=== PATIENT | female | born 1995 | race Caucasian/White ===

== ENCOUNTER 2020-12-06 05:33 | Observation (INO) | payer BC ==
--- NOTE | 2020-12-06 06:39 | ERPHSYRPT ---
- History of Present Illness Historian: patient Exam Limitations: other (Poor historian) Patient Subjective Stated Complaint: pt states "I was in [facility] for a week, got discharged yesterday and I'm still vomiting and having abd pain". Triage Nursing Assessment: pt c/o vomiting x2 this am, abd pain and unable to keep anything down. Pt was in [facility] x1 week, just got discharged yesterday, but not feeling any better. Pt c/o of hyperglycermia as well. Timing/Duration: other (1wk) Quality: aching, sharpness Abdominal Pain Onset Location: generalized abdomen Pain Radiation: no radiation Severity of Pain-Max: severe Severity of Pain-Current: moderate Modifying Factors: Improves With: nothing Associated Symptoms: loss of appetite, nausea, vomiting, No back, No chest pain, No diaphoresis, No diarrhea, No fever/chills, No fatigue, No headache, No heartburn, No neck pain, No rash, No shortness of breath, No syncope, No weakness Previous symptoms: same symptoms as today Hx Tetanus, Diphtheria Vaccination/Date Given: Yes Hx Influenza Vaccination/Date Given: No Hx Pneumococcal Vaccination/Date Given: No Immunizations Up to Date: Yes <HUNG SCANLON - Last Filed: 12/06/20 06:34> <ALMA GODINEZ - Last Filed: 12/06/20 10:32> - History of Present Illness Time Seen by Provider: 12/06/20 07:00 Physician History: 25 yo wf w N/V/generalized abdominal pain x 1wk. Pt released from [facility] on 12/05/20 after a 4 day stay for the same problems. Pt also had a week stay at [facility] the week before for the same problem. She has DM1 and denies hematemesis/melena/hematochezia/fever/chest pain/. Abdominal pain is generalized and rated 7/10. Nothing makes it better or worse. Accu check>200. (HUNG SCANLON) Allergies/Adverse Reactions: No Known Drug Allergies Allergy (Verified 12/06/20 05:59) Home Medications: Insulin Glargine,Hum.rec.anlog [Lantus] 38 unit SQ DAILY 12/06/20 [History] Insulin Lispro [Humalog Kwikpen U-100] 1 unit SQ TID PRN PRN 12/06/20 [History] Travel Risk - International Travel Have you traveled outside of the country in past 3 weeks: No - Coronavirus Screening Are you exhibiting any of the following symptoms?: Yes Symptoms: Vomiting/Diarrhea, Headaches/Body Aches/Fatigue Close contact with a COVID-19 positive Pt in past 14-21 Days: No - Vaccine Status Have you recieved a Covid-19 vaccination: No <HUNG SCANLON - Last Filed: 12/06/20 06:34> - Review of Systems Constitutional: No Symptoms, Fatigue, Lethargy Eyes: No Symptoms Ears, Nose, & Throat: No Symptoms Respiratory: No Symptoms Cardiac: No Symptoms Abdominal/Gastrointestinal: Abdominal Pain, Nausea, Vomiting, Appetite Changes, No Diarrhea, No Constipation, No Hematemesis, No Hematochezia, No Melena, No Dysphagia Genitourinary Symptoms: No Symptoms Musculoskeletal: No Symptoms Skin: No Symptoms Neurological: No Symptoms Psychological: No Symptoms Endocrine: No Symptoms Hematologic/Lymphatic: No Symptoms Immunological/Allergic: No Symptoms <HUNG SCANLON - Last Filed: 12/06/20 06:34> - Past Medical History Pertinent Past Medical History: Yes Cardiac History: Hypertension Endocrine Medical History: Diabetes Type I - Past Surgical History Past Surgical History: Yes Female Surgical History: Section, Tubal Ligation Other Surgical History: cyst removed from shoulder and back of head. - Social History Smoking Status: Never smoker Exposure to second hand smoke: Yes Drug Use: none Patient Lives Alone: No Significant Family History: no pertinent family hx - Female History Hx Last Menstrual Period: current Hx Now: No <HUNG SCANLON - Last Filed: 12/06/20 06:34> - Physical Exam General Appearance: no apparent distress, lethargy Eye Exam: PERRL/EOMI Ears, Nose, Throat Exam: normal ENT inspection, TMs normal, pharynx normal (Very poor dentition) Neck Exam: normal inspection, non-tender, supple Respiratory Exam: normal breath sounds, lungs clear, airway intact Cardiovascular Exam: tachycardia (Mild), No murmur Gastrointestinal/Abdomen Exam: soft, normal bowel sounds, No tenderness Back Exam: normal inspection, normal range of motion, No CVA tenderness Extremity Exam: normal inspection, normal range of motion Neurologic Exam: alert, oriented x 3, cooperative, [employer]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, normal mood/affect, sensation nml, No motor deficits, No sensory deficit Skin Exam: normal color, warm, dry, No rash Lymphatic Exam: No adenopathy SpO2 Interpretation: normal SpO2: 99 O2 Delivery: Room Air <HUNG SCANLON - Last Filed: 12/06/20 06:34> - Nursing Vital Signs Nursing Vital Signs: Initial Vital Signs Temperature 97.9 F 12/06/20 05:34 Pulse Rate 102 H 12/06/20 05:34 Respiratory Rate 16 12/06/20 05:34 Blood Pressure 138/108 12/06/20 05:34 O2 Sat by Pulse Oximetry 99 12/06/20 05:34 Pain Scale Pain Intensity 8 - Course Nursing assessment & vital signs reviewed: Yes <HUNG SCANLON - Last Filed: 12/06/20 06:34> - CT Exams Abdomen/Pelvis CT Interpretation: Tele-radiologist Report (Distal thoracic esophagus shows marked circumferential mucosal thickening possible GERD/possible esophagitis. Malignancy not likely but not completely excluded. Hepatic hemangioma, cholelithiasis, no signs of cholecystitis, urinary bladder distended, hydronephrosis, no appendicitis. Vascular calc) <ALMA GODINEZ - Last Filed: 12/06/20 10:32> Ordered Tests: Active Orders 24 hr Category Date Time Status ABDOMEN AND PELVIS W CONTRAST [CT] Stat Exams 12/06/20 07:52 Completed AMYLASE Stat Lab 12/06/20 07:00 Completed CBC W DIFF Stat Lab 12/06/20 07:00 Completed CMP Stat Lab 12/06/20 07:00 Completed CULTURE,URINE Stat Lab 12/06/20 06:59 Received HCG QUALITATIVE,SERUM Stat Lab 12/06/20 07:00 Completed LIPASE Stat Lab 12/06/20 07:00 Completed POCT GLUCOSE Stat Lab 12/06/20 05:52 Completed UA W/RFX UR CULTURE Stat Lab 12/06/20 06:59 Completed Urine Triage Profile Stat Lab 12/06/20 06:59 Completed Transfer Order Routine Transfer 12/06/20 Ordered Medication Summary Discontinued Medications Generic Name Dose Route Start Last Admin Trade Name Freq PRN Reason Stop Dose Admin Sodium Chloride 1,000 mls @ 999 mls/hr 12/06/20 06:40 12/06/20 08:11 Sodium Chloride 0.9% 1000 Ml IV 12/06/20 07:40 Infused .Q1H1M STA Infusion Sodium Chloride Confirm 12/06/20 06:52 Sodium Chloride 0.9% 1000 Ml Administered 12/06/20 06:53 Dose 1,000 mls @ ud .ROUTE .STK-MED ONE Ceftriaxone Sodium/Dextrose 1 g in 50 mls @ 100 mls/hr 12/06/20 07:46 12/06/20 08:49 Rocephin 1 Gm-D5w 50 Ml Bag IV 12/06/20 08:15 Infused STAT STA Infusion Ceftriaxone Sodium/Dextrose Confirm 12/06/20 07:54 Rocephin 1 Gm-D5w 50 Ml Bag Administered 12/06/20 07:55 Dose 1 g in 50 mls @ ud IV .STK-MED ONE Ondansetron HCl 4 mg 12/06/20 06:41 12/06/20 06:55 Zofran 4 Mg/2 Ml Vial IV 12/06/20 06:42 4 mg STAT ONE Administration Ondansetron HCl Confirm 12/06/20 06:52 Zofran 4 Mg/2 Ml Vial Administered 12/06/20 06:53 Dose 4 mg .ROUTE .STK-MED ONE Lab/Rad Data: Laboratory Result Diagrams 12/06/20 07:00 12/06/20 07:00 Laboratory Results 12/06/20 12/06/20 12/06/20 Range/Units 08:11 07:00 07:00 WBC (4.0-10.5) K/mm3 RBC (4.1-5.4) M/mm3 Hgb (12.0-16.0) gm/dl Hct (35-47) % MCV (78-100) fl MCH (26-32) pg MCHC (32-36) g/dl RDW (11.5-14.0) % Plt Count (150-450) K/mm3 MPV (7.5-11.0) fl Gran % (36.0-66.0) % Eos # (Auto) (0-0.5) Absolute Lymphs (auto) (1.0-4.6) Absolute Monos (auto) (0.0-1.3) Lymphocytes % (24.0-44.0) % Monocytes % (0.0-12.0) % Eosinophils % (0.00-5.0) % Basophils % (0.0-0.4) % Absolute Granulocytes (1.4-6.9) Basophils # (0-0.4) Sodium 131 L (137-145) mmol/L Potassium 3.8 (3.5-5.1) mmol/L Chloride 91 L (98-107) mmol/L Carbon Dioxide 32 H (22-30) mmol/L Anion Gap 11.5 (5-15) MEQ/L BUN 5 L (7-17) mg/dL Creatinine 0.47 L (0.52-1.04) mg/dL Estimated GFR > 60.0 ML/MIN Glucose 246 H (74-106) mg/dL POC Glucometer (74 to 106) mg/dL Calcium 9.5 (8.4-10.2) mg/dL Total Bilirubin 0.30 (0.2-1.3) mg/dL AST 22 (14-36) U/L ALT 17 (0-35) U/L Alkaline Phosphatase 160 H (38-126) U/L Serum Total Protein 7.2 (6.3-8.2) g/dL Albumin 3.8 (3.5-5.0) g/dL Amylase 53 (30-110) U/L Lipase 235 (23-300) U/L Serum , Qual NEGATIVE (Negative) Urine Color (YELLOW) Urine Appearance (CLEAR) Urine pH (5-6) Ur Specific [place] (1.005-1.025) Urine Protein (Negative) Urine Ketones (NEGATIVE) Urine Blood (0-5) Patrick/ul Urine Nitrite (NEGATIVE) Urine Bilirubin (NEGATIVE) Urine Urobilinogen (0-1) mg/dL Ur Leukocyte Esterase (NEGATIVE) Urine WBC (Auto) (0-5) /HPF Urine RBC (Auto) (0-2) /HPF U Epithel Cells (Auto) (FEW) /HPF Urine Bacteria (Auto) (NEGATIVE) /HPF Urine Culture Reflexed (NO) Urine Glucose (NEGATIVE) mg/dL Urine Opiates Level (NEGATIVE) Ur Methadone (NEGATIVE) Urine Barbiturates (NEGATIVE) Ur Phencyclidine (PCP) (NEGATIVE) Urine Amphetamine (NEGATIVE) U Benzodiazepine Level (NEGATIVE) Urine Cocaine (NEGATIVE) Urine Marijuana (THC) (NEGATIVE) Influenza Type A Ag NEGATIVE (NEGATIVE) Influenza Type B Ag NEGATIVE (NEGATIVE) RSV (PCR) NEGATIVE (Negative) SARS-CoV-2 (PCR) NEGATIVE (NEGATIVE) 12/06/20 12/06/20 12/06/20 Range/Units 07:00 06:59 06:59 WBC 5.2 (4.0-10.5) K/mm3 RBC 4.33 (4.1-5.4) M/mm3 Hgb 11.4 L (12.0-16.0) gm/dl Hct 36.5 (35-47) % MCV 84.3 (78-100) fl MCH 26.3 (26-32) pg MCHC 31.2 L (32-36) g/dl RDW 15.6 H (11.5-14.0) % Plt Count 302 (150-450) K/mm3 MPV 10.5 (7.5-11.0) fl Gran % 38.1 (36.0-66.0) % Eos # (Auto) 0.05 (0-0.5) Absolute Lymphs (auto) 2.68 (1.0-4.6) Absolute Monos (auto) 0.47 (0.0-1.3) Lymphocytes % 51.5 H (24.0-44.0) % Monocytes % 9.0 (0.0-12.0) % Eosinophils % 1.0 (0.00-5.0) % Basophils % 0.4 (0.0-0.4) % Absolute Granulocytes 1.98 (1.4-6.9) Basophils # 0.02 (0-0.4) Sodium (137-145) mmol/L Potassium (3.5-5.1) mmol/L Chloride (98-107) mmol/L Carbon Dioxide (22-30) mmol/L Anion Gap (5-15) MEQ/L BUN (7-17) mg/dL Creatinine (0.52-1.04) mg/dL Estimated GFR ML/MIN Glucose (74-106) mg/dL POC Glucometer (74 to 106) mg/dL Calcium (8.4-10.2) mg/dL Total Bilirubin (0.2-1.3) mg/dL AST (14-36) U/L ALT (0-35) U/L Alkaline Phosphatase (38-126) U/L Serum Total Protein (6.3-8.2) g/dL Albumin (3.5-5.0) g/dL Amylase (30-110) U/L Lipase (23-300) U/L Serum , Qual (Negative) Urine Color RED (YELLOW) Urine Appearance CLOUDY (CLEAR) Urine pH 9.0 (5-6) Ur Specific [place] 1.012 (1.005-1.025) Urine Protein 30 (Negative) Urine Ketones NEGATIVE (NEGATIVE) Urine Blood LARGE (0-5) Patrick/ul Urine Nitrite NEGATIVE (NEGATIVE) Urine Bilirubin NEGATIVE (NEGATIVE) Urine Urobilinogen NEGATIVE (0-1) mg/dL Ur Leukocyte Esterase MODERATE (NEGATIVE) Urine WBC (Auto) 16-25 (0-5) /HPF Urine RBC (Auto) >101 (0-2) /HPF U Epithel Cells (Auto) RARE (FEW) /HPF Urine Bacteria (Auto) FEW (NEGATIVE) /HPF Urine Culture Reflexed YES (NO) Urine Glucose >=500 (NEGATIVE) mg/dL Urine Opiates Level NEGATIVE (NEGATIVE) Ur Methadone NEGATIVE (NEGATIVE) Urine Barbiturates NEGATIVE (NEGATIVE) Ur Phencyclidine (PCP) NEGATIVE (NEGATIVE) Urine Amphetamine NEGATIVE (NEGATIVE) U Benzodiazepine Level NEGATIVE (NEGATIVE) Urine Cocaine NEGATIVE (NEGATIVE) Urine Marijuana (THC) NEGATIVE (NEGATIVE) Influenza Type A Ag (NEGATIVE) Influenza Type B Ag (NEGATIVE) RSV (PCR) (Negative) SARS-CoV-2 (PCR) (NEGATIVE) 12/06/20 Range/Units 05:52 WBC (4.0-10.5) K/mm3 RBC (4.1-5.4) M/mm3 Hgb (12.0-16.0) gm/dl Hct (35-47) % MCV (78-100) fl MCH (26-32) pg MCHC (32-36) g/dl RDW (11.5-14.0) % Plt Count (150-450) K/mm3 MPV (7.5-11.0) fl Gran % (36.0-66.0) % Eos # (Auto) (0-0.5) Absolute Lymphs (auto) (1.0-4.6) Absolute Monos (auto) (0.0-1.3) Lymphocytes % (24.0-44.0) % Monocytes % (0.0-12.0) % Eosinophils % (0.00-5.0) % Basophils % (0.0-0.4) % Absolute Granulocytes (1.4-6.9) Basophils # (0-0.4) Sodium (137-145) mmol/L Potassium (3.5-5.1) mmol/L Chloride (98-107) mmol/L Carbon Dioxide (22-30) mmol/L Anion Gap (5-15) MEQ/L BUN (7-17) mg/dL Creatinine (0.52-1.04) mg/dL Estimated GFR ML/MIN Glucose (74-106) mg/dL POC Glucometer 229 H (74 to 106) mg/dL Calcium (8.4-10.2) mg/dL Total Bilirubin (0.2-1.3) mg/dL AST (14-36) U/L ALT (0-35) U/L Alkaline Phosphatase (38-126) U/L Serum Total Protein (6.3-8.2) g/dL Albumin (3.5-5.0) g/dL Amylase (30-110) U/L Lipase (23-300) U/L Serum , Qual (Negative) Urine Color (YELLOW) Urine Appearance (CLEAR) Urine pH (5-6) Ur Specific [place] (1.005-1.025) Urine Protein (Negative) Urine Ketones (NEGATIVE) Urine Blood (0-5) Patrick/ul Urine Nitrite (NEGATIVE) Urine Bilirubin (NEGATIVE) Urine Urobilinogen (0-1) mg/dL Ur Leukocyte Esterase (NEGATIVE) Urine WBC (Auto) (0-5) /HPF Urine RBC (Auto) (0-2) /HPF U Epithel Cells (Auto) (FEW) /HPF Urine Bacteria (Auto) (NEGATIVE) /HPF Urine Culture Reflexed (NO) Urine Glucose (NEGATIVE) mg/dL Urine Opiates Level (NEGATIVE) Ur Methadone (NEGATIVE) Urine Barbiturates (NEGATIVE) Ur Phencyclidine (PCP) (NEGATIVE) Urine Amphetamine (NEGATIVE) U Benzodiazepine Level (NEGATIVE) Urine Cocaine (NEGATIVE) Urine Marijuana (THC) (NEGATIVE) Influenza Type A Ag (NEGATIVE) Influenza Type B Ag (NEGATIVE) RSV (PCR) (Negative) SARS-CoV-2 (PCR) (NEGATIVE) - Progress Progress: improved Discussed with : Gilberto Will see patient in: hospital (observation) Counseled pt/family regarding: lab results, diagnosis, rad results <ALMA GODINEZ - Last Filed: 12/06/20 10:32> - Progress Progress Note: 12/06/20 09:[address] Godinez at approximately [address] Godinez advised to follow-up on pending labs and reassess patient. Patient is a 25-year-old female presents to our ED with abdominal pain nausea and vomiting. Patient is type I diabetic. Patient recently released from [facility] for the same. Patient was experiencing nausea vomiting and abdominal pain. Patient symptoms have not improved since her discharge. Patient is experiencing the same complaints. I work-up reveals a urinary tract infection. Patient received a dose of Rocephin. Patient is mildly hyponatremic. IV fluids infused. Nausea treated. Patient received IV fluids. Patient still unable to tolerate p.o. Patient continues to complain of abdominal pain. CT abdomen pelvis completed. CT abdomen pelvis shows possible esophagitis/GERD, hepatic hemangioma cholelithiasis distended urinary bladder with collecting system dilation no appendicitis minimal atherosclerotic disease. Patent catheterized due to distended bladder possible outlet obstruction. 900 cc of urine expressed. Gordillo catheter maintained case discussed with Dr. Hill who accepts admission to observation. Patient is Covid negative. Plan of care discussed with patient. She agrees to admission at [facility] for further evaluation and treatment of her intractable nausea vomiting and abdominal discomfort. 12/06/20 09:57 12/06/20 10:10 12/06/20 10:31 (ALMA GODINEZ) <HUNG SCANLON - Last Filed: 12/06/20 06:34> - Departure Departure Disposition: Observation Critical Care Time: No <ALMA GODINEZ - Last Filed: 12/06/20 10:32> - Departure Clinical Impression: Nausea and vomiting, UTI (urinary tract infection), Abdominal pain, Hyponatremia, Esophagitis, GERD (gastroesophageal reflux disease), Liver hemangioma, Cholelithiasis, Hydronephrosis, Bladder distension, Vascular calcification, Urinary retention Condition: Stable Referrals: PATRICIA LACKEY [Primary Care Provider] -
[2020-12-06] MEDS ORDERED: Sodium Chloride 0.9% 1000 ML 1,000 ML IV STA (06:40)
[2020-12-06] MEDS ORDERED: Zofran 4 MG/2 ML VIAL IV ONE (06:41)
[2020-12-06] MEDS ORDERED: Sodium Chloride 0.9% 1000 ML 1,000 ML ONE (06:52)
[2020-12-06] MEDS ORDERED: Zofran 4 MG/2 ML VIAL ONE (06:52)
[2020-12-06 06:59] LABS: Absolute Neutrophil Ct (ANC) 1.98 (1.4-6.9); BASOPHIL % 0.4 % (0.0-0.4); Basophil (Absolute #) 0.02 (0-0.4); Eosinophil (Absolute #) 0.05 (0-0.5); Hematocrit 36.5 % (35-47); Hemoglobin 11.4 gm/dl (12.0-16.0); Lymphocyte (Absolute #) 2.68 (1.0-4.6); Lymphocytes % 51.5 % (24.0-44.0); Mean Cell Volume 84.3 fl (78-100); Mean Corpuscular Hemoglobin 26.3 pg (26-32); Mean Corpuscular Hgb Concent. 31.2 g/dl (32-36); Mean Platelet Volume 10.5 fl (7.5-11.0); Monocyte (Absolute #) 0.47 (0.0-1.3); Neutrophil % 38.1 % (36.0-66.0); Platelet Count 302 K/mm3 (150-450); Red Blood Count 4.33 M/mm3 (4.1-5.4); Red Cell Distribution Width 15.6 % (11.5-14.0); White Blood Count 5.2 K/mm3 (4.0-10.5)
[2020-12-06 07:17] LABS: ALBUMIN 3.8 g/dL (3.5-5.0); ALKALINE PHOSPHATASE 160 U/L (38-126); AMYLASE 53 U/L (30-110); ANION GAP 11.5 MEQ/L (5-15); BLOOD UREA NITROGEN 5 mg/dL (7-17); CHLORIDE 91 mmol/L (98-107); Calcium 9.5 mg/dL (8.4-10.2); Carbon Dioxide 32 mmol/L (22-30); Creatinine 1 0.47 mg/dL (0.52-1.04); EST GLOMERULAR FILTRATION RATE > 60.0 ML/MIN; Glucose 246 mg/dL (74-106); LIPASE 235 U/L (23-300); Potassium 3.8 mmol/L (3.5-5.1); SGOT/AST 22 U/L (14-36); SGPT/ALT 17 U/L (0-35); SODIUM 131 mmol/L (137-145); Total Protein 7.2 g/dL (6.3-8.2)
[2020-12-06 07:24] LABS: Appearance CLOUDY (CLEAR); Bacteria FEW /HPF (NEGATIVE); Bilirubin NEGATIVE (NEGATIVE); Blood LARGE Ery/ul (0-5); Epithelial Cells RARE /HPF (FEW); Glucose >=500 mg/dL (NEGATIVE); Ketones NEGATIVE (NEGATIVE); Leukocyte Esterase MODERATE (NEGATIVE); Nitrite NEGATIVE (NEGATIVE); Protein,Urine Dip 30 (Negative); Specific Gravity 1.012 (1.005-1.025); Urobilinogen NEGATIVE mg/dL (0-1)
[2020-12-06 07:28] LABS: RBC >101 /HPF (0-2)
[2020-12-06 07:30] LABS: Amphetamine,Urine NEGATIVE (NEGATIVE); Barbiturate,Urine NEGATIVE (NEGATIVE); Benzodiazepine,Urine NEGATIVE (NEGATIVE); Cocaine,Urine NEGATIVE (NEGATIVE); Methadone,Urine NEGATIVE (NEGATIVE); Opiate,Urine NEGATIVE (NEGATIVE); PCP,Urine NEGATIVE (NEGATIVE); THC,Urine NEGATIVE (NEGATIVE)
[2020-12-06] MEDS ORDERED: ROCEPHIN 1 Gm-D5w 50 ml Bag** 1 G/50 ML IVPB IV STA (07:46)
[2020-12-06] MEDS ORDERED: ROCEPHIN 1 Gm-D5w 50 ml Bag** 1 G/50 ML IVPB IV ONE (07:54)
[2020-12-06 09:47] LABS: INFLUENZA A NEGATIVE (NEGATIVE); INFLUENZA B NEGATIVE (NEGATIVE); RESPIRATORY SYNCTIAL VIRUS NEGATIVE (Negative)
--- NOTE | 2020-12-06 09:59 | XRAY ---
Exam: CT of the abdomen and pelvis with IV contrast from 12/06/2020. Total DLP: 307.26 mGy-cm Comparison: None. Indication: 25-year-old female with diffuse/generalized abdominal pain, nausea and vomiting for one week. Technique: Post-IV contrast axial images were obtained through the abdomen and pelvis during automated injection of 80 cc of Isovue-370 contrast material. Reconstructed coronal and sagittal images were created and reviewed. No oral contrast was administered. 2 sets of delayed images were obtained as well. Findings: The visualized lung bases are clear. The heart size is normal. There is marked circumferential mucosal thickening about the distal thoracic esophagus with only a tiny amount of central intraluminal air seen on axial images #8 through #10. Consider GERD/esophagitis. Malignancy is possible, but statistically less likely. Correlate clinically. The liver appears of normal size. There is a 1.5 cm diameter low-attenuation lesion within the lateral aspect of the right hepatic lobe which displays some eccentric focal enhancement at its anterior inferior margin. This likely represents a small hemangioma. On the delayed images, this lesion appears to fade except for some minimal residual peripheral enhancement. I believe there is a second tiny hemangioma within the inferior right hepatic lobe posteriorly as well. The gallbladder is mildly distended and reveals some high attenuation density within its posterior dependent aspect suggestive of cholelithiasis. No gallbladder wall thickening or biliary duct distention is seen. The spleen is of normal size and reveals no mass. There is a paucity of intraperitoneal fat due to the patient's thin body habitus. The pancreas appears grossly unremarkable. The adrenal glands appear normal size and configuration. The kidneys are normal size and reveal no calculi or mass. Both kidneys function. There appears to be mild right-sided hydronephrosis and minimal left-sided hydronephrosis. In addition, delay images reveal a moderately large extrarenal pelvis on the right and a mild to moderate sized extrarenal pelvis on the left. The diameter of both ureters appears increased, right greater than left. However, I see no obstructing ureteral stone. On the delay images within the upper pelvis, the right pelvic ureter measures 1.6 cm in diameter and the pelvic left ureter measures 1.1 cm in diameter. The urinary bladder weakly opacifies with the excreted urine contrast. It is markedly distended which may be accounting for the prominence of the upper collecting systems and ureters bilaterally, right greater than left. Minimal atherosclerotic vascular calcification is seen along the left margin of the distal abdominal aorta on axial image #38 of series 2 which is a bit unusual for a 25-year-old. Correlate clinically regarding diabetes. No abdominal aortic aneurysm or abnormal retroperitoneal lymphadenopathy is seen. There is no free intraperitoneal air or ventral abdominal wall hernia. The bowel is not distended. There is no evidence of bowel obstruction. The stomach lumen and small bowel are largely unopacified. Some contrast is seen with the cecum, ascending colon, and transverse colon. This may represent medication that the patient has ingested. I see no definite findings of acute appendicitis within the right lower quadrant. The uterus is anteflexed and tilted mildly toward the right.. There is no free intraperitoneal fluid or abnormal pelvic lymphadenopathy. The pelvic adnexa appear unremarkable. The bladder is significantly enlarged rising to the level of the inferior vertebral endplate of L4. On sagittal image #85, this measures 14.5 cm in craniocaudal dimension and 7.7 cm in AP dimension. On coronal image #44, the urinary bladder measures 10.2 cm in maximum width. The skeleton reveals no acute fracture or aggressive bone lesion. Impression: 1. Within the distal thoracic esophagus, there is marked circumferential mucosal thickening. For example, see axial image #8 of series 2. This may be due to GERD or distal thoracic esophagitis. Other etiologies including malignancy are not completely excluded. Correlate clinically. 2. There is a probable small hepatic hemangioma measuring 1.5 cm in diameter within the mid lateral aspect of the right hepatic lobe. This is an incidental finding. There is also a suggestion of a tiny second hepatic hemangioma within the inferior posterior aspect of the right hepatic lobe on axial image #34 of series 2. 3. Cholelithiasis. No gallbladder wall thickening or biliary duct distention is seen. 4. The urinary bladder is markedly distended rising to the level of the inferior endplate of L4. This may be causing the prominence of the upper collecting systems and ureters, right greater than left. Correlate clinically regarding bladder outlet obstruction. I do not see an obstructing ureteral stone. The remainder of the kidneys appears unremarkable. 5. I see no findings of acute appendicitis or other acute disease within the abdomen and pelvis. 6. Minimal atherosclerotic vascular calcification is seen within the distal abdominal aorta. See above.
[2020-12-06] MEDS: MORPHINE SULFATE 2 MG INJ IV PRN ×4 (10:58→22:57)
[2020-12-06] MEDS: Sodium Chloride 0.9% 1000 ML 1,000 ML IV SCH ×2 (11:00→19:49)
[2020-12-06] MEDS: ROCEPHIN 1 Gm-D5w 50 ml Bag** 1 G/50 ML IVPB IV SCH (11:01)
[2020-12-06] MEDS: Coreg 3.125 MG PO SCH ×2 (12:05→21:42)
[2020-12-06] MEDS: Zofran 4 MG/2 ML VIAL IV PRN ×2 (12:22→18:47)
[2020-12-06] MEDS: Reglan 10 MG/2 ML IV SCH ×2 (13:30→17:26)
[2020-12-06] MEDS: PROTONIX 40 MG IV IV SCH (13:31)
--- NOTE | 2020-12-06 20:32 | PCM.HP ---
History of Present Illness - Chief Complaint Chief Complaint: intractable nausea and vomiting for 3-4 days History of Present Illness: is a 25 year old female.N/V/generalized abdominal pain x 1wk. Pt released from [facility] on 12/05/20 after a 4 day stay for the same problems. Pt also had a week stay at [facility] the week before for the same problem. She has DM1 and denies hematemesis/melena/hematochezia/fever/chest pain/. Abdominal pain is generalized and rated 7/10. Nothing makes it better or worse. Accu check>200. - Review of Systems Constitutional: Fatigue, Lethargy, Malaise, Weakness, No Fever, No Chills Eyes: No Symptoms Ears, Nose, & Throat: No Symptoms Respiratory: No Cough, No Short Of Breath Cardiac: No Chest Pain, No Edema, No Syncope Abdominal/Gastrointestinal: Abdominal Pain, Nausea, Vomiting, No Diarrhea Genitourinary Symptoms: No Dysuria Musculoskeletal: No Back Pain, No Neck Pain Skin: No Rash Neurological: No Dizziness, No Focal Weakness, No Sensory Changes Psychological: No Symptoms Endocrine: No Symptoms Hematologic/Lymphatic: No Symptoms Immunological/Allergic: No Symptoms Medications & Allergies Home Medications: Home Medication List Carvedilol 3.125 mg [Coreg 3.125 MG] 3.125 mg PO BID 12/06/20 [History Confirmed 12/06/20] Insulin Glargine,Hum.rec.anlog [Lantus] 38 unit SQ DAILY 12/06/20 [History Confirmed 12/06/20] Insulin Lispro [Humalog Kwikpen U-100] 1 unit SQ TID PRN PRN 12/06/20 [History Confirmed 12/06/20] Allergies/Adverse Reactions: Allergies Allergy/AdvReac Type Severity Reaction Status Date / Time No Known Drug Allergies Allergy Verified 12/06/20 05:59 - Past Medical History Past Medical History: Yes Cardiac History: Hypertension Endocrine Medical History: Diabetes Type I - Female History Hx Last Menstrual Period: current Are you now?: No - Past Surgical History Past Surgical History: Yes Female Surgical History: Section, Tubal Ligation Other Surgical History: cyst removed from shoulder and back of head. - Social History Smoking Status: Never smoker Exposure to second hand smoke: Yes Alcohol: None Drug Use: none Significant Family History: no pertinent family hx - Physical Exam Vital Signs: Vital Signs - 24 hr Temp Pulse Resp BP Pulse Ox 12/06/20 16:00 99.3 F 93 H 14 120/86 99 12/06/20 12:00 97 H 18 148/105 99 12/06/20 09:08 97 H 18 148/105 99 12/06/20 08:02 103 H 18 113/91 98 12/06/20 07:33 100 H 20 167/108 100 12/06/20 06:48 99 12/06/20 05:34 97.9 F 102 H 16 138/108 99 General Appearance: no apparent distress, alert Neurologic Exam: alert, oriented x 3, cooperative, normal mood/affect, nml cerebellar function, nml station & gait, sensation nml, No motor deficits Eye Exam: PERRL/EOMI, eyes nml inspection Ears, Nose, Throat Exam: normal ENT inspection, TMs normal, pharynx normal, moist mucous membranes Neck Exam: normal inspection, non-tender, supple, full range of motion Respiratory Exam: normal breath sounds, lungs clear, No respiratory distress Cardiovascular Exam: regular rate/rhythm, normal heart sounds, normal peripheral pulses Gastrointestinal/Abdomen Exam: soft, normal bowel sounds, No tenderness, No mass Back Exam: normal inspection, normal range of motion, No CVA tenderness, No vertebral tenderness Extremity Exam: normal inspection, normal range of motion, pelvis stable Skin Exam: normal color, warm, dry, No rash Lymphatic Exam: No adenopathy Results - Labs Lab/Micro Results: Lab Results-Last 24 Hours 12/06/20 12/06/20 12/06/20 Range/Units 05:52 06:59 06:59 WBC (4.0-10.5) K/mm3 RBC (4.1-5.4) M/mm3 Hgb (12.0-16.0) gm/dl Hct (35-47) % MCV (78-100) fl MCH (26-32) pg MCHC (32-36) g/dl RDW (11.5-14.0) % Plt Count (150-450) K/mm3 MPV (7.5-11.0) fl Gran % (36.0-66.0) % Eos # (Auto) (0-0.5) Absolute Lymphs (auto) (1.0-4.6) Absolute Monos (auto) (0.0-1.3) Lymphocytes % (24.0-44.0) % Monocytes % (0.0-12.0) % Eosinophils % (0.00-5.0) % Basophils % (0.0-0.4) % Absolute Granulocytes (1.4-6.9) Basophils # (0-0.4) Sodium (137-145) mmol/L Potassium (3.5-5.1) mmol/L Chloride (98-107) mmol/L Carbon Dioxide (22-30) mmol/L Anion Gap (5-15) MEQ/L BUN (7-17) mg/dL Creatinine (0.52-1.04) mg/dL Estimated GFR ML/MIN Glucose (74-106) mg/dL POC Glucometer 229 H (74 to 106) mg/dL Hemoglobin A1c (4.5-6.0) % Calcium (8.4-10.2) mg/dL Total Bilirubin (0.2-1.3) mg/dL AST (14-36) U/L ALT (0-35) U/L Alkaline Phosphatase (38-126) U/L Serum Total Protein (6.3-8.2) g/dL Albumin (3.5-5.0) g/dL Amylase (30-110) U/L Lipase (23-300) U/L Serum , Qual (Negative) Urine Color RED (YELLOW) Urine Appearance CLOUDY (CLEAR) Urine pH 9.0 (5-6) Ur Specific [place] 1.012 (1.005-1.025) Urine Protein 30 (Negative) Urine Ketones NEGATIVE (NEGATIVE) Urine Blood LARGE (0-5) Patrick/ul Urine Nitrite NEGATIVE (NEGATIVE) Urine Bilirubin NEGATIVE (NEGATIVE) Urine Urobilinogen NEGATIVE (0-1) mg/dL Ur Leukocyte Esterase MODERATE (NEGATIVE) Urine WBC (Auto) 16-25 (0-5) /HPF Urine RBC (Auto) >101 (0-2) /HPF U Epithel Cells (Auto) RARE (FEW) /HPF Urine Bacteria (Auto) FEW (NEGATIVE) /HPF Urine Culture Reflexed YES (NO) Urine Glucose >=500 (NEGATIVE) mg/dL Urine Opiates Level NEGATIVE (NEGATIVE) Ur Methadone NEGATIVE (NEGATIVE) Urine Barbiturates NEGATIVE (NEGATIVE) Ur Phencyclidine (PCP) NEGATIVE (NEGATIVE) Urine Amphetamine NEGATIVE (NEGATIVE) U Benzodiazepine Level NEGATIVE (NEGATIVE) Urine Cocaine NEGATIVE (NEGATIVE) Urine Marijuana (THC) NEGATIVE (NEGATIVE) Influenza Type A Ag (NEGATIVE) Influenza Type B Ag (NEGATIVE) RSV (PCR) (Negative) SARS-CoV-2 (PCR) (NEGATIVE) 12/06/20 12/06/20 12/06/20 Range/Units 07:00 07:00 07:00 WBC 5.2 (4.0-10.5) K/mm3 RBC 4.33 (4.1-5.4) M/mm3 Hgb 11.4 L (12.0-16.0) gm/dl Hct 36.5 (35-47) % MCV 84.3 (78-100) fl MCH 26.3 (26-32) pg MCHC 31.2 L (32-36) g/dl RDW 15.6 H (11.5-14.0) % Plt Count 302 (150-450) K/mm3 MPV 10.5 (7.5-11.0) fl Gran % 38.1 (36.0-66.0) % Eos # (Auto) 0.05 (0-0.5) Absolute Lymphs (auto) 2.68 (1.0-4.6) Absolute Monos (auto) 0.47 (0.0-1.3) Lymphocytes % 51.5 H (24.0-44.0) % Monocytes % 9.0 (0.0-12.0) % Eosinophils % 1.0 (0.00-5.0) % Basophils % 0.4 (0.0-0.4) % Absolute Granulocytes 1.98 (1.4-6.9) Basophils # 0.02 (0-0.4) Sodium 131 L (137-145) mmol/L Potassium 3.8 (3.5-5.1) mmol/L Chloride 91 L (98-107) mmol/L Carbon Dioxide 32 H (22-30) mmol/L Anion Gap 11.5 (5-15) MEQ/L BUN 5 L (7-17) mg/dL Creatinine 0.47 L (0.52-1.04) mg/dL Estimated GFR > 60.0 ML/MIN Glucose 246 H (74-106) mg/dL POC Glucometer (74 to 106) mg/dL Hemoglobin A1c (4.5-6.0) % Calcium 9.5 (8.4-10.2) mg/dL Total Bilirubin 0.30 (0.2-1.3) mg/dL AST 22 (14-36) U/L ALT 17 (0-35) U/L Alkaline Phosphatase 160 H (38-126) U/L Serum Total Protein 7.2 (6.3-8.2) g/dL Albumin 3.8 (3.5-5.0) g/dL Amylase 53 (30-110) U/L Lipase 235 (23-300) U/L Serum , Qual NEGATIVE (Negative) Urine Color (YELLOW) Urine Appearance (CLEAR) Urine pH (5-6) Ur Specific [place] (1.005-1.025) Urine Protein (Negative) Urine Ketones (NEGATIVE) Urine Blood (0-5) Patrick/ul Urine Nitrite (NEGATIVE) Urine Bilirubin (NEGATIVE) Urine Urobilinogen (0-1) mg/dL Ur Leukocyte Esterase (NEGATIVE) Urine WBC (Auto) (0-5) /HPF Urine RBC (Auto) (0-2) /HPF U Epithel Cells (Auto) (FEW) /HPF Urine Bacteria (Auto) (NEGATIVE) /HPF Urine Culture Reflexed (NO) Urine Glucose (NEGATIVE) mg/dL Urine Opiates Level (NEGATIVE) Ur Methadone (NEGATIVE) Urine Barbiturates (NEGATIVE) Ur Phencyclidine (PCP) (NEGATIVE) Urine Amphetamine (NEGATIVE) U Benzodiazepine Level (NEGATIVE) Urine Cocaine (NEGATIVE) Urine Marijuana (THC) (NEGATIVE) Influenza Type A Ag (NEGATIVE) Influenza Type B Ag (NEGATIVE) RSV (PCR) (Negative) SARS-CoV-2 (PCR) (NEGATIVE) 12/06/20 12/06/20 12/06/20 Range/Units 08:11 11:23 13:00 WBC (4.0-10.5) K/mm3 RBC (4.1-5.4) M/mm3 Hgb (12.0-16.0) gm/dl Hct (35-47) % MCV (78-100) fl MCH (26-32) pg MCHC (32-36) g/dl RDW (11.5-14.0) % Plt Count (150-450) K/mm3 MPV (7.5-11.0) fl Gran % (36.0-66.0) % Eos # (Auto) (0-0.5) Absolute Lymphs (auto) (1.0-4.6) Absolute Monos (auto) (0.0-1.3) Lymphocytes % (24.0-44.0) % Monocytes % (0.0-12.0) % Eosinophils % (0.00-5.0) % Basophils % (0.0-0.4) % Absolute Granulocytes (1.4-6.9) Basophils # (0-0.4) Sodium (137-145) mmol/L Potassium (3.5-5.1) mmol/L Chloride (98-107) mmol/L Carbon Dioxide (22-30) mmol/L Anion Gap (5-15) MEQ/L BUN (7-17) mg/dL Creatinine (0.52-1.04) mg/dL Estimated GFR ML/MIN Glucose (74-106) mg/dL POC Glucometer 203 H (74 to 106) mg/dL Hemoglobin A1c > 14.00 H (4.5-6.0) % Calcium (8.4-10.2) mg/dL Total Bilirubin (0.2-1.3) mg/dL AST (14-36) U/L ALT (0-35) U/L Alkaline Phosphatase (38-126) U/L Serum Total Protein (6.3-8.2) g/dL Albumin (3.5-5.0) g/dL Amylase (30-110) U/L Lipase (23-300) U/L Serum , Qual (Negative) Urine Color (YELLOW) Urine Appearance (CLEAR) Urine pH (5-6) Ur Specific [place] (1.005-1.025) Urine Protein (Negative) Urine Ketones (NEGATIVE) Urine Blood (0-5) Patrick/ul Urine Nitrite (NEGATIVE) Urine Bilirubin (NEGATIVE) Urine Urobilinogen (0-1) mg/dL Ur Leukocyte Esterase (NEGATIVE) Urine WBC (Auto) (0-5) /HPF Urine RBC (Auto) (0-2) /HPF U Epithel Cells (Auto) (FEW) /HPF Urine Bacteria (Auto) (NEGATIVE) /HPF Urine Culture Reflexed (NO) Urine Glucose (NEGATIVE) mg/dL Urine Opiates Level (NEGATIVE) Ur Methadone (NEGATIVE) Urine Barbiturates (NEGATIVE) Ur Phencyclidine (PCP) (NEGATIVE) Urine Amphetamine (NEGATIVE) U Benzodiazepine Level (NEGATIVE) Urine Cocaine (NEGATIVE) Urine Marijuana (THC) (NEGATIVE) Influenza Type A Ag NEGATIVE (NEGATIVE) Influenza Type B Ag NEGATIVE (NEGATIVE) RSV (PCR) NEGATIVE (Negative) SARS-CoV-2 (PCR) NEGATIVE (NEGATIVE) 12/06/20 Range/Units 16:05 WBC (4.0-10.5) K/mm3 RBC (4.1-5.4) M/mm3 Hgb (12.0-16.0) gm/dl Hct (35-47) % MCV (78-100) fl MCH (26-32) pg MCHC (32-36) g/dl RDW (11.5-14.0) % Plt Count (150-450) K/mm3 MPV (7.5-11.0) fl Gran % (36.0-66.0) % Eos # (Auto) (0-0.5) Absolute Lymphs (auto) (1.0-4.6) Absolute Monos (auto) (0.0-1.3) Lymphocytes % (24.0-44.0) % Monocytes % (0.0-12.0) % Eosinophils % (0.00-5.0) % Basophils % (0.0-0.4) % Absolute Granulocytes (1.4-6.9) Basophils # (0-0.4) Sodium (137-145) mmol/L Potassium (3.5-5.1) mmol/L Chloride (98-107) mmol/L Carbon Dioxide (22-30) mmol/L Anion Gap (5-15) MEQ/L BUN (7-17) mg/dL Creatinine (0.52-1.04) mg/dL Estimated GFR ML/MIN Glucose (74-106) mg/dL POC Glucometer 177 H (74 to 106) mg/dL Hemoglobin A1c (4.5-6.0) % Calcium (8.4-10.2) mg/dL Total Bilirubin (0.2-1.3) mg/dL AST (14-36) U/L ALT (0-35) U/L Alkaline Phosphatase (38-126) U/L Serum Total Protein (6.3-8.2) g/dL Albumin (3.5-5.0) g/dL Amylase (30-110) U/L Lipase (23-300) U/L Serum , Qual (Negative) Urine Color (YELLOW) Urine Appearance (CLEAR) Urine pH (5-6) Ur Specific [place] (1.005-1.025) Urine Protein (Negative) Urine Ketones (NEGATIVE) Urine Blood (0-5) Patrick/ul Urine Nitrite (NEGATIVE) Urine Bilirubin (NEGATIVE) Urine Urobilinogen (0-1) mg/dL Ur Leukocyte Esterase (NEGATIVE) Urine WBC (Auto) (0-5) /HPF Urine RBC (Auto) (0-2) /HPF U Epithel Cells (Auto) (FEW) /HPF Urine Bacteria (Auto) (NEGATIVE) /HPF Urine Culture Reflexed (NO) Urine Glucose (NEGATIVE) mg/dL Urine Opiates Level (NEGATIVE) Ur Methadone (NEGATIVE) Urine Barbiturates (NEGATIVE) Ur Phencyclidine (PCP) (NEGATIVE) Urine Amphetamine (NEGATIVE) U Benzodiazepine Level (NEGATIVE) Urine Cocaine (NEGATIVE) Urine Marijuana (THC) (NEGATIVE) Influenza Type A Ag (NEGATIVE) Influenza Type B Ag (NEGATIVE) RSV (PCR) (Negative) SARS-CoV-2 (PCR) (NEGATIVE) Accuchecks Date 12/06/20 Date 12/06/20 Date 12/06/20 Time 16:19 Time 12:02 Time 06:20 - Radiology Impressions Radiology Exams & Impressions: Radiology Procedures Category Date Time Status ABDOMEN AND PELVIS W CONTRAST [CT] Stat Exams 12/06/20 07:[address]/ABDOMEN AND PELVIS W CONTRAST Exam: CT of the abdomen and pelvis with IV contrast from 12/06/2020. Total DLP: 307.26 mGy-cm Comparison: None. Indication: 25-year-old female with diffuse/generalized abdominal pain, nausea and vomiting for one week. Technique: Post-IV contrast axial images were obtained through the abdomen and pelvis during automated injection of 80 cc of Isovue-370 contrast material. Reconstructed coronal and sagittal images were created and reviewed. No oral contrast was administered. 2 sets of delayed images were obtained as well. Findings: The visualized lung bases are clear. The heart size is normal. There is marked circumferential mucosal thickening about the distal thoracic esophagus with only a tiny amount of central intraluminal air seen on axial images #8 through #10. Consider GERD/esophagitis. Malignancy is possible, but statistically less likely. Correlate clinically. The liver appears of normal size. There is a 1.5 cm diameter low-attenuation lesion within the lateral aspect of the right hepatic lobe which displays some eccentric focal enhancement at its anterior inferior margin. This likely represents a small hemangioma. On the delayed images, this lesion appears to fade except for some minimal residual peripheral enhancement. I believe there is a second tiny hemangioma within the inferior right hepatic lobe posteriorly as well. The gallbladder is mildly distended and reveals some high attenuation density within its posterior dependent aspect suggestive of cholelithiasis. No gallbladder wall thickening or biliary duct distention is seen. The spleen is of normal size and reveals no mass. There is a paucity of intraperitoneal fat due to the patient's thin body habitus. The pancreas appears grossly unremarkable. The adrenal glands appear normal size and configuration. The kidneys are normal size and reveal no calculi or mass. Both kidneys function. There appears to be mild right-sided hydronephrosis and minimal left-sided hydronephrosis. In addition, delay images reveal a moderately large extrarenal pelvis on the right and a mild to moderate sized extrarenal pelvis on the left. The diameter of both ureters appears increased, right greater than left. However, I see no obstructing ureteral stone. On the delay images within the upper pelvis, the right pelvic ureter measures 1.6 cm in diameter and the pelvic left ureter measures 1.1 cm in diameter. The urinary bladder weakly opacifies with the excreted urine contrast. It is markedly distended which may be accounting for the prominence of the upper collecting systems and ureters bilaterally, right greater than left. Minimal atherosclerotic vascular calcification is seen along the left margin of the distal abdominal aorta on axial image #38 of series 2 which is a bit unusual for a 25-year-old. Correlate clinically regarding diabetes. No abdominal aortic aneurysm or abnormal retroperitoneal lymphadenopathy is seen. There is no free intraperitoneal air or ventral abdominal wall hernia. The bowel is not distended. There is no evidence of bowel obstruction. The stomach lumen and small bowel are largely unopacified. Some contrast is seen with the cecum, ascending colon, and transverse colon. This may represent medication that the patient has ingested. I see no definite findings of acute appendicitis within the right lower quadrant. The uterus is anteflexed and tilted mildly toward the right.. There is no free intraperitoneal fluid or abnormal pelvic lymphadenopathy. The pelvic adnexa appear unremarkable. The bladder is significantly enlarged rising to the level of the inferior vertebral endplate of L4. On sagittal image #85, this measures 14.5 cm in craniocaudal dimension and 7.7 cm in AP dimension. On coronal image #44, the urinary bladder measures 10.2 cm in maximum width. The skeleton reveals no acute fracture or aggressive bone lesion. Impression: 1. Within the distal thoracic esophagus, there is marked circumferential mucosal thickening. For example, see axial image #8 of series 2. This may be due to GERD or distal thoracic esophagitis. Other etiologies including malignancy are not completely excluded. Correlate clinically. 2. There is a probable small hepatic hemangioma measuring 1.5 cm in diameter within the mid lateral aspect of the right hepatic lobe. This is an incidental finding. There is also a suggestion of a tiny second hepatic hemangioma within the inferior posterior aspect of the right hepatic lobe on axial image #34 of series 2. 3. Cholelithiasis. No gallbladder wall thickening or biliary duct distention is seen. Assessment/Plan (1) Abdominal pain Current Visit: Yes Status: Acute Qualifiers: Abdominal location: right lower quadrant Qualified Code(s): R10.31 - Right lower quadrant pain Code(s): R10.9 - UNSPECIFIED ABDOMINAL PAIN (2) Cholelithiasis Current Visit: Yes Status: Acute Qualifiers: Cholelithiasis location: gallbladder Cholecystitis presence: without cholecystitis
[2020-12-06] MEDS: HUMALOG SQ PRN (21:42)
[2020-12-07] MEDS: Reglan 10 MG/2 ML IV SCH ×4 (01:05→16:28)
[2020-12-07] MEDS: MORPHINE SULFATE 2 MG INJ IV PRN ×5 (04:30→22:54)
[2020-12-07] MEDS: Sodium Chloride 0.9% 1000 ML 1,000 ML IV SCH ×2 (05:26→15:30)
[2020-12-07 05:31] LABS: Absolute Neutrophil Ct (ANC) 2.34 (1.4-6.9); BASOPHIL % 0.5 % (0.0-0.4); Basophil (Absolute #) 0.03 (0-0.4); Eosinophil % 1.3 % (0.00-5.0); Eosinophil (Absolute #) 0.08 (0-0.5); Hematocrit 31.2 % (35-47); Hemoglobin 9.8 gm/dl (12.0-16.0); Lymphocyte (Absolute #) 3.16 (1.0-4.6); Lymphocytes % 51.3 % (24.0-44.0); Mean Cell Volume 85.7 fl (78-100); Mean Corpuscular Hemoglobin 26.9 pg (26-32); Mean Corpuscular Hgb Concent. 31.4 g/dl (32-36); Mean Platelet Volume 9.4 fl (7.5-11.0); Monocyte (Absolute #) 0.55 (0.0-1.3); Monocytes % 8.9 % (0.0-12.0); Platelet Count 335 K/mm3 (150-450); Red Blood Count 3.64 M/mm3 (4.1-5.4); Red Cell Distribution Width 15.2 % (11.5-14.0); White Blood Count 6.2 K/mm3 (4.0-10.5)
[2020-12-07 05:53] LABS: BILIRUBIN,TOTAL 0.2 mg/dL (0.2-1.3); Direct Bilirubin 0.2 mg/dL (0.0-0.4); Total Protein 5.9 g/dL (6.3-8.2)
[2020-12-07 06:02] LABS: ALKALINE PHOSPHATASE 120 U/L (38-126); ANION GAP 4.3 MEQ/L (5-15); BLOOD UREA NITROGEN 5 mg/dL (7-17); CHLORIDE 98 mmol/L (98-107); Calcium 8.2 mg/dL (8.4-10.2); Carbon Dioxide 27 mmol/L (22-30); Creatinine 1 0.41 mg/dL (0.52-1.04); EST GLOMERULAR FILTRATION RATE > 60.0 ML/MIN; Glucose 214 mg/dL (74-106); Potassium 3.8 mmol/L (3.5-5.1); SGOT/AST 18 U/L (14-36); SGPT/ALT 12 U/L (0-35); SODIUM 125 mmol/L (137-145)
[2020-12-07] MEDS: HUMALOG SQ PRN ×4 (07:51→22:07)
--- NOTE | 2020-12-07 07:52 | PCM.NOTE ---
Date and Time: 12/07/20 0746 Subjective Assessment: doing better, surgical consult for lap cholecystectomy - Review of Systems Constitutional: No Fever, No Chills Eyes: No Symptoms Ears, Nose, & Throat: No Symptoms Respiratory: No Cough, No Short Of Breath Cardiac: No Chest Pain, No Edema, No Syncope Abdominal/Gastrointestinal: No Abdominal Pain, No Nausea, No Vomiting, No Diarrhea Genitourinary Symptoms: No Dysuria Musculoskeletal: No Back Pain, No Neck Pain Skin: No Rash Neurological: No Dizziness, No Focal Weakness, No Sensory Changes Psychological: No Symptoms Endocrine: No Symptoms Hematologic/Lymphatic: No Symptoms Immunological/Allergic: No Symptoms Objective Exam General Appearance: no apparent distress, alert Neurologic Exam: alert, oriented x 3, cooperative, normal mood/affect, nml cerebellar function, sensation nml, No motor deficits Skin Exam: normal color, warm, dry Eye Exam: PERRL, EOMI, eyes nml inspection Ears, Nose, Throat Exam: normal ENT inspection, pharynx normal, moist mucous membranes Neck Exam: normal inspection, non-tender, supple, full range of motion Respiratory Exam: normal breath sounds, lungs clear, No respiratory distress Cardiovascular Exam: regular rate/rhythm, normal heart sounds Gastrointestinal/Abdomen Exam: soft, No tenderness, No mass Extremity Exam: normal inspection, normal range of motion Back Exam: normal inspection, normal range of motion, No CVA tenderness, No vertebral tenderness Pelvic Exam: deferred Rectal Exam: deferred OBJECTIVE DATA Vital Signs: Vital Signs - 24 hr Temp Pulse Resp BP Pulse Ox 12/07/20 07:41 99.0 F 94 H 14 114/77 97 12/07/20 04:00 98.4 F 91 H 16 129/87 98 12/06/20 23:45 97.9 F 96 H 14 127/93 98 12/06/20 20:00 98.5 F 96 H 18 106/72 99 12/06/20 16:00 99.3 F 93 H 14 120/86 99 12/06/20 12:00 97 H 18 148/105 99 12/06/20 09:08 97 H 18 148/105 99 12/06/20 08:02 103 H 18 113/91 98 Pain Assessment - Last Documented Pain Intensity 6 Pain Scale Used 0-10 Pain Scale Intake and Output: Intake & Output 12/04/20 12/05/20 12/06/20 12/07/20 11:59 11:59 11:59 11:59 Intake Total 3258 Output Total 900 3750 Balance -900 -492 Weight 46.2 kg Lab Results: Lab Results-Last 24 Hours 12/06/20 12/06/20 12/06/20 Range/Units 08:11 11:23 13:00 WBC (4.0-10.5) K/mm3 RBC (4.1-5.4) M/mm3 Hgb (12.0-16.0) gm/dl Hct (35-47) % MCV (78-100) fl MCH (26-32) pg MCHC (32-36) g/dl RDW (11.5-14.0) % Plt Count (150-450) K/mm3 MPV (7.5-11.0) fl Gran % (36.0-66.0) % Eos # (Auto) (0-0.5) Absolute Lymphs (auto) (1.0-4.6) Absolute Monos (auto) (0.0-1.3) Lymphocytes % (24.0-44.0) % Monocytes % (0.0-12.0) % Eosinophils % (0.00-5.0) % Basophils % (0.0-0.4) % Absolute Granulocytes (1.4-6.9) Basophils # (0-0.4) Sodium (137-145) mmol/L Potassium (3.5-5.1) mmol/L Chloride (98-107) mmol/L Carbon Dioxide (22-30) mmol/L Anion Gap (5-15) MEQ/L BUN (7-17) mg/dL Creatinine (0.52-1.04) mg/dL Estimated GFR ML/MIN Glucose (74-106) mg/dL POC Glucometer 203 H (74 to 106) mg/dL Hemoglobin A1c > 14.00 H (4.5-6.0) % Calcium (8.4-10.2) mg/dL Total Bilirubin (0.2-1.3) mg/dL Direct Bilirubin (0.0-0.4) mg/dL AST (14-36) U/L ALT (0-35) U/L Alkaline Phosphatase (38-126) U/L Serum Total Protein (6.3-8.2) g/dL Albumin (3.5-5.0) g/dL Influenza Type A Ag NEGATIVE (NEGATIVE) Influenza Type B Ag NEGATIVE (NEGATIVE) RSV (PCR) NEGATIVE (Negative) SARS-CoV-2 (PCR) NEGATIVE (NEGATIVE) 12/06/20 12/07/20 12/07/20 Range/Units 16:05 04:00 04:00 WBC 6.2 (4.0-10.5) K/mm3 RBC 3.64 L (4.1-5.4) M/mm3 Hgb 9.8 L (12.0-16.0) gm/dl Hct 31.2 L (35-47) % MCV 85.7 (78-100) fl MCH 26.9 (26-32) pg MCHC 31.4 L (32-36) g/dl RDW 15.2 H (11.5-14.0) % Plt Count 335 (150-450) K/mm3 MPV 9.4 (7.5-11.0) fl Gran % 38.0 (36.0-66.0) % Eos # (Auto) 0.08 (0-0.5) Absolute Lymphs (auto) 3.16 (1.0-4.6) Absolute Monos (auto) 0.55 (0.0-1.3) Lymphocytes % 51.3 H (24.0-44.0) % Monocytes % 8.9 (0.0-12.0) % Eosinophils % 1.3 (0.00-5.0) % Basophils % 0.5 (0.0-0.4) % Absolute Granulocytes 2.34 (1.4-6.9) Basophils # 0.03 (0-0.4) Sodium 125 L (137-145) mmol/L Potassium 3.8 (3.5-5.1) mmol/L Chloride 98 (98-107) mmol/L Carbon Dioxide 27 (22-30) mmol/L Anion Gap 4.3 L (5-15) MEQ/L BUN 5 L (7-17) mg/dL Creatinine 0.41 L (0.52-1.04) mg/dL Estimated GFR > 60.0 ML/MIN Glucose 214 H (74-106) mg/dL POC Glucometer 177 H (74 to 106) mg/dL Hemoglobin A1c (4.5-6.0) % Calcium 8.2 L (8.4-10.2) mg/dL Total Bilirubin 0.20 (0.2-1.3) mg/dL Direct Bilirubin (0.0-0.4) mg/dL AST 18 (14-36) U/L ALT 12 (0-35) U/L Alkaline Phosphatase 120 (38-126) U/L Serum Total Protein 6.0 L (6.3-8.2) g/dL Albumin 3.0 L (3.5-5.0) g/dL Influenza Type A Ag (NEGATIVE) Influenza Type B Ag (NEGATIVE) RSV (PCR) (Negative) SARS-CoV-2 (PCR) (NEGATIVE) 12/07/20 12/07/20 Range/Units 04:00 07:25 WBC (4.0-10.5) K/mm3 RBC (4.1-5.4) M/mm3 Hgb (12.0-16.0) gm/dl Hct (35-47) % MCV (78-100) fl MCH (26-32) pg MCHC (32-36) g/dl RDW (11.5-14.0) % Plt Count (150-450) K/mm3 MPV (7.5-11.0) fl Gran % (36.0-66.0) % Eos # (Auto) (0-0.5) Absolute Lymphs (auto) (1.0-4.6) Absolute Monos (auto) (0.0-1.3) Lymphocytes % (24.0-44.0) % Monocytes % (0.0-12.0) % Eosinophils % (0.00-5.0) % Basophils % (0.0-0.4) % Absolute Granulocytes (1.4-6.9) Basophils # (0-0.4) Sodium (137-145) mmol/L Potassium (3.5-5.1) mmol/L Chloride (98-107) mmol/L Carbon Dioxide (22-30) mmol/L Anion Gap (5-15) MEQ/L BUN (7-17) mg/dL Creatinine (0.52-1.04) mg/dL Estimated GFR ML/MIN Glucose (74-106) mg/dL POC Glucometer 226 H (74 to 106) mg/dL Hemoglobin A1c (4.5-6.0) % Calcium (8.4-10.2) mg/dL Total Bilirubin 0.20 (0.2-1.3) mg/dL Direct Bilirubin 0.2 (0.0-0.4) mg/dL AST 18 (14-36) U/L ALT 13 (0-35) U/L Alkaline Phosphatase 124 (38-126) U/L Serum Total Protein 5.9 L (6.3-8.2) g/dL Albumin 3.0 L (3.5-5.0) g/dL Influenza Type A Ag (NEGATIVE) Influenza Type B Ag (NEGATIVE) RSV (PCR) (Negative) SARS-CoV-2 (PCR) (NEGATIVE) Radiology Exams: Radiology Procedures Category Date Time Status ABDOMEN AND PELVIS W CONTRAST [CT] Stat Exams 12/06/20 07:52 Completed Multi-Disciplinary Progress Notes: Multi-Disciplinary Progress Notes 12/06/20 13:14 Case Management Note by Rosana Rivera RESCHEDULED PT'S APPOINTMENT WITH DR. EL PER PT REQUEST. ADDED APPOINTMENT TO DC INSTRUCTIONS FOR WHEN MD IS READY FOR DISCHARGE. Initialized on 12/06/20 13:14 - END OF NOTE Assessment/Plan (1) Cholelithiasis Current Visit: Yes Status: Acute Qualifiers: Cholelithiasis location: gallbladder Cholecystitis presence: without cholecystitis Assessment & Plan: surgical consult (2) Abdominal pain Current Visit: Yes Status: Acute Qualifiers: Abdominal location: right lower quadrant Qualified Code(s): R10.31 - Right lower quadrant pain Code(s): R10.9 - UNSPECIFIED ABDOMINAL PAIN
[2020-12-07] MEDS: Zofran 4 MG/2 ML VIAL IV PRN ×2 (07:54→17:23)
[2020-12-07] MEDS: Coreg 3.125 MG PO SCH ×2 (09:00→22:07)
[2020-12-07] MEDS: ROCEPHIN 1 Gm-D5w 50 ml Bag** 1 G/50 ML IVPB IV SCH (09:01)
[2020-12-07] MEDS: PROTONIX 40 MG IV IV SCH (09:01)
[2020-12-07] MEDS: Lantus Insulin SQ SCH (18:46)
[2020-12-08] MEDS: Sodium Chloride 0.9% 1000 ML 1,000 ML IV SCH (01:22)
[2020-12-08] MEDS: MORPHINE SULFATE 2 MG INJ IV PRN ×4 (04:00→23:20)
[2020-12-08] MEDS ORDERED: Lactated Ringers 1,000 ML IV SCH (06:00)
[2020-12-08] MEDS ORDERED: MEFOXIN 2 GM PREMIX** 2 GM/50 ML ML IV SCH (07:00)
[2020-12-08] MEDS: Reglan 10 MG/2 ML IV SCH ×3 (07:49→16:47)
--- NOTE | 2020-12-08 08:34 | CONS ---
CONSULT DATE: 12/07/2020 HISTORY: The patient is a 25 year-old female who apparently was here earlier in the day. Yesterday had been in for urinary tract infection and did have a CT that showed cholelithiasis. While I was down here I seen two or three other consults at 1630 hours in the afternoon. I was not notified of the consult on this patient until late last evening. The patient is tolerating p.o. and not having any new increased aches or pains. Consulted the patient that she could have breakfast but then NPO after breakfast if she is not going to be released this a.m. Will plan for cholecystectomy this afternoon. However apparently those orders were not followed and the patient was fed this afternoon. Therefore she is not a candidate for planned cholecystectomy and was canceled for this afternoon keeping the patient in the hospital longer. She apparently had been in [facility] for four day stay for similar problems in the past with some generalized aches and pains with some nausea and vomiting. Reportedly had urinary tract infection. PAST MEDICAL HISTORY: Hypertension, diabetes. PAST SURGICAL HISTORY: Tubal in the past. section. Cyst removed shoulder, back of her head in the past. MEDICATIONS: She has been on: Coreg, Lantus, Humalog. ALLERGIES: NKDA. FAMILY HISTORY: Negative in regards to this problem according to the patient. SOCIAL HISTORY: Denies current smoking. No alcohol abuse. REVIEW OF SYSTEMS: Fourteen systems reviewed pertinent for as noted above. She said that I had done her other procedures in the past. No chest pain or palpitations. She is tolerating her diet today that is a salad lunch tray in front of her now. Otherwise systems negative or noncontributory as above and per preadmission questionnaire. PHYSICAL EXAMINATION: GENERAL: No acute distress. HEENT: Sclera nonicteric. She is wearing glasses. Dentition poor. NECK: No JVD. CHEST: Equal excursion, nonlabored breathing. CVS: Regular rhythm and pulse. ABDOMEN: Soft with some mild vague abdominal tenderness. No rebound. No guarding. No peritoneal sign. She said her aches and pains have been going on the past week. EXTREMITIES: No edema. NEURO: Alert, moving extremities symmetrically. PSYCH: Appropriate mood and affect. LAB DATA AND TESTS: Her liver function test is within normal limits as well as her amylase and lipase. Slight elevation in alkaline phosphatase but otherwise total bilirubin 0.2, AST 18, ALT 13. White count 5.2, hemoglobin 11.4. IMPRESSION: Some abdominal aches and pains. She has cholelithiasis whether this is all related to this or whether she has some variation of enteritis changes or diabetic gastroparesis or other etiology is unclear at this point given her gallstones. I recommend cholecystectomy and I had planned doing this. General risk of bleeding, infection, trocar injury or hernia, risk of bowel, bladder, blood vessel injury, risk of bile leak, bile duct injury, retained stone or sludge possibly requiring further procedure either open or ERCP, general risk of anesthesia, deep vein thrombosis, pulmonary embolism or pneumonia. Perioperative risk of aches, pains, bloating, constipation and/or loose stools possibly chronic in nature, possibility that her gallbladder may not be the only thing causing her symptoms and may fail to improve her symptoms and she may need further work up and/or testing, endoscopy, other studies or procedures. She is agreeable again. I had planned to do this afternoon but unfortunately orders of leaving her NPO after breakfast were not followed. She was fed during the day. She is not a candidate for surgery today. Otherwise will add her for Saturday but I do not know what times are available but Dr. Noriega may try to do it tomorrow.
[2020-12-08] MEDS ORDERED: Lactated Ringers 0 ML IV ONE (09:54)
[2020-12-08] MEDS ORDERED: Sensorcaine 0.25% 10 ML ONE (09:54)
[2020-12-08] MEDS: ROCEPHIN 1 Gm-D5w 50 ml Bag** 1 G/50 ML IVPB IV SCH (10:22)
[2020-12-08] MEDS: Coreg 3.125 MG PO SCH ×2 (10:22→22:40)
[2020-12-08] MEDS: PROTONIX 40 MG IV IV SCH (10:22)
[2020-12-08] MEDS ORDERED: Sodium Chloride 0.9% 1000 ML 1,000 ML ONE (12:43)
[2020-12-08] MEDS ORDERED: DIPRIVAN 200 MG/20 ML IV ONE (12:47)
[2020-12-08] MEDS ORDERED: Zemuron 100 MG/10 ML ONE (12:47)
[2020-12-08] MEDS ORDERED: Versed 2 MG/2 ML Injection ONE (12:47)
[2020-12-08] MEDS ORDERED: SUBLIMAZE 250 MCG/5 ML ONE (12:47)
[2020-12-08] MEDS ORDERED: BRIDION 200MG/2ML IV ONE (13:33)
[2020-12-08] MEDS ORDERED: SUBLIMAZE 100 MCG/2 ML ONE (13:56)
[2020-12-08] MEDS ORDERED: TORAdol 30 mg Injection ONE (13:56)
[2020-12-08] MEDS ORDERED: Zofran 4 MG/2 ML VIAL ONE (13:56)
[2020-12-08] MEDS: Lantus Insulin SQ SCH (18:44)
[2020-12-08] MEDS: HUMALOG SQ PRN (18:48)
[2020-12-08] MEDS: NORCO 5/325 MG PO PRN (20:41)
[2020-12-09 08:03] VITALS: BP 116/80; PULSE 99; O2SAT 99
[2020-12-09] MEDS: Reglan 10 MG/2 ML IV SCH (08:42)
[2020-12-09] MEDS: NORCO 5/325 MG PO PRN (08:43)
--- NOTE | 2020-12-09 10:02 | OP ---
SURGERY DATE/TIME: 12/08/2020 1251 PREOPERATIVE DIAGNOSIS: Symptomatic cholelithiasis. POSTOPERATIVE DIAGNOSIS: Symptomatic cholelithiasis. PROCEDURE: Laparoscopic cholecystectomy. SURGEON: Dr. Sathya Noriega. ANESTHESIA: General endotracheal tube. ESTIMATED BLOOD LOSS: None. COMPLICATIONS: None. CONDITION: Stable. INDICATIONS: A patient with upper abdominal pain, ultrasound positive. Procedure discussed with her and she wished to proceed. DESCRIPTION OF PROCEDURE AND FINDINGS: Taken to surgery. General anesthetic, routine prep and drape. Time out performed. Right upper quadrant Veress needle inserted. Insufflating pressure 14. Four - 5's. Good visualization. Cystic duct defined. Cystic artery defined. Both structures triply clipped and transected. Clips noted across and well approximated. Gallbladder rolled out of gallbladder fossa. Gallbladder delivered through the epigastric port with slight widening. Hole closure device was used. The field was dry. CO2 exsufflated. Ports removed. Skin closed with 4-0 Vicryl and Steri-Strips. The patient tolerated the procedure satisfactorily.
[2020-12-09] MEDS: Coreg 3.125 MG PO SCH (10:09)
[2020-12-09] MEDS: PROTONIX 40 MG IV IV SCH (10:10)
[2020-12-09] MEDS: ROCEPHIN 1 Gm-D5w 50 ml Bag** 1 G/50 ML IVPB IV SCH (10:10)
--- NOTE | 2020-12-09 11:49 | PCM.NOTE ---
Date and Time: 12/08/20 1148 - Review of Systems Constitutional: No Fever, No Chills Eyes: No Symptoms Ears, Nose, & Throat: No Symptoms Respiratory: No Cough, No Short Of Breath Cardiac: No Chest Pain, No Edema, No Syncope Abdominal/Gastrointestinal: No Abdominal Pain, No Nausea, No Vomiting, No Diarrhea Genitourinary Symptoms: No Dysuria Musculoskeletal: No Back Pain, No Neck Pain Skin: No Rash Neurological: No Dizziness, No Focal Weakness, No Sensory Changes Psychological: No Symptoms Endocrine: No Symptoms Hematologic/Lymphatic: No Symptoms Immunological/Allergic: No Symptoms Objective Exam General Appearance: no apparent distress, alert Neurologic Exam: alert, oriented x 3, cooperative, normal mood/affect, nml cerebellar function, sensation nml, No motor deficits Skin Exam: normal color, warm, dry Eye Exam: PERRL, EOMI, eyes nml inspection Ears, Nose, Throat Exam: normal ENT inspection, pharynx normal, moist mucous membranes Neck Exam: normal inspection, non-tender, supple, full range of motion Respiratory Exam: normal breath sounds, lungs clear, No respiratory distress Cardiovascular Exam: regular rate/rhythm, normal heart sounds Gastrointestinal/Abdomen Exam: soft, No tenderness, No mass Extremity Exam: normal inspection, normal range of motion Back Exam: normal inspection, normal range of motion, No CVA tenderness, No vertebral tenderness Pelvic Exam: deferred Rectal Exam: deferred OBJECTIVE DATA Vital Signs: Vital Signs - 24 hr Temp Pulse Resp BP Pulse Ox 12/09/20 08:03 97.9 F 99 H 18 116/80 99 12/09/20 04:24 97.0 F 90 16 127/88 97 12/09/20 00:42 98.6 F 93 H 16 138/87 100 12/08/20 21:00 98.8 F 95 H 18 123/77 100 12/08/20 17:25 97.2 F 97 H 18 118/74 99 12/08/20 15:55 97.7 F 95 H 20 131/85 99 12/08/20 15:25 97.6 F 89 16 141/90 100 12/08/20 15:10 97.4 F 88 18 128/86 100 12/08/20 14:55 97.6 F 92 H 18 131/86 99 12/08/20 14:40 97.1 F 91 H 16 110/77 100 12/08/20 11:51 98.9 F 95 H 18 145/91 98 Pain Assessment - Last Documented Pain Intensity 9 Pain Scale Used 0-10 Pain Scale Intake and Output: Intake & Output 12/06/20 12/07/20 12/08/20 12/09/20 11:59 11:59 11:59 11:59 Intake Total 3378 1440 2560 Output Total 900 6470 1922 1150 Udhkslt -002 -695 -9131 1410 Weight 46.2 kg 46.2 kg Lab Results: Lab Results-Last 24 Hours 12/08/20 12/08/20 12/08/20 Range/Units 16:01 18:43 21:24 POC Glucometer 182 H 300 H 222 H (74 to 106) mg/dL 12/09/20 12/09/20 Range/Units 00:02 07:41 POC Glucometer 187 H 125 H (74 to 106) mg/dL Multi-Disciplinary Progress Notes: Multi-Disciplinary Progress Notes 12/09/20 11:31 Case Management Note by Cira Wright PT INDEPENDENT NO ANTICIPATED NEEDS ON D/C. Initialized on 12/09/20 11:31 - END OF NOTE 12/08/20 12:20 (created 12/08/20 13:01) Case Management Note by Rosana Rivera DR. ROUNDED AND EVALUATED, DISCUSSED LAP FLOR. ALL QUESTIONS ANSWERED. PT ABLE TO REPEAT INFORMATION. DENIES ADDNL NEEDS AT THIS TIME. GOING TO SURGERY TODAY. Initialized on 12/08/20 13:01 - END OF NOTE Assessment/Plan (1) Cholelithiasis Status: Acute Qualifiers: Cholelithiasis location: gallbladder Cholecystitis presence: without cholecystitis Assessment & Plan: s/p cholecystectomy (2) Abdominal pain Status: Acute Qualifiers: Abdominal location: right lower quadrant Qualified Code(s): R10.31 - Right lower quadrant pain Code(s): R10.9 - UNSPECIFIED ABDOMINAL PAIN
--- NOTE | 2020-12-09 11:53 | PCM.DS ---
Discharge Summary Date of Admission: 12/06/20 10:43 Admitting Physician: RIAN SILVERIO Consults: Consults on Case 12/06/20 20:57 Consult Surgery ROUTINE 12/07/20 10:25 Consult Surgery ROUTINE Primary Care Provider: PATRICIA LACKEY Allergies Allergies No Known Drug Allergies Allergy (Verified 12/06/20 05:59) Hospital Summary - Hospital Course Hospital Course: Chief Complaint Diagnosis intractable nausea and vomiting for 3-4 days Allergies Allergy/AdvReac Type Severity Reaction Status Date / Time No Known Drug Allergies Allergy Verified 12/06/20 05:59 Vital Signs (Last 24 hours) Temp Pulse Resp BP Pulse Ox 12/09/20 08:03 97.9 F 99 H 18 116/80 99 12/09/20 04:24 97.0 F 90 16 127/88 97 12/09/20 00:42 98.6 F 93 H 16 138/87 100 12/08/20 21:00 98.8 F 95 H 18 123/77 100 12/08/20 17:25 97.2 F 97 H 18 118/74 99 12/08/20 15:55 97.7 F 95 H 20 131/85 99 12/08/20 15:25 97.6 F 89 16 141/90 100 12/08/20 15:10 97.4 F 88 18 128/86 100 12/08/20 14:55 97.6 F 92 H 18 131/86 99 12/08/20 14:40 97.1 F 91 H 16 110/77 100 12/08/20 11:51 98.9 F 95 H 18 145/91 98 Home Medications Medication Instructions Recorded Confirmed Last Taken Type Carvedilol 3.125 mg [Coreg 3.125 mg PO BID 12/06/20 12/06/20 12/05/20 History 3.125 MG] Insulin Glargine,Hum.rec.anlog 38 unit SQ DAILY 12/06/20 12/06/20 12/05/20 07:00 History [Lantus] Insulin Lispro [Humalog Kwikpen 1 unit SQ TID PRN PRN 12/06/20 12/06/20 12/05/20 19:00 History U-100] Hydrocodone/Acetaminophen 1 tab PO Q4HPRN PRN #20 tablet MDD 12/08/20 Unknown Rx [Hydrocodone-Acetamin 5-325 mg] 6 Current Medications Discontinued Medications Generic Name Dose Route Start Last Admin Trade Name Freq PRN Reason Stop Dose Admin Hydrocodone Bitart/Acetaminophen 1 tab 12/08/20 12:59 12/09/20 08:43 [place] 5/325 Mg PO 12/13/20 12:58 1 tab Q4H PRN PRN Administration PAIN Bupivacaine HCl Confirm 12/08/20 09:54 Sensorcaine 0.25% 10 Ml Administered 12/08/20 09:55 Dose 10 ml .ROUTE .STK-MED ONE Carvedilol 3.125 mg 12/06/20 12:00 12/09/20 10:09 Coreg 3.125 Mg PO 01/05/21 11:59 3.125 mg BID MADELIN Administration Fentanyl Citrate Confirm 12/08/20 12:47 Sublimaze 250 Mcg/5 Ml Administered 12/08/20 12:48 Dose 250 mcg .ROUTE .STK-MED ONE Fentanyl Citrate Confirm 12/08/20 13:56 Sublimaze 100 Mcg/2 Ml Administered 12/08/20 13:57 Dose 100 mcg .ROUTE .STK-MED ONE Sodium Chloride 1,000 mls @ 999 mls/hr 12/06/20 06:40 12/06/20 08:11 Sodium Chloride 0.9% 1000 Ml IV 12/06/20 07:40 Infused .Q1H1M STA Infusion Sodium Chloride Confirm 12/06/20 06:52 Sodium Chloride 0.9% 1000 Ml Administered 12/06/20 06:53 Dose 1,000 mls @ ud .ROUTE .STK-MED ONE Ceftriaxone Sodium/Dextrose 1 g in 50 mls @ 100 mls/hr 12/06/20 07:46 12/06/20 08:49 Rocephin 1 Gm-D5w 50 Ml Bag IV 12/06/20 08:15 Infused STAT STA Infusion Ceftriaxone Sodium/Dextrose Confirm 12/06/20 07:54 Rocephin 1 Gm-D5w 50 Ml Bag Administered 12/06/20 07:55 Dose 1 g in 50 mls @ ud IV .STK-MED ONE Sodium Chloride 1,000 mls @ 100 mls/hr 12/06/20 10:49 12/08/20 01:22 Sodium Chloride 0.9% 1000 Ml IV 01/05/21 10:48 100 mls/hr .Q10H MADELIN Administration Ceftriaxone Sodium/Dextrose 1 g in 50 mls @ 100 mls/hr 12/06/20 10:49 12/09/20 10:10 Rocephin 1 Gm-D5w 50 Ml Bag IV 12/10/20 10:48 Not Given Q24H10 MADELIN Lactated Ringer's 1,000 mls @ 50 mls/hr 12/08/20 06:00 12/08/20 06:11 Lactated Ringers IV 01/07/21 05:59 50 mls/hr .Q20H MADELIN Administration Cefoxitin Sodium 2 gm in 50 mls @ 100 mls/hr 12/08/20 07:00 12/08/20 08:13 Mefoxin 2 Gm Premix IV 01/07/21 06:59 100 mls/hr ONCALLTOOR MADELIN Administration Lactated Ringer's Confirm 12/08/20 09:54 Lactated Ringers Administered 12/08/20 09:55 Dose 1,000 mls @ ud IV .STK-MED ONE Sodium Chloride Confirm 12/08/20 12:43 Sodium Chloride 0.9% 1000 Ml Administered 12/08/20 12:44 Dose 1,000 mls @ ud .ROUTE .STK-MED ONE Insulin Glargine 38 unit 12/07/20 19:00 12/08/20 18:44 Lantus Insulin SQ 01/06/21 18:59 38 unit QPM@1900 MADELIN Administration Insulin Human Lispro 0 unit 12/06/20 11:13 12/08/20 18:48 Humalog SQ 01/05/21 11:12 4 unit UD PRN Administration HYPERGLYCEMIA Ketorolac Tromethamine Confirm 12/08/20 13:56 Toradol 30 Mg Injection Administered 12/08/20 13:57 Dose 30 mg .ROUTE .STK-MED ONE Metoclopramide HCl 5 mg 12/06/20 13:15 12/07/20 13:01 Reglan 10 Mg/2 Ml IV 01/05/21 13:14 Not Given Q6HT MADELIN Metoclopramide HCl 5 mg 12/07/20 16:30 12/09/20 08:42 Reglan 10 Mg/2 Ml IV 01/06/21 16:29 5 mg AC MADELIN Administration Midazolam HCl Confirm 12/08/20 12:47 Versed 2 Mg/2 Ml Injection Administered 12/08/20 12:48 Dose 2 mg .ROUTE .STK-MED ONE Morphine Sulfate 2 mg 12/06/20 10:49 12/08/20 08:13 Morphine Sulfate 2 Mg Inj IV 12/11/20 10:48 2 mg Q4H PRN PRN Administration PAIN Morphine Sulfate 2 mg 12/08/20 14:52 12/08/20 23:20 Morphine Sulfate 2 Mg Inj IV 12/13/20 14:51 2 mg Q1H PRN PRN Administration PAIN Ondansetron HCl 4 mg 12/06/20 06:41 12/06/20 06:55 Zofran 4 Mg/2 Ml Vial IV 12/06/20 06:42 4 mg STAT ONE Administration Ondansetron HCl Confirm 12/06/20 06:52 Zofran 4 Mg/2 Ml Vial Administered 12/06/20 06:53 Dose 4 mg .ROUTE .STK-MED ONE Ondansetron HCl 4 mg 12/06/20 10:49 12/07/20 17:23 Zofran 4 Mg/2 Ml Vial IV 01/05/21 10:48 4 mg Q6H PRN PRN Administration NAUSEA/VOMITING Ondansetron HCl Confirm 12/08/20 13:56 Zofran 4 Mg/2 Ml Vial Administered 12/08/20 13:57 Dose 4 mg .ROUTE .STK-MED ONE Pantoprazole Sodium 40 mg 12/06/20 14:00 12/09/20 10:10 Protonix 40 Mg Iv IV 01/05/21 13:59 Not Given Q24H10 MADELIN Propofol Confirm 12/08/20 12:47 Diprivan 200 Mg/20 Ml Administered 12/08/20 12:48 Dose 200 mg IV .STK-MED ONE Rocuronium Humphreys Confirm 12/08/20 12:47 Zemuron 100 Mg/10 Ml Administered 12/08/20 12:48 Dose 50 mg .ROUTE .STK-MED ONE Sugammadex Sodium Confirm 12/08/20 13:33 Bridion 200mg/2ml Administered 12/08/20 13:34 Dose 200 mg IV .STK-MED ONE Intake & Output (Last 24 hours) 12/06/20 12/07/20 12/08/20 12/09/20 11:59 11:59 11:59 11:59 Intake Total 3378 1440 2560 Output Total 900 2450 8468 1150 Balance -146 -507 -4324 1410 Weight 46.2 kg 46.2 kg Microbiology Results (Last 24 hours) 12/06/20 06:59 Clean Catch Midstream Urine Culture - Final <10K NORMAL SKIN NAHUM PROBABLE SKIN CONTAMINANT Laboratory Results (Last 24 hours) 12/09/20 12/09/20 12/08/20 07:41 00:02 21:24 POC Glucometer 125 H 187 H 222 H 12/08/20 12/08/20 18:43 16:01 POC Glucometer 300 H 182 H Orders (Last 24 hours) Category Date Time Status Up With Assistance ROUTINE Activity 12/08/20 15:13 Active Saline Lock ROUTINE Care 12/08/20 15:13 Active Vital Signs Q4H Care 12/08/20 15:13 Active House Regular Diet Diet 12/08/20 Dinner Completed Discharge Routine Discharge 12/09/20 Ordered Discharge/Telephone Order Routine Discharge 12/09/20 Active POCT GLUCOSE Stat Lab 12/08/20 11:19 Completed POCT GLUCOSE Stat Lab 12/08/20 16:01 Completed POCT GLUCOSE Stat Lab 12/08/20 18:43 Completed POCT GLUCOSE Stat Lab 12/08/20 21:24 Completed POCT GLUCOSE Stat Lab 12/09/20 00:02 Completed POCT GLUCOSE Stat Lab 12/09/20 07:41 Completed Surgical Pathology Routine Lab 12/08/20 13:28 Received Fentanyl Citrate 100 Mcg/2 ml* [Sublimaze 100 Mcg/2 ml* Med 12/08/20 13:56 Discontinued ] 100 mcg .ROUTE .STK-MED ONE Fentanyl Citrate 250 Mcg/5 ml* [Sublimaze 250 Mcg/5 ml* Med 12/08/20 12:47 Discontinued ] 250 mcg .ROUTE .STK-MED ONE Hydrocodone/APAP 5/325 [[place] 5/325 mg] Med 12/08/20 12:59 Discontinued 1 tab PO Q4H PRN PRN KETOROLAC trometh 30 mg Inj [TORAdol 30 mg Injection Med 12/08/20 13:56 Discontinued ] 30 mg .ROUTE .STK-MED ONE Midazolam HCl 2 mg/2 ml [Versed 2 MG/2 ML Injection* Med 12/08/20 12:47 Discontinued ] 2 mg .ROUTE .STK-MED ONE Morphine Sulfate 2 mg Inj Med 12/08/20 14:52 Discontinued 2 mg IV Q1H PRN PRN NaCl 0.9% 1000 ml [Sodium Chloride 0.9% 1000 ML] 1,000 Med 12/08/20 12:43 Discontinued ml .ROUTE UD Ondansetron HCl 4 mg/2 ml [Zofran 4 MG/2 ML VIAL] Med 12/08/20 13:56 Discontinued 4 mg .ROUTE .STK-MED ONE Propofol 200 mg/20 ml [Diprivan 200 mg/20 ml] Med 12/08/20 12:47 Discontinued 200 mg IV .STK-MED ONE Rocuronium Humphreys 100 mg/10Ml [Zemuron 100 MG/10 ML] Med 12/08/20 12:47 Discontinued 50 mg .ROUTE .STK-MED ONE Sugammadex Sodium [[place] 200Mg/2Ml] Med 12/08/20 13:33 Discontinued 200 mg IV .STK-MED ONE Patient Care Notes (Last 24 hours) 12/09/20 11:31 Case Management Note by Cira Wright PT INDEPENDENT NO ANTICIPATED NEEDS ON D/C. Initialized on 12/09/20 11:31 - END OF NOTE 12/08/20 12:20 (created 12/08/20 13:01) Case Management Note by Rosana Rivera DR. ROUNDED AND EVALUATED, DISCUSSED LAP FLOR. ALL QUESTIONS ANSWERED. PT ABLE TO REPEAT INFORMATION. DENIES ADDNL NEEDS AT THIS TIME. GOING TO SURGERY TODAY. Initialized on 12/08/20 13:01 - END OF NOTE - Vitals & Intake/Output Vital Signs: Vital Signs Temperature 97.9 F 12/09/20 08:03 Pulse Rate 99 H 12/09/20 08:03 Respiratory Rate 18 12/09/20 08:03 Blood Pressure 116/80 12/09/20 08:03 O2 Sat by Pulse Oximetry 99 12/09/20 08:03 Intake & Output: Intake & Output 12/06/20 12/07/20 12/08/20 12/09/20 11:59 11:59 11:59 11:59 Intake Total 6767 5133 2560 Output Total 091 6061 5863 0575 Balance -058 -592 -6435 141 Weight 46.2 kg 46.2 kg - Lab Result Diagrams: 12/07/20 04:00 12/07/20 04:00 Lab Results-Last 24 Hrs: Lab Results-Last 24 Hours 12/08/20 12/08/20 12/08/20 Range/Units 16:01 18:43 21:24 POC Glucometer 182 H 300 H 222 H (74 to 106) mg/dL 12/09/20 12/09/20 Range/Units 00:02 07:41 POC Glucometer 187 H 125 H (74 to 106) mg/dL Micro Results-Entire Visit: Microbiology 12/06/20 06:59 Urine Culture - Final Clean Catch Midstream <10K NORMAL SKIN NAHUM PROBABLE SKIN CONTAMINANT Accuchecks Date 12/09/20 Date 12/08/20 Time 07:41 Final Diagnosis/Problem List - Final Discharge Diagnosis/Problem (1) Cholelithiasis Status: Acute Assessment & Plan: s/p cholecystectomy (2) Abdominal pain Status: Acute Code(s): R10.9 - UNSPECIFIED ABDOMINAL PAIN (3) Type 1 diabetes mellitus Status: Acute - Discharge Discharge Date: 12/09/20 Disposition: Home, Self-Care Condition: Stable Prescriptions: New Hydrocodone/Acetaminophen [Hydrocodone-Acetamin 5-325 mg] 1 tab PO Q4HPRN PRN #20 tablet MDD 6 PRN Reason: Pain Continue Insulin Lispro [Humalog Kwikpen U-100] 1 unit SQ TID PRN PRN PRN Reason: Hyperglycemia Insulin Glargine,Hum.rec.anlog [Lantus] 38 unit SQ DAILY Carvedilol 3.125 mg [Coreg 3.125 MG] 3.125 mg PO BID Instructions: Cholecystectomy (DC) Additional Instructions: HERE IS A WEBSITE YOU CAN USE FOR ADDITIONAL ASSISTANCE WITH ANY NEEDS SUCH HOUSING [email or web address] HERE IS ALSO THE NUMBER FOR [facility]- [phone] Follow up with: KADEN SOLIMAN [ACTIVE STAFF] - 12/22/20 2:25 pm (DR Cailin SOLIMAN APPOINTMENT IN [place] AT [facility]) NESSA EL [NON-STAFF PHY W/O PRIVILEGES] - 12/14/20 10:15 am RIAN SILVERIO MD [ACTIVE STAFF] - 12/22/20 10:45 am (DR SILVERIO APPOINTMENT AT [facility]) Forms: Discharge Instructions
== END 2020-12-09 11:20 | disposition home or self-care (01) ==
LOC: ED 05:33 → MED SURG 10:43
PROVIDERS: ADMIT General Practice; ATTEND General Practice
DX: K80.20 Calculus of gallbladder without cholecystitis without obstruction (principal); R11.2 Nausea with vomiting, unspecified; I10 Essential (primary) hypertension; E10.9 Type 1 diabetes mellitus without complications; Z79.899 Other long term (current) drug therapy; Z79.4 Long term (current) use of insulin; Z20.828 Contact with and (suspected) exposure to other viral communicable diseases
CPT/HCPCS: 0241U; 36000; 36415; 47562; 51702; 74177; 80053; 80076; 80307; 81001; 81025; 82150; 82947; 83036; 83690; 85025; 87086; 96360; 96365; 96374; 99284; G0378; J0694; J0696; J1817; J1885; J2250; J2270; J2405; J2704; J3010; A9270-GY

== ENCOUNTER 2021-01-02 11:31 | Observation (INO) | payer BC ==
[2021-01-02] MEDS ORDERED: Sodium Chloride 0.9% 1000 ML 1,000 ML IV STA ×2 (11:38→17:20)
[2021-01-02] MEDS ORDERED: Sodium Chloride 0.9% 1000 ML 1,000 ML ONE ×2 (11:44→17:23)
[2021-01-02 11:46] LABS: Absolute Neutrophil Ct (ANC) 6.74 (1.4-6.9); BASOPHIL % 0.5 % (0.0-0.4); Basophil (Absolute #) 0.06 (0-0.4); Eosinophil % 0.3 % (0.00-5.0); Eosinophil (Absolute #) 0.04 (0-0.5); Hematocrit 37.1 % (35-47); Hemoglobin 11.1 gm/dl (12.0-16.0); Lymphocytes % 35.2 % (24.0-44.0); Mean Cell Volume 84.7 fl (78-100); Mean Corpuscular Hemoglobin 25.3 pg (26-32); Mean Corpuscular Hgb Concent. 29.9 g/dl (32-36); Mean Platelet Volume 10.6 fl (7.5-11.0); Monocytes % 7.5 % (0.0-12.0); Neutrophil % 56.5 % (36.0-66.0); Platelet Count 543 K/mm3 (150-450); Red Blood Count 4.38 M/mm3 (4.1-5.4); Red Cell Distribution Width 15.3 % (11.5-14.0); White Blood Count 11.9 K/mm3 (4.0-10.5)
--- NOTE | 2021-01-02 11:55 | ERPHSYRPT ---
- History of Present Illness Time Seen by Provider: 01/02/21 11:45 Source: patient Exam Limitations: no limitations Patient Subjective Stated Complaint: Pt states that she is in DKA, SOB, lethargic Triage Nursing Assessment: Pt brought to the ER by her step mother, tachycardic, pain in lower back, BS over 600, rates pain 10/10, last dose of Humalog at 0600 and gave 18.5 units, N&V, pale, pt was having labor breaths upon arrival but now appears to be breathing more comfortable Physician History: Patient is a 25-year-old female with a history of type 1 diabetes presents to our ED with complaints of persistent hyperglycemia over the past couple days nausea vomiting and feeling weak. The nausea vomiting and weakness started yesterday. Symptoms progressed into today. Patient believes she is in DKA. Upon arrival patient was mildly tachypneic. Patient also complains of back pain. Positive history of urinary tract infection. Symptoms today are similar. Patient provided herself a dose of Humalog at 6:00 this morning. Dose was 18.4 units. Patient denies fever. No trauma No chest pain. Symptoms are pro gressive. Symptoms are moderate in intensity. No specific worsening improving factors. Patient voices no other complaints or concerns at this time. Timing/Duration: yesterday Severity: moderate Modifying Factors: Improves With: nothing Associated Symptoms: nausea, vomiting, No chest pain, No fever Allergies/Adverse Reactions: No Known Drug Allergies Allergy (Verified 01/02/21 11:42) Home Medications: Carvedilol 3.125 mg [Coreg 3.125 MG] 3.125 mg PO BID 12/06/20 [History] Insulin Glargine,Hum.rec.anlog [Lantus] 45 unit SQ DAILY 12/06/20 [History] Insulin Lispro [Humalog Kwikpen U-100] 1 unit SQ TID PRN PRN 12/06/20 [History] Hx Tetanus, Diphtheria Vaccination/Date Given: Yes Hx Influenza Vaccination/Date Given: No Hx Pneumococcal Vaccination/Date Given: No Travel Risk - International Travel Have you traveled outside of the country in past 3 weeks: No - Coronavirus Screening Are you exhibiting any of the following symptoms?: No Close contact with a COVID-19 positive Pt in past 14-21 Days: No - Vaccine Status Have you recieved a Covid-19 vaccination: No - Review of Systems Constitutional: No Symptoms Eyes: No Symptoms Ears, Nose, & Throat: No Symptoms Respiratory: No Symptoms Cardiac: No Symptoms Abdominal/Gastrointestinal: No Symptoms Genitourinary Symptoms: No Symptoms Musculoskeletal: No Symptoms Skin: No Symptoms Neurological: No Symptoms Psychological: No Symptoms Endocrine: No Symptoms Hematologic/Lymphatic: No Symptoms Immunological/Allergic: No Symptoms - Past Medical History Pertinent Past Medical History: Yes Cardiac History: Hypertension Endocrine Medical History: Diabetes Type I - Past Surgical History Past Surgical History: Yes Gastrointestinal: Cholecystectomy Female Surgical History: Section, Tubal Ligation Other Surgical History: cyst removed from shoulder and back of head. - Social History Smoking Status: Never smoker Exposure to second hand smoke: Yes Drug Use: none Patient Lives Alone: No Significant Family History: no pertinent family hx - Female History Hx Now: No (tubal) - Nursing Vital Signs Nursing Vital Signs: Initial Vital Signs Temperature 98.0 F 01/02/21 11:31 Pulse Rate 116 H 01/02/21 11:31 Respiratory Rate 24 01/02/21 11:31 Blood Pressure 128/91 01/02/21 11:31 O2 Sat by Pulse Oximetry 99 01/02/21 11:31 Pain Scale Pain Intensity 6 - Physical Exam General Appearance: mild distress (Nausea and vomiting.), alert Eye Exam: PERRL/EOMI, eyes nml inspection Ears, Nose, Throat Exam: normal ENT inspection, TMs normal, pharynx normal, naf[address] st mucous membranes Neck Exam: normal inspection, non-tender, supple, full range of motion Respiratory Exam: normal breath sounds, lungs clear, No respiratory distress Cardiovascular Exam: regular rate/rhythm, normal heart sounds, normal peripheral pulses Gastrointestinal/Abdomen Exam: soft, normal bowel sounds, No tenderness, No mass Back Exam: normal inspection, normal range of motion, No CVA tenderness, No vertebral tenderness Extremity Exam: normal inspection, normal range of motion, pelvis stable Neurologic Exam: alert, oriented x 3, cooperative, normal mood/affect, nml cerebellar function, nml station & gait, sensation nml, No motor deficits Skin Exam: normal color, warm, dry, No rash Lymphatic Exam: No adenopathy SpO2 Interpretation: normal SpO2: 100 O2 Delivery: Room Air - Course Nursing assessment & vital signs reviewed: Yes EKG Interpreted by Me: RATE, Sinus Tach, NORMAL AXIS, NORMAL INTERVALS (sinus tachycardia, 110) - CT Exams Abdomen/Pelvis CT Interpretation: Tele-radiologist Report (CT abdomen pelvis shows diffuse respiratory artifact. Status post cholecystectomy. New fluid distended stomach and small bowel loops with fluid leveling, ileus versus partial distal small bowel obstruction.) Ordered Tests: Active Orders 24 hr Category Date Time Status Bedrest ROUTINE Activity 01/02/21 16:05 Active Bedrest with BRP/BSC ROUTINE Activity 01/02/21 16:05 Active Health Education Director STAT Care 01/02/21 11:40 Completed Code Status Order ROUTINE Care 01/02/21 16:05 Active Code Status Order ROUTINE Care 01/02/21 16:05 Completed EKG-ER Only STAT Care 01/02/21 11:39 Completed IV Care Q6H Care 01/02/21 16:05 Active IV Care Q6H Care 01/02/21 16:05 Completed IV Insertion STAT Care 01/02/21 11:38 Completed Neuro Checks Q4H Care 01/02/21 16:[address] in Observation ROUTINE Care 01/02/21 16:05 Active Pulse Oximetry (ED) STAT Care 01/02/21 11:39 Completed Telemetry q6h Care 01/02/21 16:05 Active Consistent Carbohydrate Diet 1800 Calorie Diet 01/02/21 Dinner Completed ABDOMEN AND PELVIS W/0 CONTRAS [CT] Stat Exams 01/02/21 15:03 Completed CBC W DIFF AM.LAB Lab 01/03/21 04:00 Ordered CBC W DIFF Stat Lab 01/02/21 11:43 Completed CMP AM.LAB Lab 01/03/21 04:00 Ordered CMP Stat Lab 01/02/21 11:43 Completed CULTURE,URINE Stat Lab 01/02/21 11:53 Received HCG,QUALITATIVE URINE Stat Lab 01/02/21 11:53 Completed LIPASE Stat Lab 01/02/21 11:43 Completed Lactic Acid Stat Lab 01/02/21 11:38 Completed Lactic Acid Stat Lab 01/02/21 14:41 Completed TROPONIN Q3H Lab 01/02/21 11:43 Completed TROPONIN Q3H Lab 01/02/21 14:35 Completed TROPONIN Q3H Lab 01/02/21 17:51 Completed TROPONIN Q3H Lab 01/02/21 20:45 Ordered TROPONIN Q3H Lab 01/02/21 23:45 Ordered UA W/RFX UR CULTURE Stat Lab 01/02/21 11:53 Completed VBG [VENOUS BLOOD GAS] Stat Lab 01/02/21 12:43 Completed Transfer Order Routine Transfer 01/02/21 Completed Medication Summary Generic Name Dose Route Start Last Admin Trade Name Hang PRN Reason Stop Dose Admin Insulin Human Regular 100 unit 100 mls @ 4.808 mls/hr 01/02/21 13:08 01/02/21 18:22 / Sodium Chloride IV 02/01/21 13:07 0.04 unit/kg/hr .[id number] PRN 2 mls/hr DKA/HYPERGLYCEMIA Titration Protocol 0.1 UNIT/KG/HR Ceftriaxone Sodium/Dextrose 1 g in 50 mls @ 100 mls/hr 01/03/21 10:00 Rocephin 1 Gm-D5w 50 Ml Bag IV 01/06/21 09:59 Q24H10 MADELIN Sodium Chloride 1,000 mls @ 150 mls/hr 01/02/21 18:30 Sodium Chloride 0.9% 1000 Ml IV 02/01/21 18:29 .Q6H40M MADELIN Piperacillin Sod/Tazobactam 100 mls @ 200 mls/hr 01/02/21 17:37 01/02/21 18:22 Sod 3.375 gm/ Sodium Chloride IV 01/05/21 17:36 200 mls/hr Q6HT MADELIN Administration Morphine Sulfate 4 mg 01/02/21 16:05 Morphine Sulfate 4 Mg Inj IV 01/07/21 16:04 Q4H PRN PRN PAIN Non-Formulary Medication 1 each 01/02/21 17:36 Pharmacy Dosing Required: Vancomycin IV 01/02/21 17:37 STAT STA Ondansetron HCl 4 mg 01/02/21 16:05 Zofran 4 Mg/2 Ml Vial IV 02/01/21 16:04 Q6H PRN PRN NAUSEA/VOMITING Discontinued Medications Generic Name Dose Route Start Last Admin Trade Name Hang PRN Reason Stop Dose Admin Sodium Chloride 1,000 mls @ 999 mls/hr 01/02/21 11:38 01/02/21 13:28 Sodium Chloride 0.9% 1000 Ml IV 01/02/21 12:38 Infused .Q1H1M STA Infusion Sodium Chloride Confirm 01/02/21 11:44 Sodium Chloride 0.9% 1000 Ml Administered 01/02/21 11:45 Dose 1,000 mls @ ud .ROUTE .STK-MED ONE Lactated Ringer's 1,000 mls @ 120 mls/hr 01/02/21 13:30 01/02/21 13:11 Lactated Ringers IV 02/01/21 13:29 120 mls/hr .Q8H20M MADELIN Administration Ceftriaxone Sodium/Dextrose 1 g in 50 mls @ 100 mls/hr 01/02/21 13:18 01/02/21 15:22 Rocephin 1 Gm-D5w 50 Ml Bag IV 01/02/21 13:47 Infused STAT STA Infusion Ceftriaxone Sodium/Dextrose Confirm 01/02/21 13:52 Rocephin 1 Gm-D5w 50 Ml Bag Administered 01/02/21 13:53 Dose 1 g in 50 mls @ ud IV .STK-MED ONE Sodium Chloride 1,000 mls @ 999 mls/hr 01/02/21 17:20 01/02/21 17:24 Sodium Chloride 0.9% 1000 Ml IV 01/02/21 18:20 999 mls/hr .Q1H1M STA Administration Sodium Chloride Confirm 01/02/21 17:23 Sodium Chloride 0.9% 1000 Ml Administered 01/02/21 17:24 Dose 1,000 mls @ ud .ROUTE .STK-MED ONE Sodium Chloride Confirm 01/02/21 17:50 Sodium Chloride 0.9% 100 Ml Bag Administered 01/02/21 17:51 Dose 100 mls @ ud .ROUTE .STK-MED ONE Morphine Sulfate 4 mg 01/02/21 12:51 01/02/21 13:11 Morphine Sulfate 4 Mg Inj IV 01/02/21 12:52 4 mg STAT ONE Administration Morphine Sulfate Confirm 01/02/21 13:09 Morphine Sulfate 4 Mg Inj Administered 01/02/21 13:10 Dose 4 mg .ROUTE .STK-MED ONE Ondansetron HCl 4 mg 01/02/21 12:02 01/02/21 13:10 Zofran 4 Mg/2 Ml Vial IV 01/02/21 12:03 4 mg STAT ONE Administration Ondansetron HCl Confirm 01/02/21 12:04 Zofran 4 Mg/2 Ml Vial Administered 01/02/21 12:05 Dose 4 mg .ROUTE .STK-MED ONE Ondansetron HCl Confirm 01/02/21 13:09 Zofran 4 Mg/2 Ml Vial Administered 01/02/21 13:10 Dose 4 mg .ROUTE .STK-MED ONE Piperacillin Sod/Tazobactam Sod Confirm 01/02/21 17:42 Zosyn 3.375 Gm Vial Administered 01/02/21 17:43 Dose 3.375 gm IV .STK-MED ONE Prochlorperazine Edisylate 10 mg 01/02/21 14:51 01/02/21 14:56 Compazine 10 Mg/2 Ml IV 01/02/21 14:52 10 mg STAT ONE Administration Prochlorperazine Edisylate Confirm 01/02/21 14:52 Compazine 10 Mg/2 Ml Administered 01/02/21 14:53 Dose 10 mg .ROUTE .STK-MED ONE Lab/Rad Data: Laboratory Result Diagrams 01/02/21 11:43 01/02/21 11:43 Laboratory Results 01/02/21 01/02/21 01/02/21 Range/Units 14:41 14:35 13:48 WBC (4.0-10.5) K/mm3 RBC (4.1-5.4) M/mm3 Hgb (12.0-16.0) gm/dl Hct (35-47) % MCV (78-100) fl MCH (26-32) pg MCHC (32-36) g/dl RDW (11.5-14.0) % Plt Count (150-450) K/mm3 MPV (7.5-11.0) fl Gran % (36.0-66.0) % Eos # (Auto) (0-0.5) Absolute Lymphs (auto) (1.0-4.6) Absolute Monos (auto) (0.0-1.3) Lymphocytes % (24.0-44.0) % Monocytes % (0.0-12.0) % Eosinophils % (0.00-5.0) % Basophils % (0.0-0.4) % Absolute Granulocytes (1.4-6.9) Basophils # (0-0.4) pO2/FiO2 Ratio % VBG pH (7.32-7.42) VBG pCO2 at Pat Temp (42-55) mm/Hg VBG pO2 at Pat Temp (25-40) mm/Hg VBG HCO3 (22-28) meq/L VBG O2 Sat ([place]) (95-100) VBG Base Excess (-2.0-2.0) VBG Hemoglobin VBG Carboxyhemoglobin (0.0-6.9) % T HGB POC Potassium (3.5-5.1) Sodium (137-145) mmol/L Potassium (3.5-5.1) mmol/L Chloride (98-107) mmol/L Carbon Dioxide (22-30) mmol/L Anion Gap (5-15) MEQ/L BUN (7-17) mg/dL Creatinine (0.52-1.04) mg/dL Estimated GFR ML/MIN Glucose (74-106) mg/dL Lactic Acid 3.0 H (0.4-2.0) Calcium (8.4-10.2) mg/dL Total Bilirubin (0.2-1.3) mg/dL AST (14-36) U/L ALT (0-35) U/L Alkaline Phosphatase (38-126) U/L Troponin I < 0.012 (0.000-0.034) ng/mL Serum Total Protein (6.3-8.2) g/dL Albumin (3.5-5.0) g/dL Lipase (23-300) U/L Urine Color (YELLOW) Urine Appearance (CLEAR) Urine pH (5-6) Ur Specific [place] (1.005-1.025) Urine Protein (Negative) Urine Ketones (NEGATIVE) Urine Blood (0-5) Patrick/ul Urine Nitrite (NEGATIVE) Urine Bilirubin (NEGATIVE) Urine Urobilinogen (0-1) mg/dL Ur Leukocyte Esterase (NEGATIVE) Urine WBC (Auto) (0-5) /HPF Urine RBC (Auto) (0-2) /HPF U Epithel Cells (Auto) (FEW) /HPF Urine Bacteria (Auto) (NEGATIVE) /HPF Urine Mucus (Auto) (NEGATIVE) /HPF U Trichomonas (Auto) (NEGATIVE) /HPF Urine Culture Reflexed (NO) Urine Glucose (NEGATIVE) mg/dL Urine HCG, Qual (Negative) Influenza Type A Ag NEGATIVE (NEGATIVE) Influenza Type B Ag NEGATIVE (NEGATIVE) RSV (PCR) NEGATIVE (Negative) SARS-CoV-2 (PCR) NEGATIVE (NEGATIVE) 01/02/21 01/02/21 01/02/21 Range/Units 12:43 11:53 11:53 WBC (4.0-10.5) K/mm3 RBC (4.1-5.4) M/mm3 Hgb (12.0-16.0) gm/dl Hct (35-47) % MCV (78-100) fl MCH (26-32) pg MCHC (32-36) g/dl RDW (11.5-14.0) % Plt Count (150-450) K/mm3 MPV (7.5-11.0) fl Gran % (36.0-66.0) % Eos # (Auto) (0-0.5) Absolute Lymphs (auto) (1.0-4.6) Absolute Monos (auto) (0.0-1.3) Lymphocytes % (24.0-44.0) % Monocytes % (0.0-12.0) % Eosinophils % (0.00-5.0) % Basophils % (0.0-0.4) % Absolute Granulocytes (1.4-6.9) Basophils # (0-0.4) pO2/FiO2 Ratio 21.0 % VBG pH 7.22 L* (7.32-7.42) VBG pCO2 at Pat Temp 13 L* (42-55) mm/Hg VBG pO2 at Pat Temp 125 H (25-40) mm/Hg VBG HCO3 5.3 L* (22-28) meq/L VBG O2 Sat ([place]) 99.6 (95-100) VBG Base Excess -19.7 L (-2.0-2.0) VBG Hemoglobin 11.0 VBG Carboxyhemoglobin 3.9 (0.0-6.9) % T HGB POC Potassium 5.5 H (3.5-5.1) Sodium (137-145) mmol/L Potassium (3.5-5.1) mmol/L Chloride (98-107) mmol/L Carbon Dioxide (22-30) mmol/L Anion Gap (5-15) MEQ/L BUN (7-17) mg/dL Creatinine (0.52-1.04) mg/dL Estimated GFR ML/MIN Glucose (74-106) mg/dL Lactic Acid (0.4-2.0) Calcium (8.4-10.2) mg/dL Total Bilirubin (0.2-1.3) mg/dL AST (14-36) U/L ALT (0-35) U/L Alkaline Phosphatase (38-126) U/L Troponin I (0.000-0.034) ng/mL Serum Total Protein (6.3-8.2) g/dL Albumin (3.5-5.0) g/dL Lipase (23-300) U/L Urine Color STRAW (YELLOW) Urine Appearance SLIGHTLY CLOUDY (CLEAR) Urine pH 5.0 (5-6) Ur Specific [place] 1.023 (1.005-1.025) Urine Protein NEGATIVE (Negative) Urine Ketones MODERATE (NEGATIVE) Urine Blood NEGATIVE (0-5) Patrick/ul Urine Nitrite NEGATIVE (NEGATIVE) Urine Bilirubin NEGATIVE (NEGATIVE) Urine Urobilinogen NEGATIVE (0-1) mg/dL Ur Leukocyte Esterase LARGE (NEGATIVE) Urine WBC (Auto) 16-25 (0-5) /HPF Urine RBC (Auto) 16-25 (0-2) /HPF U Epithel Cells (Auto) FEW (FEW) /HPF Urine Bacteria (Auto) FEW (NEGATIVE) /HPF Urine Mucus (Auto) SLIGHT (NEGATIVE) /HPF U Trichomonas (Auto) PRESENT (NEGATIVE) /HPF Urine Culture Reflexed YES (NO) Urine Glucose >=500 (NEGATIVE) mg/dL Urine HCG, Qual NEGATIVE (Negative) Influenza Type A Ag (NEGATIVE) Influenza Type B Ag (NEGATIVE) RSV (PCR) (Negative) SARS-CoV-2 (PCR) (NEGATIVE) 01/02/21 01/02/21 01/02/21 Range/Units 11:43 11:43 11:43 WBC 11.9 H (4.0-10.5) K/mm3 RBC 4.38 (4.1-5.4) M/mm3 Hgb 11.1 L (12.0-16.0) gm/dl Hct 37.1 (35-47) % MCV 84.7 (78-100) fl MCH 25.3 L (26-32) pg MCHC 29.9 L (32-36) g/dl RDW 15.3 H (11.5-14.0) % Plt Count 543 H (150-450) K/mm3 MPV 10.6 (7.5-11.0) fl Gran % 56.5 (36.0-66.0) % Eos # (Auto) 0.04 (0-0.5) Absolute Lymphs (auto) 4.20 (1.0-4.6) Absolute Monos (auto) 0.90 (0.0-1.3) Lymphocytes % 35.2 (24.0-44.0) % Monocytes % 7.5 (0.0-12.0) % Eosinophils % 0.3 (0.00-5.0) % Basophils % 0.5 (0.0-0.4) % Absolute Granulocytes 6.74 (1.4-6.9) Basophils # 0.06 (0-0.4) pO2/FiO2 Ratio % VBG pH (7.32-7.42) VBG pCO2 at Pat Temp (42-55) mm/Hg VBG pO2 at Pat Temp (25-40) mm/Hg VBG HCO3 (22-28) meq/L VBG O2 Sat ([place]) (95-100) VBG Base Excess (-2.0-2.0) VBG Hemoglobin VBG Carboxyhemoglobin (0.0-6.9) % T HGB POC Potassium (3.5-5.1) Sodium 128 L (137-145) mmol/L Potassium 5.1 (3.5-5.1) mmol/L Chloride 90 L (98-107) mmol/L Carbon Dioxide 6 L* (22-30) mmol/L Anion Gap 36.2 H (5-15) MEQ/L BUN 17 (7-17) mg/dL Creatinine 0.88 (0.52-1.04) mg/dL Estimated GFR > 60.0 ML/MIN Glucose 719 H* (74-106) mg/dL Lactic Acid (0.4-2.0) Calcium 9.7 (8.4-10.2) mg/dL Total Bilirubin 0.50 (0.2-1.3) mg/dL AST 23 (14-36) U/L ALT 24 (0-35) U/L Alkaline Phosphatase 242 H (38-126) U/L Troponin I < 0.012 (0.000-0.034) ng/mL Serum Total Protein 8.8 H (6.3-8.2) g/dL Albumin 5.1 H (3.5-5.0) g/dL Lipase 238 (23-300) U/L Urine Color (YELLOW) Urine Appearance (CLEAR) Urine pH (5-6) Ur Specific [place] (1.005-1.025) Urine Protein (Negative) Urine Ketones (NEGATIVE) Urine Blood (0-5) Patrick/ul Urine Nitrite (NEGATIVE) Urine Bilirubin (NEGATIVE) Urine Urobilinogen (0-1) mg/dL Ur Leukocyte Esterase (NEGATIVE) Urine WBC (Auto) (0-5) /HPF Urine RBC (Auto) (0-2) /HPF U Epithel Cells (Auto) (FEW) /HPF Urine Bacteria (Auto) (NEGATIVE) /HPF Urine Mucus (Auto) (NEGATIVE) /HPF U Trichomonas (Auto) (NEGATIVE) /HPF Urine Culture Reflexed (NO) Urine Glucose (NEGATIVE) mg/dL Urine HCG, Qual (Negative) Influenza Type A Ag (NEGATIVE) Influenza Type B Ag (NEGATIVE) RSV (PCR) (Negative) SARS-CoV-2 (PCR) (NEGATIVE) 01/02/21 Range/Units 11:38 WBC (4.0-10.5) K/mm3 RBC (4.1-5.4) M/mm3 Hgb (12.0-16.0) gm/dl Hct (35-47) % MCV (78-100) fl MCH (26-32) pg MCHC (32-36) g/dl RDW (11.5-14.0) % Plt Count (150-450) K/mm3 MPV (7.5-11.0) fl Gran % (36.0-66.0) % Eos # (Auto) (0-0.5) Absolute Lymphs (auto) (1.0-4.6) Absolute Monos (auto) (0.0-1.3) Lymphocytes % (24.0-44.0) % Monocytes % (0.0-12.0) % Eosinophils % (0.00-5.0) % Basophils % (0.0-0.4) % Absolute Granulocytes (1.4-6.9) Basophils # (0-0.4) pO2/FiO2 Ratio % VBG pH (7.32-7.42) VBG pCO2 at Pat Temp (42-55) mm/Hg VBG pO2 at Pat Temp (25-40) mm/Hg VBG HCO3 (22-28) meq/L VBG O2 Sat ([place]) (95-100) VBG Base Excess (-2.0-2.0) VBG Hemoglobin VBG Carboxyhemoglobin (0.0-6.9) % T HGB POC Potassium (3.5-5.1) Sodium (137-145) mmol/L Potassium (3.5-5.1) mmol/L Chloride (98-107) mmol/L Carbon Dioxide (22-30) mmol/L Anion Gap (5-15) MEQ/L BUN (7-17) mg/dL Creatinine (0.52-1.04) mg/dL Estimated GFR ML/MIN Glucose (74-106) mg/dL Lactic Acid 2.4 H (0.4-2.0) Calcium (8.4-10.2) mg/dL Total Bilirubin (0.2-1.3) mg/dL AST (14-36) U/L ALT (0-35) U/L Alkaline Phosphatase (38-126) U/L Troponin I (0.000-0.034) ng/mL Serum Total Protein (6.3-8.2) g/dL Albumin (3.5-5.0) g/dL Lipase (23-300) U/L Urine Color (YELLOW) Urine Appearance (CLEAR) Urine pH (5-6) Ur Specific [place] (1.005-1.025) Urine Protein (Negative) Urine Ketones (NEGATIVE) Urine Blood (0-5) Patrick/ul Urine Nitrite (NEGATIVE) Urine Bilirubin (NEGATIVE) Urine Urobilinogen (0-1) mg/dL Ur Leukocyte Esterase (NEGATIVE) Urine WBC (Auto) (0-5) /HPF Urine RBC (Auto) (0-2) /HPF U Epithel Cells (Auto) (FEW) /HPF Urine Bacteria (Auto) (NEGATIVE) /HPF Urine Mucus (Auto) (NEGATIVE) /HPF U Trichomonas (Auto) (NEGATIVE) /HPF Urine Culture Reflexed (NO) Urine Glucose (NEGATIVE) mg/dL Urine HCG, Qual (Negative) Influenza Type A Ag (NEGATIVE) Influenza Type B Ag (NEGATIVE) RSV (PCR) (Negative) SARS-CoV-2 (PCR) (NEGATIVE) - Progress Progress: improved Progress Note: Patient reassessed. She feels nauseous. Patient continues to complain of some abdominal pain. CT abdomen pelvis ordered. Results pending. Case discussed with Dr. Adams who accepts admission to observation. Patient was Covid negative. CT scan reveals ileus versus partial distal small bowel obstruction. Patient has pain no focal tenderness. Dr. Luciano updated on CT abdomen pelvis findings. 01/02/21 15:11 01/02/21 18:32 Discussed with : Vivek Will see patient in: hospital (observation) Counseled pt/family regarding: lab results, diagnosis, rad results - Departure Departure Disposition: Observation Clinical Impression: UTI (urinary tract infection), DKA (diabetic ketoacidoses), Leukocytosis, Thrombocytosis, Hyponatremia, Metabolic acidosis, High anion gap metabolic aci dosis, Lactic acidosis Condition: Stable Critical Care Time: No
[2021-01-02 11:57] LABS: ALBUMIN 5.1 g/dL (3.5-5.0); ALKALINE PHOSPHATASE 242 U/L (38-126); ANION GAP 36.2 MEQ/L (5-15); BLOOD UREA NITROGEN 17 mg/dL (7-17); CHLORIDE 90 mmol/L (98-107); Calcium 9.7 mg/dL (8.4-10.2); Creatinine 1 0.88 mg/dL (0.52-1.04); EST GLOMERULAR FILTRATION RATE > 60.0 ML/MIN; LIPASE 238 U/L (23-300); Potassium 5.1 mmol/L (3.5-5.1); SGOT/AST 23 U/L (14-36); SGPT/ALT 24 U/L (0-35); SODIUM 128 mmol/L (137-145); Total Protein 8.8 g/dL (6.3-8.2)
[2021-01-02] MEDS ORDERED: Zofran 4 MG/2 ML VIAL IV ONE (12:02)
[2021-01-02] MEDS ORDERED: Zofran 4 MG/2 ML VIAL ONE ×2 (12:04→13:09)
[2021-01-02 12:06] LABS: Glucose 719 mg/dL (74-106)
[2021-01-02 12:08] LABS: Carbon Dioxide 6 mmol/L (22-30)
[2021-01-02 12:45] LABS: VBG BASE EXCESS -19.7 (-2.0-2.0); VBG CARBOXYHEMOGLOBIN 3.9 % T HGB (0.0-6.9); VBG HCO3- 5.3 meq/L (22-28); VBG O2 SATURATION 99.6 (95-100); VBG POTASSIUM 5.5 (3.5-5.1)
[2021-01-02 12:46] LABS: VBG pH 7.22 (7.32-7.42)
[2021-01-02] MEDS ORDERED: MORPHINE SULFATE 4 MG INJ IV ONE (12:51)
[2021-01-02 13:06] LABS: Appearance SLIGHTLY CLOUDY (CLEAR); Bacteria FEW /HPF (NEGATIVE); Bilirubin NEGATIVE (NEGATIVE); Blood NEGATIVE Ery/ul (0-5); Epithelial Cells FEW /HPF (FEW); Glucose >=500 mg/dL (NEGATIVE); Ketones MODERATE (NEGATIVE); Leukocyte Esterase LARGE (NEGATIVE); Mucus SLIGHT /HPF (NEGATIVE); Nitrite NEGATIVE (NEGATIVE); Protein,Urine Dip NEGATIVE (Negative); Specific Gravity 1.023 (1.005-1.025); Trichomonas PRESENT /HPF (NEGATIVE); Urobilinogen NEGATIVE mg/dL (0-1)
[2021-01-02] MEDS ORDERED: HUMULIN R 100 UNIT in Sodium Chloride 0.9% 100 ML BAG 100 ML IV PRN (13:08)
[2021-01-02] MEDS ORDERED: MORPHINE SULFATE 4 MG INJ ONE (13:09)
[2021-01-02] MEDS ORDERED: ROCEPHIN 1 Gm-D5w 50 ml Bag** 1 G/50 ML IVPB IV STA (13:18)
[2021-01-02] MEDS ORDERED: Lactated Ringers 1,000 ML IV SCH (13:30)
[2021-01-02] MEDS ORDERED: ROCEPHIN 1 Gm-D5w 50 ml Bag** 1 G/50 ML IVPB IV ONE (13:52)
[2021-01-02 14:31] LABS: INFLUENZA A NEGATIVE (NEGATIVE); INFLUENZA B NEGATIVE (NEGATIVE); RESPIRATORY SYNCTIAL VIRUS NEGATIVE (Negative)
[2021-01-02] MEDS ORDERED: Compazine 10 MG/2 ML IV ONE (14:51)
[2021-01-02] MEDS ORDERED: Compazine 10 MG/2 ML ONE (14:52)
[2021-01-02] MEDS ORDERED: Zofran 4 MG/2 ML VIAL IV PRN (16:05)
[2021-01-02] MEDS ORDERED: MORPHINE SULFATE 4 MG INJ IV PRN (16:05)
--- NOTE | 2021-01-02 16:30 | XRAY ---
Indication: General abdominal pain. Diabetic ketoacidosis. Multiple contiguous axial images obtained through the abdomen and pelvis without contrast. Comparison: December 06, 2020. Study is slightly degraded by respiration artifact throughout. Lung bases grossly clear. Heart not enlarged. Stomach is now moderately fluid distended and the small bowel loops are mildly fluid distended throughout with fluid leveling. There is bowel gas in the ascending and transverse colon. Findings favor ileus versus partial distal small bowel obstruction. There has been interval cholecystectomy. No free fluid/air. Remaining liver, pancreas, spleen, adrenal glands, kidneys, ureters, bladder, and uterus are unremarkable for noncontrast exam. Minimal aortic calcifications without AAA. Impression: 1. Diffuse respiration artifact. 2. Status post cholecystectomy. 3. New fluid distended stomach and small bowel loops with fluid leveling, ileus versus partial distal small bowel obstruction.
[2021-01-02 16:56] LABS: VBG BASE EXCESS -20.1 (-2.0-2.0); VBG CARBOXYHEMOGLOBIN 2.6 % T HGB (0.0-6.9); VBG HCO3- 6.2 meq/L (22-28); VBG HEMOGLOBIN 10.2; VBG O2 SATURATION 84.8 (95-100); VBG POTASSIUM 4.3 (3.5-5.1)
[2021-01-02 16:57] LABS: VBG pH 7.17 (7.32-7.42)
[2021-01-02 17:10] LABS: BLOOD UREA NITROGEN 17 mg/dL (7-17); CHLORIDE 102 mmol/L (98-107); Calcium 8.4 mg/dL (8.4-10.2); Creatinine 1 0.75 mg/dL (0.52-1.04); EST GLOMERULAR FILTRATION RATE > 60.0 ML/MIN; Glucose 376 mg/dL (74-106); MAGNESIUM 2.4 mg/dL (1.6-2.3); Potassium 4.2 mmol/L (3.5-5.1); SODIUM 134 mmol/L (137-145)
[2021-01-02 17:14] LABS: Carbon Dioxide < 5 mmol/L (22-30)
[2021-01-02] MEDS ORDERED: PHARMACY DOSING REQUIRED: VANCOMYCIN IV STA (17:36)
[2021-01-02] MEDS ORDERED: Zosyn 3.375 GM Vial IV ONE ×2 (17:42→22:50)
[2021-01-02] MEDS ORDERED: Sodium Chloride 0.9% 100 ML BAG 100 ML ONE (17:50)
[2021-01-02] MEDS: Zosyn 3.375 GM Vial 3.375 GM in Sodium Chloride 100ML MINI-BAG PLUS 100 ML IV SCH ×2 (18:22→18:49)
[2021-01-02] MEDS ORDERED: Sodium Chloride 0.9% 1000 ML 1,000 ML IV SCH (18:30)
[2021-01-02] MEDS ORDERED: Dextrose 5% -0.45 NaCl 1000 ML 1,000 ML IV ONE (18:35)
[2021-01-02] MEDS: Dextrose 5% -0.45 NaCl 1000 ML 1,000 ML IV SCH (18:43)
[2021-01-02] MEDS ORDERED: VANCOMYCIN 1 GRAM/200 ML BAG 1 GM/200 ML PIGGYBACK IV ONE (18:50)
[2021-01-02 19:10] LABS: ANION GAP 22.4 MEQ/L (5-15); BLOOD UREA NITROGEN 15 mg/dL (7-17); CHLORIDE 108 mmol/L (98-107); Calcium 7.7 mg/dL (8.4-10.2); Creatinine 1 0.55 mg/dL (0.52-1.04); EST GLOMERULAR FILTRATION RATE > 60.0 ML/MIN; Glucose 164 mg/dL (74-106); Potassium 3.9 mmol/L (3.5-5.1); SODIUM 134 mmol/L (137-145)
[2021-01-02 19:17] LABS: Carbon Dioxide 8 mmol/L (22-30)
[2021-01-02 20:51] LABS: ANION GAP 14.6 MEQ/L (5-15); BLOOD UREA NITROGEN 14 mg/dL (7-17); CHLORIDE 108 mmol/L (98-107); Calcium 7.7 mg/dL (8.4-10.2); Creatinine 1 0.52 mg/dL (0.52-1.04); EST GLOMERULAR FILTRATION RATE > 60.0 ML/MIN; Glucose 154 mg/dL (74-106); Potassium 3.7 mmol/L (3.5-5.1); SODIUM 133 mmol/L (137-145)
[2021-01-02 20:59] LABS: Carbon Dioxide 14 mmol/L (22-30)
[2021-01-02 21:06] LABS: VBG BASE EXCESS -8.6 (-2.0-2.0); VBG CARBOXYHEMOGLOBIN 5.2 % T HGB (0.0-6.9); VBG HCO3- 13.6 meq/L (22-28); VBG HEMOGLOBIN 9.3; VBG O2 SATURATION 99.3 (95-100); VBG POTASSIUM 3.8 (3.5-5.1); VBG pH 7.42 (7.32-7.42)
[2021-01-02] MEDS ORDERED: Sodium Chloride 100ML MINI-BAG PLUS 100 ML IV ONE (22:51)
[2021-01-03] MEDS: Zosyn 3.375 GM Vial 3.375 GM in Sodium Chloride 100ML MINI-BAG PLUS 100 ML IV SCH ×3 (00:03→12:36)
[2021-01-03 00:50] LABS: VBG BASE EXCESS -6.3 (-2.0-2.0); VBG CARBOXYHEMOGLOBIN 4.4 % T HGB (0.0-6.9); VBG HCO3- 18.1 meq/L (22-28); VBG HEMOGLOBIN 9.8; VBG O2 SATURATION 86.5 (95-100); VBG POTASSIUM 3.4 (3.5-5.1); VBG pH 7.36 (7.32-7.42)
[2021-01-03 00:59] LABS: BLOOD UREA NITROGEN 11 mg/dL (7-17); CHLORIDE 109 mmol/L (98-107); Calcium 7.6 mg/dL (8.4-10.2); Carbon Dioxide 18 mmol/L (22-30); Creatinine 1 0.46 mg/dL (0.52-1.04); EST GLOMERULAR FILTRATION RATE > 60.0 ML/MIN; Glucose 138 mg/dL (74-106); Potassium 3.3 mmol/L (3.5-5.1); SODIUM 134 mmol/L (137-145)
[2021-01-03] MEDS: Dextrose 5% -0.45 NaCl 1000 ML 1,000 ML IV SCH (01:32)
[2021-01-03] MEDS ORDERED: Zosyn 3.375 GM Vial IV ONE (05:28)
[2021-01-03] MEDS ORDERED: Sodium Chloride 100ML MINI-BAG PLUS 100 ML IV ONE (05:28)
[2021-01-03 05:31] LABS: Absolute Neutrophil Ct (ANC) 5.75 (1.4-6.9); BASOPHIL % 0.3 % (0.0-0.4); Basophil (Absolute #) 0.03 (0-0.4); Eosinophil % 0.8 % (0.00-5.0); Eosinophil (Absolute #) 0.07 (0-0.5); Hematocrit 29.8 % (35-47); Lymphocyte (Absolute #) 2.32 (1.0-4.6); Lymphocytes % 25.4 % (24.0-44.0); Mean Cell Volume 82.3 fl (78-100); Mean Corpuscular Hemoglobin 24.9 pg (26-32); Mean Corpuscular Hgb Concent. 30.2 g/dl (32-36); Mean Platelet Volume 9.8 fl (7.5-11.0); Monocyte (Absolute #) 0.97 (0.0-1.3); Monocytes % 10.6 % (0.0-12.0); Neutrophil % 62.9 % (36.0-66.0); Platelet Count 354 K/mm3 (150-450); Red Blood Count 3.62 M/mm3 (4.1-5.4); Red Cell Distribution Width 15.3 % (11.5-14.0); White Blood Count 9.1 K/mm3 (4.0-10.5)
[2021-01-03 05:51] LABS: VBG BASE EXCESS -6.6 (-2.0-2.0); VBG CARBOXYHEMOGLOBIN 1.8 % T HGB (0.0-6.9); VBG HCO3- 18.3 meq/L (22-28); VBG HEMOGLOBIN 9.5; VBG POTASSIUM 3.3 (3.5-5.1); VBG pH 7.34 (7.32-7.42)
[2021-01-03 06:12] LABS: ALBUMIN 3.3 g/dL (3.5-5.0); ALKALINE PHOSPHATASE 152 U/L (38-126); ANION GAP 11.2 MEQ/L (5-15); BLOOD UREA NITROGEN 8 mg/dL (7-17); CHLORIDE 110 mmol/L (98-107); Calcium 7.6 mg/dL (8.4-10.2); Carbon Dioxide 17 mmol/L (22-30); Creatinine 1 0.43 mg/dL (0.52-1.04); EST GLOMERULAR FILTRATION RATE > 60.0 ML/MIN; Glucose 132 mg/dL (74-106); Potassium 3.1 mmol/L (3.5-5.1); SGOT/AST 40 U/L (14-36); SGPT/ALT 24 U/L (0-35); SODIUM 134 mmol/L (137-145); Total Protein 6.2 g/dL (6.3-8.2)
--- NOTE | 2021-01-03 08:46 | XRAY ---
Indication: Abdominal pain. Negative same day CT abdomen/pelvis without contrast exam. Comparison: None KUB nonacute and nonobstructed with cholecystectomy clips. Solid organs and osseous structures unremarkable. Comment: Preliminary interpretation was made by [facility]. No critical discrepancy.
[2021-01-03 08:49] LABS: VBG BASE EXCESS -7.3 (-2.0-2.0); VBG CARBOXYHEMOGLOBIN 3.1 % T HGB (0.0-6.9); VBG HCO3- 17.1 meq/L (22-28); VBG O2 SATURATION 73.4 (95-100); VBG POTASSIUM 3.1 (3.5-5.1); VBG pH 7.35 (7.32-7.42)
[2021-01-03 08:57] LABS: ANION GAP 15.9 MEQ/L (5-15); BLOOD UREA NITROGEN 6 mg/dL (7-17); CHLORIDE 107 mmol/L (98-107); Calcium 7.9 mg/dL (8.4-10.2); Creatinine 1 0.44 mg/dL (0.52-1.04); EST GLOMERULAR FILTRATION RATE > 60.0 ML/MIN; Glucose 124 mg/dL (74-106); SODIUM 136 mmol/L (137-145)
[2021-01-03] MEDS ORDERED: VANCOCIN 500 MG VIAL*** 500 MG in Sodium Chloride 100ML MINI-BAG PLUS 100 ML IV SCH (09:00)
[2021-01-03] MEDS ORDERED: D5W/0.45NS W/ 20mEq KCl 1000 ML 1,000 ML IV SCH (09:00)
[2021-01-03 09:03] LABS: Carbon Dioxide 17 mmol/L (22-30)
[2021-01-03] MEDS ORDERED: ROCEPHIN 1 Gm-D5w 50 ml Bag** 1 G/50 ML IVPB IV SCH (10:00)
--- NOTE | 2021-01-03 10:10 | XRAY ---
Indication: Ileus. Comparison: One day earlier. KUB remains negative with cholecystectomy clips. Solid organs and osseous structures remain unremarkable. No new/acute findings.
[2021-01-03 10:45] VITALS: O2SAT 99
[2021-01-03 12:24] VITALS: BP 138/88; PULSE 104
--- NOTE | 2021-01-03 12:59 | PCM.HP ---
History of Present Illness - Chief Complaint Chief Complaint: DKA History of Present Illness: is a 25 year old female. Medications & Allergies Home Medications: Home Medication List Carvedilol 3.125 mg [Coreg 3.125 MG] 3.125 mg PO BID 12/06/20 [History Confirmed 01/02/21] Insulin Glargine,Hum.rec.anlog [Lantus] 45 unit SQ HS 12/06/20 [History Confirmed 01/02/21] Insulin Lispro [Humalog Kwikpen U-100] 1 unit SQ TID PRN PRN 12/06/20 [History Confirmed 01/02/21] Allergies/Adverse Reactions: Allergies Allergy/AdvReac Type Severity Reaction Status Date / Time No Known Drug Allergies Allergy Verified 01/02/21 11:42 - Past Medical History Past Medical History: Yes Cardiac History: Hypertension Endocrine Medical History: Diabetes Type I - Female History Are you now?: No (tubal) - Past Surgical History Past Surgical History: Yes GI Surgical History: Cholecystectomy Female Surgical History: Section, Tubal Ligation Other Surgical History: cyst removed from shoulder and back of head. - Social History Smoking Status: Never smoker Exposure to second hand smoke: Yes Alcohol: None Drug Use: none Significant Family History: no pertinent family hx - Physical Exam Vital Signs: Vital Signs - 24 hr Temp Pulse Resp BP Pulse Ox 01/03/21 12:00 98.0 F 104 H 14 138/88 99 01/03/21 11:00 105 H 12 134/92 01/03/21 10:00 109 H 14 99 01/03/21 09:00 104 H 12 138/88 99 01/03/21 08:00 102 H 12 01/03/21 07:00 98.0 F 101 H 20 140/88 100 01/03/21 06:00 109 H 01/03/21 05:00 113 H 12 117/74 100 01/03/21 04:00 98.4 F 104 H 14 117/74 99 01/03/21 03:00 107 H 17 98 01/03/21 01:00 103 H 01/03/21 00:01 89 01/03/21 00:00 98.2 F 89 17 111/69 98 01/02/21 23:57 98.2 F 102 H 17 111/69 98 01/02/21 23:00 104 H 14 109/72 98 01/02/21 22:00 108 H 14 108 98 01/02/21 21:00 111 H 12 104/66 98 01/02/21 20:00 98.9 F 115 H 12 10867 98 01/02/21 19:00 115 H 14 10867 98 01/02/21 18:34 100 01/02/21 17:55 97.6 F 124 H 15 100/63 100 01/02/21 15:17 107 H 24 98/60 100 01/02/21 14:13 120 H 14 10968 100 01/02/21 13:31 98.0 F 116 H 14 108/ 100 Results - Labs Lab/Micro Results: Lab Results-Last 24 Hours 01/02/21 01/02/21 01/02/21 Range/Units 11:53 13:48 14:35 WBC (4.0-10.5) K/mm3 RBC (4.1-5.4) M/mm3 Hgb (12.0-16.0) gm/dl Hct (35-47) % MCV (78-100) fl MCH (26-32) pg MCHC (32-36) g/dl RDW (11.5-14.0) % Plt Count (150-450) K/mm3 MPV (7.5-11.0) fl Gran % (36.0-66.0) % Eos # (Auto) (0-0.5) Absolute Lymphs (auto) (1.0-4.6) Absolute Monos (auto) (0.0-1.3) Lymphocytes % (24.0-44.0) % Monocytes % (0.0-12.0) % Eosinophils % (0.00-5.0) % Basophils % (0.0-0.4) % Absolute Granulocytes (1.4-6.9) Basophils # (0-0.4) pO2/FiO2 Ratio % VBG pH (7.32-7.42) VBG pCO2 at Pat Temp (42-55) mm/Hg VBG pO2 at Pat Temp (25-40) mm/Hg VBG HCO3 (22-28) meq/L VBG O2 Sat (Chago) (95-100) VBG Base Excess (-2.0-2.0) VBG Hemoglobin VBG Carboxyhemoglobin (0.0-6.9) % T HGB POC Potassium (3.5-5.1) Sodium (137-145) mmol/L Potassium (3.5-5.1) mmol/L Chloride (98-107) mmol/L Carbon Dioxide (22-30) mmol/L Anion Gap (5-15) MEQ/L BUN (7-17) mg/dL Creatinine (0.52-1.04) mg/dL Estimated GFR ML/MIN Glucose (74-106) mg/dL POC Glucometer (50 to 500) mg/dL Lactic Acid (0.4-2.0) Calcium (8.4-10.2) mg/dL Magnesium (1.6-2.3) mg/dL Total Bilirubin (0.2-1.3) mg/dL AST (14-36) U/L ALT (0-35) U/L Alkaline Phosphatase (38-126) U/L Troponin I < 0.012 (0.000-0.034) ng/mL Serum Total Protein (6.3-8.2) g/dL Albumin (3.5-5.0) g/dL Urine Color STRAW (YELLOW) Urine Appearance SLIGHTLY CLOUDY (CLEAR) Urine pH 5.0 (5-6) Ur Specific [place] 1.023 (1.005-1.025) Urine Protein NEGATIVE (Negative) Urine Ketones MODERATE (NEGATIVE) Urine Blood NEGATIVE (0-5) Patrick/ul Urine Nitrite NEGATIVE (NEGATIVE) Urine Bilirubin NEGATIVE (NEGATIVE) Urine Urobilinogen NEGATIVE (0-1) mg/dL Ur Leukocyte Esterase LARGE (NEGATIVE) Urine WBC (Auto) 16-25 (0-5) /HPF Urine RBC (Auto) 16-25 (0-2) /HPF U Epithel Cells (Auto) FEW (FEW) /HPF Urine Bacteria (Auto) FEW (NEGATIVE) /HPF Urine Mucus (Auto) SLIGHT (NEGATIVE) /HPF U Trichomonas (Auto) PRESENT (NEGATIVE) /HPF Urine Culture Reflexed YES (NO) Urine Glucose >=500 (NEGATIVE) mg/dL Influenza Type A Ag NEGATIVE (NEGATIVE) Influenza Type B Ag NEGATIVE (NEGATIVE) RSV (PCR) NEGATIVE (Negative) SARS-CoV-2 (PCR) NEGATIVE (NEGATIVE) 01/02/21 01/02/21 01/02/21 Range/Units 14:41 16:09 16:45 WBC (4.0-10.5) K/mm3 RBC (4.1-5.4) M/mm3 Hgb (12.0-16.0) gm/dl Hct (35-47) % MCV (78-100) fl MCH (26-32) pg MCHC (32-36) g/dl RDW (11.5-14.0) % Plt Count (150-450) K/mm3 MPV (7.5-11.0) fl Gran % (36.0-66.0) % Eos # (Auto) (0-0.5) Absolute Lymphs (auto) (1.0-4.6) Absolute Monos (auto) (0.0-1.3) Lymphocytes % (24.0-44.0) % Monocytes % (0.0-12.0) % Eosinophils % (0.00-5.0) % Basophils % (0.0-0.4) % Absolute Granulocytes (1.4-6.9) Basophils # (0-0.4) pO2/FiO2 Ratio 21.0 % VBG pH 7.17 L* (7.32-7.42) VBG pCO2 at Pat Temp 17 L* (42-55) mm/Hg VBG pO2 at Pat Temp 58 H (25-40) mm/Hg VBG HCO3 6.2 L* (22-28) meq/L VBG O2 Sat (Chago) 84.8 L (95-100) VBG Base Excess -20.1 L (-2.0-2.0) VBG Hemoglobin 10.2 VBG Carboxyhemoglobin 2.6 (0.0-6.9) % T HGB POC Potassium 4.3 (3.5-5.1) Sodium (137-145) mmol/L Potassium (3.5-5.1) mmol/L Chloride (98-107) mmol/L Carbon Dioxide (22-30) mmol/L Anion Gap (5-15) MEQ/L BUN (7-17) mg/dL Creatinine (0.52-1.04) mg/dL Estimated GFR ML/MIN Glucose (74-106) mg/dL POC Glucometer 503 H* (50 to 500) mg/dL Lactic Acid 3.0 H (0.4-2.0) Calcium (8.4-10.2) mg/dL Magnesium (1.6-2.3) mg/dL Total Bilirubin (0.2-1.3) mg/dL AST (14-36) U/L ALT (0-35) U/L Alkaline Phosphatase (38-126) U/L Troponin I (0.000-0.034) ng/mL Serum Total Protein (6.3-8.2) g/dL Albumin (3.5-5.0) g/dL Urine Color (YELLOW) Urine Appearance (CLEAR) Urine pH (5-6) Ur Specific [place] (1.005-1.025) Urine Protein (Negative) Urine Ketones (NEGATIVE) Urine Blood (0-5) Patrick/ul Urine Nitrite (NEGATIVE) Urine Bilirubin (NEGATIVE) Urine Urobilinogen (0-1) mg/dL Ur Leukocyte Esterase (NEGATIVE) Urine WBC (Auto) (0-5) /HPF Urine RBC (Auto) (0-2) /HPF U Epithel Cells (Auto) (FEW) /HPF Urine Bacteria (Auto) (NEGATIVE) /HPF Urine Mucus (Auto) (NEGATIVE) /HPF U Trichomonas (Auto) (NEGATIVE) /HPF Urine Culture Reflexed (NO) Urine Glucose (NEGATIVE) mg/dL Influenza Type A Ag (NEGATIVE) Influenza Type B Ag (NEGATIVE) RSV (PCR) (Negative) SARS-CoV-2 (PCR) (NEGATIVE) 01/02/21 01/02/21 01/02/21 Range/Units 16:50 17:17 17:47 WBC (4.0-10.5) K/mm3 RBC (4.1-5.4) M/mm3 Hgb (12.0-16.0) gm/dl Hct (35-47) % MCV (78-100) fl MCH (26-32) pg MCHC (32-36) g/dl RDW (11.5-14.0) % Plt Count (150-450) K/mm3 MPV (7.5-11.0) fl Gran % (36.0-66.0) % Eos # (Auto) (0-0.5) Absolute Lymphs (auto) (1.0-4.6) Absolute Monos (auto) (0.0-1.3) Lymphocytes % (24.0-44.0) % Monocytes % (0.0-12.0) % Eosinophils % (0.00-5.0) % Basophils % (0.0-0.4) % Absolute Granulocytes (1.4-6.9) Basophils # (0-0.4) pO2/FiO2 Ratio % VBG pH (7.32-7.42) VBG pCO2 at Pat Temp (42-55) mm/Hg VBG pO2 at Pat Temp (25-40) mm/Hg VBG HCO3 (22-28) meq/L VBG O2 Sat (Chago) (95-100) VBG Base Excess (-2.0-2.0) VBG Hemoglobin VBG Carboxyhemoglobin (0.0-6.9) % T HGB POC Potassium (3.5-5.1) Sodium 134 L (137-145) mmol/L Potassium 4.2 (3.5-5.1) mmol/L Chloride 102 D (98-107) mmol/L Carbon Dioxide < 5 L* (22-30) mmol/L Anion Gap (5-15) MEQ/L BUN 17 (7-17) mg/dL Creatinine 0.75 (0.52-1.04) mg/dL Estimated GFR > 60.0 ML/MIN Glucose 376 H (74-106) mg/dL POC Glucometer 206 H (50 to 500) mg/dL Lactic Acid 4.2 H (0.4-2.0) Calcium 8.4 (8.4-10.2) mg/dL Magnesium 2.4 H (1.6-2.3) mg/dL Total Bilirubin (0.2-1.3) mg/dL AST (14-36) U/L ALT (0-35) U/L Alkaline Phosphatase (38-126) U/L Troponin I (0.000-0.034) ng/mL Serum Total Protein (6.3-8.2) g/dL Albumin (3.5-5.0) g/dL Urine Color (YELLOW) Urine Appearance (CLEAR) Urine pH (5-6) Ur Specific [place] (1.005-1.025) Urine Protein (Negative) Urine Ketones (NEGATIVE) Urine Blood (0-5) Patrick/ul Urine Nitrite (NEGATIVE) Urine Bilirubin (NEGATIVE) Urine Urobilinogen (0-1) mg/dL Ur Leukocyte Esterase (NEGATIVE) Urine WBC (Auto) (0-5) /HPF Urine RBC (Auto) (0-2) /HPF U Epithel Cells (Auto) (FEW) /HPF Urine Bacteria (Auto) (NEGATIVE) /HPF Urine Mucus (Auto) (NEGATIVE) /HPF U Trichomonas (Auto) (NEGATIVE) /HPF Urine Culture Reflexed (NO) Urine Glucose (NEGATIVE) mg/dL Influenza Type A Ag (NEGATIVE) Influenza Type B Ag (NEGATIVE) RSV (PCR) (Negative) SARS-CoV-2 (PCR) (NEGATIVE) 01/02/21 01/02/21 01/02/21 Range/Units 17:51 18:19 18:30 WBC (4.0-10.5) K/mm3 RBC (4.1-5.4) M/mm3 Hgb (12.0-16.0) gm/dl Hct (35-47) % MCV (78-100) fl MCH (26-32) pg MCHC (32-36) g/dl RDW (11.5-14.0) % Plt Count (150-450) K/mm3 MPV (7.5-11.0) fl Gran % (36.0-66.0) % Eos # (Auto) (0-0.5) Absolute Lymphs (auto) (1.0-4.6) Absolute Monos (auto) (0.0-1.3) Lymphocytes % (24.0-44.0) % Monocytes % (0.0-12.0) % Eosinophils % (0.00-5.0) % Basophils % (0.0-0.4) % Absolute Granulocytes (1.4-6.9) Basophils # (0-0.4) pO2/FiO2 Ratio % VBG pH (7.32-7.42) VBG pCO2 at Pat Temp (42-55) mm/Hg VBG pO2 at Pat Temp (25-40) mm/Hg VBG HCO3 (22-28) meq/L VBG O2 Sat (Chago) (95-100) VBG Base Excess (-2.0-2.0) VBG Hemoglobin VBG Carboxyhemoglobin (0.0-6.9) % T HGB POC Potassium (3.5-5.1) Sodium (137-145) mmol/L Potassium (3.5-5.1) mmol/L Chloride (98-107) mmol/L Carbon Dioxide (22-30) mmol/L Anion Gap (5-15) MEQ/L BUN (7-17) mg/dL Creatinine (0.52-1.04) mg/dL Estimated GFR ML/MIN Glucose (74-106) mg/dL POC Glucometer 134 H (50 to 500) mg/dL Lactic Acid 3.9 H (0.4-2.0) Calcium (8.4-10.2) mg/dL Magnesium (1.6-2.3) mg/dL Total Bilirubin (0.2-1.3) mg/dL AST (14-36) U/L ALT (0-35) U/L Alkaline Phosphatase (38-126) U/L Troponin I < 0.012 (0.000-0.034) ng/mL Serum Total Protein (6.3-8.2) g/dL Albumin (3.5-5.0) g/dL Urine Color (YELLOW) Urine Appearance (CLEAR) Urine pH (5-6) Ur Specific [place] (1.005-1.025) Urine Protein (Negative) Urine Ketones (NEGATIVE) Urine Blood (0-5) Patrick/ul Urine Nitrite (NEGATIVE) Urine Bilirubin (NEGATIVE) Urine Urobilinogen (0-1) mg/dL Ur Leukocyte Esterase (NEGATIVE) Urine WBC (Auto) (0-5) /HPF Urine RBC (Auto) (0-2) /HPF U Epithel Cells (Auto) (FEW) /HPF Urine Bacteria (Auto) (NEGATIVE) /HPF Urine Mucus (Auto) (NEGATIVE) /HPF U Trichomonas (Auto) (NEGATIVE) /HPF Urine Culture Reflexed (NO) Urine Glucose (NEGATIVE) mg/dL Influenza Type A Ag (NEGATIVE) Influenza Type B Ag (NEGATIVE) RSV (PCR) (Negative) SARS-CoV-2 (PCR) (NEGATIVE) 01/02/21 01/02/21 01/02/21 Range/Units 18:50 19:09 20:07 WBC (4.0-10.5) K/mm3 RBC (4.1-5.4) M/mm3 Hgb (12.0-16.0) gm/dl Hct (35-47) % MCV (78-100) fl MCH (26-32) pg MCHC (32-36) g/dl RDW (11.5-14.0) % Plt Count (150-450) K/mm3 MPV (7.5-11.0) fl Gran % (36.0-66.0) % Eos # (Auto) (0-0.5) Absolute Lymphs (auto) (1.0-4.6) Absolute Monos (auto) (0.0-1.3) Lymphocytes % (24.0-44.0) % Monocytes % (0.0-12.0) % Eosinophils % (0.00-5.0) % Basophils % (0.0-0.4) % Absolute Granulocytes (1.4-6.9) Basophils # (0-0.4) pO2/FiO2 Ratio % VBG pH (7.32-7.42) VBG pCO2 at Pat Temp (42-55) mm/Hg VBG pO2 at Pat Temp (25-40) mm/Hg VBG HCO3 (22-28) meq/L VBG O2 Sat ([place]ago) (95-100) VBG Base Excess (-2.0-2.0) VBG Hemoglobin VBG Carboxyhemoglobin (0.0-6.9) % T HGB POC Potassium (3.5-5.1) Sodium 134 L (137-145) mmol/L Potassium 3.9 (3.5-5.1) mmol/L Chloride 108 H (98-107) mmol/L Carbon Dioxide 8 L* (22-30) mmol/L Anion Gap 22.4 H (5-15) MEQ/L BUN 15 (7-17) mg/dL Creatinine 0.55 (0.52-1.04) mg/dL Estimated GFR > 60.0 ML/MIN Glucose 164 H (74-106) mg/dL POC Glucometer 144 H 141 H (50 to 500) mg/dL Lactic Acid (0.4-2.0) Calcium 7.7 L (8.4-10.2) mg/dL Magnesium (1.6-2.3) mg/dL Total Bilirubin (0.2-1.3) mg/dL AST (14-36) U/L ALT (0-35) U/L Alkaline Phosphatase (38-126) U/L Troponin I (0.000-0.034) ng/mL Serum Total Protein (6.3-8.2) g/dL Albumin (3.5-5.0) g/dL Urine Color (YELLOW) Urine Appearance (CLEAR) Urine pH (5-6) Ur Specific [place] (1.005-1.025) Urine Protein (Negative) Urine Ketones (NEGATIVE) Urine Blood (0-5) Patrick/ul Urine Nitrite (NEGATIVE) Urine Bilirubin (NEGATIVE) Urine Urobilinogen (0-1) mg/dL Ur Leukocyte Esterase (NEGATIVE) Urine WBC (Auto) (0-5) /HPF Urine RBC (Auto) (0-2) /HPF U Epithel Cells (Auto) (FEW) /HPF Urine Bacteria (Auto) (NEGATIVE) /HPF Urine Mucus (Auto) (NEGATIVE) /HPF U Trichomonas (Auto) (NEGATIVE) /HPF Urine Culture Reflexed (NO) Urine Glucose (NEGATIVE) mg/dL Influenza Type A Ag (NEGATIVE) Influenza Type B Ag (NEGATIVE) RSV (PCR) (Negative) SARS-CoV-2 (PCR) (NEGATIVE) 01/02/21 01/02/21 01/02/21 Range/Units 20:30 20:30 20:45 WBC (4.0-10.5) K/mm3 RBC (4.1-5.4) M/mm3 Hgb (12.0-16.0) gm/dl Hct (35-47) % MCV (78-100) fl MCH (26-32) pg MCHC (32-36) g/dl RDW (11.5-14.0) % Plt Count (150-450) K/mm3 MPV (7.5-11.0) fl Gran % (36.0-66.0) % Eos # (Auto) (0-0.5) Absolute Lymphs (auto) (1.0-4.6) Absolute Monos (auto) (0.0-1.3) Lymphocytes % (24.0-44.0) % Monocytes % (0.0-12.0) % Eosinophils % (0.00-5.0) % Basophils % (0.0-0.4) % Absolute Granulocytes (1.4-6.9) Basophils # (0-0.4) pO2/FiO2 Ratio 21.0 % VBG pH 7.42 (7.32-7.42) VBG pCO2 at Pat Temp 21 L* (42-55) mm/Hg VBG pO2 at Pat Temp 124 H (25-40) mm/Hg VBG HCO3 13.6 L* (22-28) meq/L VBG O2 Sat ([place]ago) 99.3 (95-100) VBG Base Excess -8.6 L (-2.0-2.0) VBG Hemoglobin 9.3 VBG Carboxyhemoglobin 5.2 (0.0-6.9) % T HGB POC Potassium 3.8 (3.5-5.1) Sodium 133 L (137-145) mmol/L Potassium 3.7 (3.5-5.1) mmol/L Chloride 108 H (98-107) mmol/L Carbon Dioxide 14 L* (22-30) mmol/L Anion Gap 14.6 (5-15) MEQ/L BUN 14 (7-17) mg/dL Creatinine 0.52 (0.52-1.04) mg/dL Estimated GFR > 60.0 ML/MIN Glucose 154 H (74-106) mg/dL POC Glucometer (50 to 500) mg/dL Lactic Acid (0.4-2.0) Calcium 7.7 L (8.4-10.2) mg/dL Magnesium (1.6-2.3) mg/dL Total Bilirubin (0.2-1.3) mg/dL AST (14-36) U/L ALT (0-35) U/L Alkaline Phosphatase (38-126) U/L Troponin I < 0.012 (0.000-0.034) ng/mL Serum Total Protein (6.3-8.2) g/dL Albumin (3.5-5.0) g/dL Urine Color (YELLOW) Urine Appearance (CLEAR) Urine pH (5-6) Ur Specific [place] (1.005-1.025) Urine Protein (Negative) Urine Ketones (NEGATIVE) Urine Blood (0-5) Patrick/ul Urine Nitrite (NEGATIVE) Urine Bilirubin (NEGATIVE) Urine Urobilinogen (0-1) mg/dL Ur Leukocyte Esterase (NEGATIVE) Urine WBC (Auto) (0-5) /HPF Urine RBC (Auto) (0-2) /HPF U Epithel Cells (Auto) (FEW) /HPF Urine Bacteria (Auto) (NEGATIVE) /HPF Urine Mucus (Auto) (NEGATIVE) /HPF U Trichomonas (Auto) (NEGATIVE) /HPF Urine Culture Reflexed (NO) Urine Glucose (NEGATIVE) mg/dL Influenza Type A Ag (NEGATIVE) Influenza Type B Ag (NEGATIVE) RSV (PCR) (Negative) SARS-CoV-2 (PCR) (NEGATIVE) 01/02/21 01/02/21 01/02/21 Range/Units 21:04 21:59 23:11 WBC (4.0-10.5) K/mm3 RBC (4.1-5.4) M/mm3 Hgb (12.0-16.0) gm/dl Hct (35-47) % MCV (78-100) fl MCH (26-32) pg MCHC (32-36) g/dl RDW (11.5-14.0) % Plt Count (150-450) K/mm3 MPV (7.5-11.0) fl Gran % (36.0-66.0) % Eos # (Auto) (0-0.5) Absolute Lymphs (auto) (1.0-4.6) Absolute Monos (auto) (0.0-1.3) Lymphocytes % (24.0-44.0) % Monocytes % (0.0-12.0) % Eosinophils % (0.00-5.0) % Basophils % (0.0-0.4) % Absolute Granulocytes (1.4-6.9) Basophils # (0-0.4) pO2/FiO2 Ratio % VBG pH (7.32-7.42) VBG pCO2 at Pat Temp (42-55) mm/Hg VBG pO2 at Pat Temp (25-40) mm/Hg VBG HCO3 (22-28) meq/L VBG O2 Sat ([place]ago) (95-100) VBG Base Excess (-2.0-2.0) VBG Hemoglobin VBG Carboxyhemoglobin (0.0-6.9) % T HGB POC Potassium (3.5-5.1) Sodium (137-145) mmol/L Potassium (3.5-5.1) mmol/L Chloride (98-107) mmol/L Carbon Dioxide (22-30) mmol/L Anion Gap (5-15) MEQ/L BUN (7-17) mg/dL Creatinine (0.52-1.04) mg/dL Estimated GFR ML/MIN Glucose (74-106) mg/dL POC Glucometer 137 H 128 H 140 H (50 to 500) mg/dL Lactic Acid (0.4-2.0) Calcium (8.4-10.2) mg/dL Magnesium (1.6-2.3) mg/dL Total Bilirubin (0.2-1.3) mg/dL AST (14-36) U/L ALT (0-35) U/L Alkaline Phosphatase (38-126) U/L Troponin I (0.000-0.034) ng/mL Serum Total Protein (6.3-8.2) g/dL Albumin (3.5-5.0) g/dL Urine Color (YELLOW) Urine Appearance (CLEAR) Urine pH (5-6) Ur Specific [place] (1.005-1.025) Urine Protein (Negative) Urine Ketones (NEGATIVE) Urine Blood (0-5) Patrick/ul Urine Nitrite (NEGATIVE) Urine Bilirubin (NEGATIVE) Urine Urobilinogen (0-1) mg/dL Ur Leukocyte Esterase (NEGATIVE) Urine WBC (Auto) (0-5) /HPF Urine RBC (Auto) (0-2) /HPF U Epithel Cells (Auto) (FEW) /HPF Urine Bacteria (Auto) (NEGATIVE) /HPF Urine Mucus (Auto) (NEGATIVE) /HPF U Trichomonas (Auto) (NEGATIVE) /HPF Urine Culture Reflexed (NO) Urine Glucose (NEGATIVE) mg/dL Influenza Type A Ag (NEGATIVE) Influenza Type B Ag (NEGATIVE) RSV (PCR) (Negative) SARS-CoV-2 (PCR) (NEGATIVE) 01/03/21 01/03/21 01/03/21 Range/Units 00:13 00:30 00:30 WBC (4.0-10.5) K/mm3 RBC (4.1-5.4) M/mm3 Hgb (12.0-16.0) gm/dl Hct (35-47) % MCV (78-100) fl MCH (26-32) pg MCHC (32-36) g/dl RDW (11.5-14.0) % Plt Count (150-450) K/mm3 MPV (7.5-11.0) fl Gran % (36.0-66.0) % Eos # (Auto) (0-0.5) Absolute Lymphs (auto) (1.0-4.6) Absolute Monos (auto) (0.0-1.3) Lymphocytes % (24.0-44.0) % Monocytes % (0.0-12.0) % Eosinophils % (0.00-5.0) % Basophils % (0.0-0.4) % Absolute Granulocytes (1.4-6.9) Basophils # (0-0.4) pO2/FiO2 Ratio % VBG pH (7.32-7.42) VBG pCO2 at Pat Temp (42-55) mm/Hg VBG pO2 at Pat Temp (25-40) mm/Hg VBG HCO3 (22-28) meq/L VBG O2 Sat ([place]ago) (95-100) VBG Base Excess (-2.0-2.0) VBG Hemoglobin VBG Carboxyhemoglobin (0.0-6.9) % T HGB POC Potassium (3.5-5.1) Sodium 134 L (137-145) mmol/L Potassium 3.3 L (3.5-5.1) mmol/L Chloride 109 H (98-107) mmol/L Carbon Dioxide 18 L (22-30) mmol/L Anion Gap 11.0 (5-15) MEQ/L BUN 11 (7-17) mg/dL Creatinine 0.46 L (0.52-1.04) mg/dL Estimated GFR > 60.0 ML/MIN Glucose 138 H (74-106) mg/dL POC Glucometer 135 H (50 to 500) mg/dL Lactic Acid (0.4-2.0) Calcium 7.6 L (8.4-10.2) mg/dL Magnesium (1.6-2.3) mg/dL Total Bilirubin (0.2-1.3) mg/dL AST (14-36) U/L ALT (0-35) U/L Alkaline Phosphatase (38-126) U/L Troponin I < 0.012 (0.000-0.034) ng/mL Serum Total Protein (6.3-8.2) g/dL Albumin (3.5-5.0) g/dL Urine Color (YELLOW) Urine Appearance (CLEAR) Urine pH (5-6) Ur Specific [place] (1.005-1.025) Urine Protein (Negative) Urine Ketones (NEGATIVE) Urine Blood (0-5) Patrick/ul Urine Nitrite (NEGATIVE) Urine Bilirubin (NEGATIVE) Urine Urobilinogen (0-1) mg/dL Ur Leukocyte Esterase (NEGATIVE) Urine WBC (Auto) (0-5) /HPF Urine RBC (Auto) (0-2) /HPF U Epithel Cells (Auto) (FEW) /HPF Urine Bacteria (Auto) (NEGATIVE) /HPF Urine Mucus (Auto) (NEGATIVE) /HPF U Trichomonas (Auto) (NEGATIVE) /HPF Urine Culture Reflexed (NO) Urine Glucose (NEGATIVE) mg/dL Influenza Type A Ag (NEGATIVE) Influenza Type B Ag (NEGATIVE) RSV (PCR) (Negative) SARS-CoV-2 (PCR) (NEGATIVE) 01/03/21 01/03/21 01/03/21 Range/Units 00:40 01:22 03:00 WBC (4.0-10.5) K/mm3 RBC (4.1-5.4) M/mm3 Hgb (12.0-16.0) gm/dl Hct (35-47) % MCV (78-100) fl MCH (26-32) pg MCHC (32-36) g/dl RDW (11.5-14.0) % Plt Count (150-450) K/mm3 MPV (7.5-11.0) fl Gran % (36.0-66.0) % Eos # (Auto) (0-0.5) Absolute Lymphs (auto) (1.0-4.6) Absolute Monos (auto) (0.0-1.3) Lymphocytes % (24.0-44.0) % Monocytes % (0.0-12.0) % Eosinophils % (0.00-5.0) % Basophils % (0.0-0.4) % Absolute Granulocytes (1.4-6.9) Basophils # (0-0.4) pO2/FiO2 Ratio 21.0 % VBG pH 7.36 (7.32-7.42) VBG pCO2 at Pat Temp 32 L (42-55) mm/Hg VBG pO2 at Pat Temp 52 H (25-40) mm/Hg VBG HCO3 18.1 L (22-28) meq/L VBG O2 Sat (Chago) 86.5 L (95-100) VBG Base Excess -6.3 L (-2.0-2.0) VBG Hemoglobin 9.8 VBG Carboxyhemoglobin 4.4 (0.0-6.9) % T HGB POC Potassium 3.4 L (3.5-5.1) Sodium (137-145) mmol/L Potassium (3.5-5.1) mmol/L Chloride (98-107) mmol/L Carbon Dioxide (22-30) mmol/L Anion Gap (5-15) MEQ/L BUN (7-17) mg/dL Creatinine (0.52-1.04) mg/dL Estimated GFR ML/MIN Glucose (74-106) mg/dL POC Glucometer 126 H 128 H (50 to 500) mg/dL Lactic Acid (0.4-2.0) Calcium (8.4-10.2) mg/dL Magnesium (1.6-2.3) mg/dL Total Bilirubin (0.2-1.3) mg/dL AST (14-36) U/L ALT (0-35) U/L Alkaline Phosphatase (38-126) U/L Troponin I (0.000-0.034) ng/mL Serum Total Protein (6.3-8.2) g/dL Albumin (3.5-5.0) g/dL Urine Color (YELLOW) Urine Appearance (CLEAR) Urine pH (5-6) Ur Specific [place] (1.005-1.025) Urine Protein (Negative) Urine Ketones (NEGATIVE) Urine Blood (0-5) Patrick/ul Urine Nitrite (NEGATIVE) Urine Bilirubin (NEGATIVE) Urine Urobilinogen (0-1) mg/dL Ur Leukocyte Esterase (NEGATIVE) Urine WBC (Auto) (0-5) /HPF Urine RBC (Auto) (0-2) /HPF U Epithel Cells (Auto) (FEW) /HPF Urine Bacteria (Auto) (NEGATIVE) /HPF Urine Mucus (Auto) (NEGATIVE) /HPF U Trichomonas (Auto) (NEGATIVE) /HPF Urine Culture Reflexed (NO) Urine Glucose (NEGATIVE) mg/dL Influenza Type A Ag (NEGATIVE) Influenza Type B Ag (NEGATIVE) RSV (PCR) (Negative) SARS-CoV-2 (PCR) (NEGATIVE) 05/25/21 05/25/21 05/25/21 Range/Units 04:08 04:20 04:20 WBC 9.1 (4.0-10.5) K/mm3 RBC 3.62 L (4.1-5.4) M/mm3 Hgb 9.0 L (12.0-16.0) gm/dl Hct 29.8 L (35-47) % MCV 82.3 (78-100) fl MCH 24.9 L (26-32) pg MCHC 30.2 L (32-36) g/dl RDW 15.3 H (11.5-14.0) % Plt Count 354 D (150-450) K/mm3 MPV 9.8 (7.5-11.0) fl Gran % 62.9 (36.0-66.0) % Eos # (Auto) 0.07 (0-0.5) Absolute Lymphs (auto) 2.32 (1.0-4.6) Absolute Monos (auto) 0.97 (0.0-1.3) Lymphocytes % 25.4 (24.0-44.0) % Monocytes % 10.6 (0.0-12.0) % Eosinophils % 0.8 (0.00-5.0) % Basophils % 0.3 (0.0-0.4) % Absolute Granulocytes 5.75 (1.4-6.9) Basophils # 0.03 (0-0.4) pO2/FiO2 Ratio % VBG pH (7.32-7.42) VBG pCO2 at Pat Temp (42-55) mm/Hg VBG pO2 at Pat Temp (25-40) mm/Hg VBG HCO3 (22-28) meq/L VBG O2 Sat (Chago) (95-100) VBG Base Excess (-2.0-2.0) VBG Hemoglobin VBG Carboxyhemoglobin (0.0-6.9) % T HGB POC Potassium (3.5-5.1) Sodium 134 L (137-145) mmol/L Potassium 3.1 L (3.5-5.1) mmol/L Chloride 110 H (98-107) mmol/L Carbon Dioxide 17 L (22-30) mmol/L Anion Gap 11.2 (5-15) MEQ/L BUN 8 (7-17) mg/dL Creatinine 0.43 L (0.52-1.04) mg/dL Estimated GFR > 60.0 ML/MIN Glucose 132 H (74-106) mg/dL POC Glucometer 107 H (50 to 500) mg/dL Lactic Acid (0.4-2.0) Calcium 7.6 L (8.4-10.2) mg/dL Magnesium (1.6-2.3) mg/dL Total Bilirubin 0.20 (0.2-1.3) mg/dL AST 40 H (14-36) U/L ALT 24 (0-35) U/L Alkaline Phosphatase 152 H (38-126) U/L Troponin I (0.000-0.034) ng/mL Serum Total Protein 6.2 L (6.3-8.2) g/dL Albumin 3.3 L (3.5-5.0) g/dL Urine Color (YELLOW) Urine Appearance (CLEAR) Urine pH (5-6) Ur Specific [place] (1.005-1.025) Urine Protein (Negative) Urine Ketones (NEGATIVE) Urine Blood (0-5) Patrick/ul Urine Nitrite (NEGATIVE) Urine Bilirubin (NEGATIVE) Urine Urobilinogen (0-1) mg/dL Ur Leukocyte Esterase (NEGATIVE) Urine WBC (Auto) (0-5) /HPF Urine RBC (Auto) (0-2) /HPF U Epithel Cells (Auto) (FEW) /HPF Urine Bacteria (Auto) (NEGATIVE) /HPF Urine Mucus (Auto) (NEGATIVE) /HPF U Trichomonas (Auto) (NEGATIVE) /HPF Urine Culture Reflexed (NO) Urine Glucose (NEGATIVE) mg/dL Influenza Type A Ag (NEGATIVE) Influenza Type B Ag (NEGATIVE) RSV (PCR) (Negative) SARS-CoV-2 (PCR) (NEGATIVE) 01/03/21 01/03/21 01/03/21 Range/Units 04:30 05:18 06:25 WBC (4.0-10.5) K/mm3 RBC (4.1-5.4) M/mm3 Hgb (12.0-16.0) gm/dl Hct (35-47) % MCV (78-100) fl MCH (26-32) pg MCHC (32-36) g/dl RDW (11.5-14.0) % Plt Count (150-450) K/mm3 MPV (7.5-11.0) fl Gran % (36.0-66.0) % Eos # (Auto) (0-0.5) Absolute Lymphs (auto) (1.0-4.6) Absolute Monos (auto) (0.0-1.3) Lymphocytes % (24.0-44.0) % Monocytes % (0.0-12.0) % Eosinophils % (0.00-5.0) % Basophils % (0.0-0.4) % Absolute Granulocytes (1.4-6.9) Basophils # (0-0.4) pO2/FiO2 Ratio 21.0 % VBG pH 7.34 (7.32-7.42) VBG pCO2 at Pat Temp 34 L (42-55) mm/Hg VBG pO2 at Pat Temp 65 H (25-40) mm/Hg VBG HCO3 18.3 L (22-28) meq/L VBG O2 Sat (Chago) 94.0 L (95-100) VBG Base Excess -6.6 L (-2.0-2.0) VBG Hemoglobin 9.5 VBG Carboxyhemoglobin 1.8 (0.0-6.9) % T HGB POC Potassium 3.3 L (3.5-5.1) Sodium (137-145) mmol/L Potassium (3.5-5.1) mmol/L Chloride (98-107) mmol/L Carbon Dioxide (22-30) mmol/L Anion Gap (5-15) MEQ/L BUN (7-17) mg/dL Creatinine (0.52-1.04) mg/dL Estimated GFR ML/MIN Glucose (74-106) mg/dL POC Glucometer 145 H 139 H (50 to 500) mg/dL Lactic Acid (0.4-2.0) Calcium (8.4-10.2) mg/dL Magnesium (1.6-2.3) mg/dL Total Bilirubin (0.2-1.3) mg/dL AST (14-36) U/L ALT (0-35) U/L Alkaline Phosphatase (38-126) U/L Troponin I (0.000-0.034) ng/mL Serum Total Protein (6.3-8.2) g/dL Albumin (3.5-5.0) g/dL Urine Color (YELLOW) Urine Appearance (CLEAR) Urine pH (5-6) Ur Specific [place] (1.005-1.025) Urine Protein (Negative) Urine Ketones (NEGATIVE) Urine Blood (0-5) Patrick/ul Urine Nitrite (NEGATIVE) Urine Bilirubin (NEGATIVE) Urine Urobilinogen (0-1) mg/dL Ur Leukocyte Esterase (NEGATIVE) Urine WBC (Auto) (0-5) /HPF Urine RBC (Auto) (0-2) /HPF U Epithel Cells (Auto) (FEW) /HPF Urine Bacteria (Auto) (NEGATIVE) /HPF Urine Mucus (Auto) (NEGATIVE) /HPF U Trichomonas (Auto) (NEGATIVE) /HPF Urine Culture Reflexed (NO) Urine Glucose (NEGATIVE) mg/dL Influenza Type A Ag (NEGATIVE) Influenza Type B Ag (NEGATIVE) RSV (PCR) (Negative) SARS-CoV-2 (PCR) (NEGATIVE) 01/03/21 01/03/21 01/03/21 Range/Units 07:21 08:35 08:40 WBC (4.0-10.5) K/mm3 RBC (4.1-5.4) M/mm3 Hgb (12.0-16.0) gm/dl Hct (35-47) % MCV (78-100) fl MCH (26-32) pg MCHC (32-36) g/dl RDW (11.5-14.0) % Plt Count (150-450) K/mm3 MPV (7.5-11.0) fl Gran % (36.0-66.0) % Eos # (Auto) (0-0.5) Absolute Lymphs (auto) (1.0-4.6) Absolute Monos (auto) (0.0-1.3) Lymphocytes % (24.0-44.0) % Monocytes % (0.0-12.0) % Eosinophils % (0.00-5.0) % Basophils % (0.0-0.4) % Absolute Granulocytes (1.4-6.9) Basophils # (0-0.4) pO2/FiO2 Ratio 21.0 % VBG pH 7.35 (7.32-7.42) VBG pCO2 at Pat Temp 31 L (42-55) mm/Hg VBG pO2 at Pat Temp 42 H (25-40) mm/Hg VBG HCO3 17.1 L (22-28) meq/L VBG O2 Sat (Chago) 73.4 L (95-100) VBG Base Excess -7.3 L (-2.0-2.0) VBG Hemoglobin 10.0 VBG Carboxyhemoglobin 3.1 (0.0-6.9) % T HGB POC Potassium 3.1 L (3.5-5.1) Sodium 136 L (137-145) mmol/L Potassium 3.0 L* (3.5-5.1) mmol/L Chloride 107 (98-107) mmol/L Carbon Dioxide 17 L (22-30) mmol/L Anion Gap 15.9 H (5-15) MEQ/L BUN 6 L (7-17) mg/dL Creatinine 0.44 L (0.52-1.04) mg/dL Estimated GFR > 60.0 ML/MIN Glucose 124 H (74-106) mg/dL POC Glucometer 135 H (50 to 500) mg/dL Lactic Acid (0.4-2.0) Calcium 7.9 L (8.4-10.2) mg/dL Magnesium (1.6-2.3) mg/dL Total Bilirubin (0.2-1.3) mg/dL AST (14-36) U/L ALT (0-35) U/L Alkaline Phosphatase (38-126) U/L Troponin I (0.000-0.034) ng/mL Serum Total Protein (6.3-8.2) g/dL Albumin (3.5-5.0) g/dL Urine Color (YELLOW) Urine Appearance (CLEAR) Urine pH (5-6) Ur Specific [place] (1.005-1.025) Urine Protein (Negative) Urine Ketones (NEGATIVE) Urine Blood (0-5) Patrick/ul Urine Nitrite (NEGATIVE) Urine Bilirubin (NEGATIVE) Urine Urobilinogen (0-1) mg/dL Ur Leukocyte Esterase (NEGATIVE) Urine WBC (Auto) (0-5) /HPF Urine RBC (Auto) (0-2) /HPF U Epithel Cells (Auto) (FEW) /HPF Urine Bacteria (Auto) (NEGATIVE) /HPF Urine Mucus (Auto) (NEGATIVE) /HPF U Trichomonas (Auto) (NEGATIVE) /HPF Urine Culture Reflexed (NO) Urine Glucose (NEGATIVE) mg/dL Influenza Type A Ag (NEGATIVE) Influenza Type B Ag (NEGATIVE) RSV (PCR) (Negative) SARS-CoV-2 (PCR) (NEGATIVE) 01/03/21 01/03/21 01/03/21 Range/Units 10:16 11:18 12:14 WBC (4.0-10.5) K/mm3 RBC (4.1-5.4) M/mm3 Hgb (12.0-16.0) gm/dl Hct (35-47) % MCV (78-100) fl MCH (26-32) pg MCHC (32-36) g/dl RDW (11.5-14.0) % Plt Count (150-450) K/mm3 MPV (7.5-11.0) fl Gran % (36.0-66.0) % Eos # (Auto) (0-0.5) Absolute Lymphs (auto) (1.0-4.6) Absolute Monos (auto) (0.0-1.3) Lymphocytes % (24.0-44.0) % Monocytes % (0.0-12.0) % Eosinophils % (0.00-5.0) % Basophils % (0.0-0.4) % Absolute Granulocytes (1.4-6.9) Basophils # (0-0.4) pO2/FiO2 Ratio % VBG pH (7.32-7.42) VBG pCO2 at Pat Temp (42-55) mm/Hg VBG pO2 at Pat Temp (25-40) mm/Hg VBG HCO3 (22-28) meq/L VBG O2 Sat (Chago) (95-100) VBG Base Excess (-2.0-2.0) VBG Hemoglobin VBG Carboxyhemoglobin (0.0-6.9) % T HGB POC Potassium (3.5-5.1) Sodium (137-145) mmol/L Potassium (3.5-5.1) mmol/L Chloride (98-107) mmol/L Carbon Dioxide (22-30) mmol/L Anion Gap (5-15) MEQ/L BUN (7-17) mg/dL Creatinine (0.52-1.04) mg/dL Estimated GFR ML/MIN Glucose (74-106) mg/dL POC Glucometer 125 H TNP 130 H (50 to 500) mg/dL Lactic Acid (0.4-2.0) Calcium (8.4-10.2) mg/dL Magnesium (1.6-2.3) mg/dL Total Bilirubin (0.2-1.3) mg/dL AST (14-36) U/L ALT (0-35) U/L Alkaline Phosphatase (38-126) U/L Troponin I (0.000-0.034) ng/mL Serum Total Protein (6.3-8.2) g/dL Albumin (3.5-5.0) g/dL Urine Color (YELLOW) Urine Appearance (CLEAR) Urine pH (5-6) Ur Specific [place] (1.005-1.025) Urine Protein (Negative) Urine Ketones (NEGATIVE) Urine Blood (0-5) Patrick/ul Urine Nitrite (NEGATIVE) Urine Bilirubin (NEGATIVE) Urine Urobilinogen (0-1) mg/dL Ur Leukocyte Esterase (NEGATIVE) Urine WBC (Auto) (0-5) /HPF Urine RBC (Auto) (0-2) /HPF U Epithel Cells (Auto) (FEW) /HPF Urine Bacteria (Auto) (NEGATIVE) /HPF Urine Mucus (Auto) (NEGATIVE) /HPF U Trichomonas (Auto) (NEGATIVE) /HPF Urine Culture Reflexed (NO) Urine Glucose (NEGATIVE) mg/dL Influenza Type A Ag (NEGATIVE) Influenza Type B Ag (NEGATIVE) RSV (PCR) (Negative) SARS-CoV-2 (PCR) (NEGATIVE) Accuchecks Date 01/03/21 Date 01/03/21 Date 01/03/21 Date 01/03/21 Date 01/03/21 Date 01/02/21 Date 01/02/21 Time 11:36 Time 11:25 Time 10:48 Time 07:25 Time 22:00 Time 21:00 - Radiology Impressions Radiology Exams & Impressions: Radiology Procedures Category Date Time Status ABDOMEN AND PELVIS W/0 CONTRAS [CT] Stat Exams 01/02/21 15:03 Completed KUB Routine Exams 01/03/21 10:03 Completed KUB Urgent Exams 01/02/21 22:00 Completed Assessment/Plan (1) DKA (diabetic ketoacidoses) Status: Acute Code(s): E11.10 - TYPE 2 DIABETES MELLITUS WITH KETOACIDOSIS WITHOUT COMA (2) Ileus Status: Acute Code(s): K56.7 - ILEUS, UNSPECIFIED (3) Thrombocytosis Status: Acute (4) Type 1 diabetes mellitus Status: Acute (5) UTI (urinary tract infection) Status: Acute Code(s): N39.0 - URINARY TRACT INFECTION, SITE NOT SPECIFIED (6) Poorly controlled diabetes mellitus Status: Acute Code(s): E11.65 - TYPE 2 DIABETES MELLITUS WITH HYPERGLYCEMIA
[2021-01-04] MEDS ORDERED: TROUGH DRUG LEVELS IJ ONE (16:30)
== END 2021-01-03 13:49 | disposition home or self-care (01) ==
LOC: ED 11:31 → ICU 15:52
PROVIDERS: ADMIT Family Medicine; ATTEND Family Medicine
DX: E11.10 Type 2 diabetes mellitus with ketoacidosis without coma (principal); K56.7 Ileus, unspecified; D47.3 Essential (hemorrhagic) thrombocythemia; N39.0 Urinary tract infection, site not specified; Z20.828 Contact with and (suspected) exposure to other viral communicable diseases; Z79.899 Other long term (current) drug therapy; Z79.4 Long term (current) use of insulin
CPT/HCPCS: 0241U; 36000; 36415; 74018; 74176; 80048; 80053; 81001; 82805; 82947; 83605; 83690; 83735; 84484; 84703; 85025; 87077; 87086; 87186; 93005; 93041; 93268; 94760; 96360; 96365; 96374; 96375; 99285; G0378; J0696; J2270; J2405; J3370

== ENCOUNTER 2021-03-02 18:09 | Emergency (ER) | payer BC ==
[2021-03-02] MEDS ORDERED: Zofran 4 MG/2 ML VIAL IV ONE (19:10)
[2021-03-02] MEDS ORDERED: Sodium Chloride 0.9% 1000 ML 1,000 ML IV STA (19:10)
[2021-03-02] MEDS ORDERED: MORPHINE SULFATE 4 MG INJ IV ONE (19:10)
--- NOTE | 2021-03-02 19:15 | ERPHSYRPT ---
- History of Present Illness Time Seen by Provider: 03/02/21 18:18 Historian: patient Exam Limitations: no limitations Patient Subjective Stated Complaint: abd pain R sided that radiates to R ribs Triage Nursing Assessment: pt to ED c/o R sided abd pain x 5 days and neck pain since waking this am. febrile on arrival, 101.9. tender in RLQ and rebound tenderness. no urinary issues or bowel issues reported, however requesting GC testing being done while shes here. rates 10 now. nausea without emesis. Physician History: 26 years old female with history of migraines presented in the ER with chief complaint of right lower quadrant pain for the last 5 days, constant, moderate to severe intensity, sharp in nature, aggravated with movement palpation, coughing and associated with nausea but no vomiting. Patient reports having low-grade fever and chills. She does have history of migraines and this morning woke up with a occipital area headache. She reports headache similar to previous episodes and has no difficulty movements of neck. No visual symptoms. Denies any urinary symptoms. Started her cycle today. Requesting GC chlamydia. Timing/Duration: day(s) (5), constant, gradual onset, worse Activities at Onset: rest Quality: sharpness Abdominal Pain Onset Location: RLQ Pain Radiation: no radiation Severity of Pain-Max: severe Severity of Pain-Current: moderate Modifying Factors: Worsens With: coughing, movement, palpation, position Associated Symptoms: headache, nausea Previous symptoms: no prior history Allergies/Adverse Reactions: No Known Drug Allergies Allergy (Verified 03/02/21 19:03) Home Medications: Carvedilol 3.125 mg [Coreg 3.125 MG] 3.125 mg PO BID 12/06/20 [History] Insulin Glargine,Hum.rec.anlog [Lantus] 45 unit SQ HS 12/06/20 [History] Insulin Lispro [Humalog Kwikpen U-100] 1 unit SQ TID PRN PRN 12/06/20 [History] Hx Tetanus, Diphtheria Vaccination/Date Given: Yes Hx Influenza Vaccination/Date Given: No Hx Pneumococcal Vaccination/Date Given: No Immunizations Up to Date: No Travel Risk - International Travel Have you traveled outside of the country in past 3 weeks: No - Coronavirus Screening Are you exhibiting any of the following symptoms?: No Close contact with a COVID-19 positive Pt in past 14-21 Days: No - Vaccine Status Have you recieved a Covid-19 vaccination: No - Review of Systems Constitutional: Fever, Chills Ears, Nose, & Throat: No Symptoms Respiratory: No Symptoms Cardiac: No Symptoms Abdominal/Gastrointestinal: Abdominal Pain, Nausea Genitourinary Symptoms: No Symptoms Musculoskeletal: No Symptoms Skin: No Symptoms Neurological: Headache Psychological: No Symptoms Endocrine: No Symptoms Hematologic/Lymphatic: No Symptoms Immunological/Allergic: No Symptoms - Past Medical History Pertinent Past Medical History: Yes Cardiac History: Hypertension Endocrine Medical History: Diabetes Type I - Past Surgical History Past Surgical History: Yes Gastrointestinal: Cholecystectomy Female Surgical History: Section, Tubal Ligation Other Surgical History: cyst removed from shoulder and back of head. - Social History Smoking Status: Never smoker Exposure to second hand smoke: Yes Drug Use: none Patient Lives Alone: No Significant Family History: no pertinent family hx - Female History Hx Now: No (tubal) - Nursing Vital Signs Nursing Vital Signs: Initial Vital Signs Temperature 101.9 F 03/02/21 18:55 Pulse Rate 129 H 03/02/21 18:55 Respiratory Rate 20 03/02/21 18:55 Blood Pressure 127/78 03/02/21 18:55 O2 Sat by Pulse Oximetry 100 03/02/21 18:55 Pain Scale Pain Intensity 4 - Physical Exam General Appearance: no apparent distress, alert, anxiety Eye Exam: PERRL/EOMI, eyes nml inspection Ears, Nose, Throat Exam: normal ENT inspection, TMs normal, pharynx normal Neck Exam: normal inspection, non-tender, supple, full range of motion, No meningismus Respiratory Exam: normal breath sounds, lungs clear Cardiovascular Exam: normal heart sounds, tachycardia Gastrointestinal/Abdomen Exam: soft, tenderness (Right lower quadrant with positive rebound tenderness and guarding) Back Exam: normal inspection, normal range of motion, No CVA tenderness Extremity Exam: normal inspection, normal range of motion Neurologic Exam: alert, oriented x 3, cooperative, bunch trimmer mold II-XII nml as tested, nml cerebellar function, sensation nml, No motor deficits, No sensory deficit Skin Exam: normal color SpO2 Interpretation: normal SpO2: 100 O2 Delivery: Oxymizer Ordered Tests: Active Orders 24 hr Category Date Time Status IV Insertion STAT Care 03/02/21 19:10 Active NPO (ED) STAT Care 03/02/21 19:10 Active ABDOMEN AND PELVIS W CONTRAST [CT] Stat Exams 03/02/21 19:10 Taken BMP Stat Lab 03/02/21 22:45 Completed CBC W DIFF Stat Lab 03/02/21 19:30 Completed CMP Stat Lab 03/02/21 19:30 Completed CULTURE,URINE Stat Lab 03/02/21 20:41 Received HCG,QUALITATIVE URINE Stat Lab 03/02/21 20:41 Completed LIPASE Stat Lab 03/02/21 19:30 Completed Manual Differential NC Stat Lab 03/02/21 19:30 Completed POCT GLUCOSE Stat Lab 03/02/21 22:23 Completed UA W/RFX UR CULTURE Stat Lab 03/02/21 20:41 Completed VENOUS BLOOD GAS Stat Lab 03/02/21 20:40 Completed Medication Summary Discontinued Medications Generic Name Dose Route Start Last Admin Trade Name Freq PRN Reason Stop Dose Admin Azithromycin 1,000 mg 03/02/21 22:41 03/02/21 23:11 Zithromax 250 Mg Tablet PO 03/02/21 22:42 1,000 mg STAT ONE Administration Azithromycin Confirm 03/02/21 23:09 Zithromax 250 Mg Tablet Administered 03/02/21 23:10 Dose 1,000 mg .ROUTE .STK-MED ONE Sodium Chloride 1,000 mls @ 999 mls/hr 03/02/21 19:10 03/02/21 20:35 Sodium Chloride 0.9% 1000 Ml IV 03/02/21 20:10 Infused .Q1H1M STA Infusion Sodium Chloride Confirm 03/02/21 19:21 Sodium Chloride 0.9% 1000 Ml Administered 03/02/21 19:22 Dose 1,000 mls @ ud .ROUTE .STK-MED ONE Potassium Chloride 20 meq in 100 mls @ 50 mls/hr 03/02/21 20:26 03/02/21 20:52 Potassium Chloride 20 Meq In Water 100ml IV 03/02/21 22:25 50 mls/hr STAT ONE Administration Potassium Chloride Confirm 03/02/21 20:49 Potassium Chloride 20 Meq In Water 100ml Administered 03/02/21 20:50 Dose 100 mls @ ud IV .STK-MED ONE Ceftriaxone Sodium/Dextrose 2 g in 50 mls @ 100 mls/hr 03/02/21 22:29 03/02/21 23:07 Rocephin 2 Gm-D5w 50ml Bag IV 03/02/21 22:58 Infused STAT STA Infusion Ceftriaxone Sodium/Dextrose Confirm 03/02/21 22:29 Rocephin 2 Gm-D5w 50ml Bag Administered 03/02/21 22:30 Dose 2 g in 50 mls @ ud IV .STK-MED ONE Morphine Sulfate 4 mg 03/02/21 19:10 03/02/21 19:33 Morphine Sulfate 4 Mg Inj IV 03/02/21 19:11 4 mg STAT ONE Administration Morphine Sulfate Confirm 03/02/21 19:21 Morphine Sulfate 4 Mg Inj Administered 03/02/21 19:22 Dose 4 mg .ROUTE .STK-MED ONE Ondansetron HCl 4 mg 03/02/21 19:10 03/02/21 19:33 Zofran 4 Mg/2 Ml Vial IV 03/02/21 19:11 4 mg STAT ONE Administration Ondansetron HCl Confirm 03/02/21 19:20 Zofran 4 Mg/2 Ml Vial Administered 03/02/21 19:21 Dose 4 mg .ROUTE .STK-MED ONE Potassium Chloride 40 meq 03/02/21 20:25 03/02/21 20:50 Klor Con 10 Meq PO 03/02/21 20:26 40 meq STAT ONE Administration Potassium Chloride Confirm 03/02/21 20:49 Klor Con 10 Meq Administered 03/02/21 20:50 Dose 40 meq PO .STK-MED ONE Lab/Rad Data: Laboratory Result Diagrams 03/02/21 19:30 03/02/21 22:45 Laboratory Results 03/02/21 03/02/21 03/02/21 Range/Units 22:45 22:23 20:45 WBC (4.0-10.5) K/mm3 RBC (4.1-5.4) M/mm3 Hgb (12.0-16.0) gm/dl Hct (35-47) % MCV (78-100) fl MCH (26-32) pg MCHC (32-36) g/dl RDW (11.5-14.0) % Plt Count (150-450) K/mm3 MPV (7.5-11.0) fl pO2/FiO2 Ratio % VBG pH (7.32-7.42) VBG pCO2 at Pat Temp (42-55) mm/Hg VBG pO2 at Pat Temp (25-40) mm/Hg VBG HCO3 (22-28) meq/L VBG O2 Sat (Chago) (95-100) VBG Base Excess (-2.0-2.0) VBG Hemoglobin VBG Carboxyhemoglobin (0.0-6.9) % T HGB POC Potassium (3.5-5.1) Sodium 133 L (137-145) mmol/L Potassium 3.8 (3.5-5.1) mmol/L Chloride 99 (98-107) mmol/L Carbon Dioxide 21 L (22-30) mmol/L Anion Gap 16.3 H (5-15) MEQ/L BUN 12 (7-17) mg/dL Creatinine 0.54 (0.52-1.04) mg/dL Estimated GFR > 60.0 ML/MIN Glucose 164 H (74-106) mg/dL POC Glucometer 148 H (74 to 106) mg/dL Calcium 8.3 L (8.4-10.2) mg/dL Total Bilirubin (0.2-1.3) mg/dL AST (14-36) U/L ALT (0-35) U/L Alkaline Phosphatase (38-126) U/L Serum Total Protein (6.3-8.2) g/dL Albumin (3.5-5.0) g/dL Lipase (23-300) U/L Urine Color (YELLOW) Urine Appearance (CLEAR) Urine pH (5-6) Ur Specific [place] (1.005-1.025) Urine Protein (Negative) Urine Ketones (NEGATIVE) Urine Blood (0-5) Patrick/ul Urine Nitrite (NEGATIVE) Urine Bilirubin (NEGATIVE) Urine Urobilinogen (0-1) mg/dL Ur Leukocyte Esterase (NEGATIVE) Urine WBC (Auto) (0-5) /HPF Urine RBC (Auto) (0-2) /HPF U Epithel Cells (Auto) (FEW) /HPF Urine Bacteria (Auto) (NEGATIVE) /HPF Urine Culture Reflexed (NO) Urine Glucose (NEGATIVE) mg/dL Urine HCG, Qual (Negative) Chlamydia DNA Probe DETECTED (NEGATIVE) N.gonorrhoeae DNA Probe DETECTED (NEGATIVE) 03/02/21 03/02/21 03/02/21 Range/Units 20:41 20:41 20:40 WBC (4.0-10.5) K/mm3 RBC (4.1-5.4) M/mm3 Hgb (12.0-16.0) gm/dl Hct (35-47) % MCV (78-100) fl MCH (26-32) pg MCHC (32-36) g/dl RDW (11.5-14.0) % Plt Count (150-450) K/mm3 MPV (7.5-11.0) fl pO2/FiO2 Ratio 21.0 % VBG pH 7.38 (7.32-7.42) VBG pCO2 at Pat Temp 31 L (42-55) mm/Hg VBG pO2 at Pat Temp 61 H (25-40) mm/Hg VBG HCO3 18.3 L (22-28) meq/L VBG O2 Sat (Chago) 92.6 L (95-100) VBG Base Excess -5.7 L (-2.0-2.0) VBG Hemoglobin 9.2 VBG Carboxyhemoglobin 5.8 (0.0-6.9) % T HGB POC Potassium 3.5 (3.5-5.1) Sodium (137-145) mmol/L Potassium (3.5-5.1) mmol/L Chloride (98-107) mmol/L Carbon Dioxide (22-30) mmol/L Anion Gap (5-15) MEQ/L BUN (7-17) mg/dL Creatinine (0.52-1.04) mg/dL Estimated GFR ML/MIN Glucose (74-106) mg/dL POC Glucometer (74 to 106) mg/dL Calcium (8.4-10.2) mg/dL Total Bilirubin (0.2-1.3) mg/dL AST (14-36) U/L ALT (0-35) U/L Alkaline Phosphatase (38-126) U/L Serum Total Protein (6.3-8.2) g/dL Albumin (3.5-5.0) g/dL Lipase (23-300) U/L Urine Color STRAW (YELLOW) Urine Appearance CLEAR (CLEAR) Urine pH 6.0 (5-6) Ur Specific [place] 1.011 (1.005-1.025) Urine Protein 30 (Negative) Urine Ketones NEGATIVE (NEGATIVE) Urine Blood MODERATE (0-5) Patrick/ul Urine Nitrite NEGATIVE (NEGATIVE) Urine Bilirubin NEGATIVE (NEGATIVE) Urine Urobilinogen NEGATIVE (0-1) mg/dL Ur Leukocyte Esterase NEGATIVE (NEGATIVE) Urine WBC (Auto) 11-15 (0-5) /HPF Urine RBC (Auto) 3-5 (0-2) /HPF U Epithel Cells (Auto) RARE (FEW) /HPF Urine Bacteria (Auto) NONE (NEGATIVE) /HPF Urine Culture Reflexed YES (NO) Urine Glucose >=500 (NEGATIVE) mg/dL Urine HCG, Qual NEGATIVE (Negative) Chlamydia DNA Probe (NEGATIVE) N.gonorrhoeae DNA Probe (NEGATIVE) 03/02/21 03/02/21 Range/Units 19:30 19:30 WBC 11.7 H (4.0-10.5) K/mm3 RBC 3.50 L (4.1-5.4) M/mm3 Hgb 8.7 L (12.0-16.0) gm/dl Hct 28.9 L (35-47) % MCV 82.6 (78-100) fl MCH 24.9 L (26-32) pg MCHC 30.1 L (32-36) g/dl RDW 15.3 H (11.5-14.0) % Plt Count 242 (150-450) K/mm3 MPV 11.4 H (7.5-11.0) fl pO2/FiO2 Ratio % VBG pH (7.32-7.42) VBG pCO2 at Pat Temp (42-55) mm/Hg VBG pO2 at Pat Temp (25-40) mm/Hg VBG HCO3 (22-28) meq/L VBG O2 Sat (Chago) (95-100) VBG Base Excess (-2.0-2.0) VBG Hemoglobin VBG Carboxyhemoglobin (0.0-6.9) % T HGB POC Potassium (3.5-5.1) Sodium 127 L (137-145) mmol/L Potassium 3.4 L (3.5-5.1) mmol/L Chloride 92 L (98-107) mmol/L Carbon Dioxide 16 L* (22-30) mmol/L Anion Gap 21.8 H (5-15) MEQ/L BUN 15 (7-17) mg/dL Creatinine 0.80 (0.52-1.04) mg/dL Estimated GFR > 60.0 ML/MIN Glucose 413 H (74-106) mg/dL POC Glucometer (74 to 106) mg/dL Calcium 8.6 (8.4-10.2) mg/dL Total Bilirubin < 0.10 L (0.2-1.3) mg/dL AST 35 (14-36) U/L ALT 23 (0-35) U/L Alkaline Phosphatase 125 (38-126) U/L Serum Total Protein 7.1 (6.3-8.2) g/dL Albumin 3.8 (3.5-5.0) g/dL Lipase 23 (23-300) U/L Urine Color (YELLOW) Urine Appearance (CLEAR) Urine pH (5-6) Ur Specific [place] (1.005-1.025) Urine Protein (Negative) Urine Ketones (NEGATIVE) Urine Blood (0-5) Patrick/ul Urine Nitrite (NEGATIVE) Urine Bilirubin (NEGATIVE) Urine Urobilinogen (0-1) mg/dL Ur Leukocyte Esterase (NEGATIVE) Urine WBC (Auto) (0-5) /HPF Urine RBC (Auto) (0-2) /HPF U Epithel Cells (Auto) (FEW) /HPF Urine Bacteria (Auto) (NEGATIVE) /HPF Urine Culture Reflexed (NO) Urine Glucose (NEGATIVE) mg/dL Urine HCG, Qual (Negative) Chlamydia DNA Probe (NEGATIVE) N.gonorrhoeae DNA Probe (NEGATIVE) - Progress Progress: improved, re-examined Progress Note: 26 years old is evaluated for right-sided abdominal pain with fever chills and nausea. She is given fluids and symptomatic treatment. Work-up showed mildly elevated white count, stable H&H with chronic anemia. He has a blood sugar in the 400s with low bicarb/hyponatremia. Urinalysis consistent with UTI. She is given 2 g of IV Rocephin. I have obtained CT abdomen pelvis with contrast which showed bilateral pyelonephritis. She is recommended admission but patient does not want to stay in the hospital at all. On repeated evaluation her blood sugar improved to 148 without any medications. I have repeated BMP and she is almost close the gap and bicarb is also much improved. I do not think patient is in our was in DKA. But more of a dehydration patient does report she did take insulin prior to arrival which is probably the reason her blood sugar is improved plus she got some fluids in the ER. She has a positive gonorrhea and chlamydia. She is given Zithromax orally as well. No obvious signs of PID. I have stressed on admission but patient does not want to stay, states I would follow-up with my primary care doctor and if gets worse will be back". Discussed with patient in detail about worsening of condition especially the fact that she is diabetic but she still wants to leave. She is given prescr iption of Levaquin to go home and recommended taking Tylenol/ibuprofen as needed. Discussed signs symptoms of worsening needing return to ER which she seems understanding. 03/02/21 23:31 Counseled pt/family regarding: lab results, diagnosis, need for follow-up, rad results - Departure Departure Disposition: Home Clinical Impression: Acute pyelonephritis, Gonorrhea, Chlamydia Condition: Stable Critical Care Time: No Referrals: PATRICIA LACKEY [Primary Care Provider] - (1-2 days for reevaluation) Instructions: Kidney Infection (DC), Chlamydia and Gonorrhea Additional Instructions: Take Tylenol/ibuprofen as needed for pain/fever chills etc. Continue with antibiotics. Follow-up with your primary care physician for reevaluation in 1 to 2 days. Keep your blood sugar well controlled. Return to ER for worsening pain/intractable vomiting/fever chills Prescriptions: Levofloxacin [Levaquin 500 MG Tablet] 500 mg PO DAILY #10 tablet
[2021-03-02] MEDS ORDERED: Zofran 4 MG/2 ML VIAL ONE (19:20)
[2021-03-02] MEDS ORDERED: Sodium Chloride 0.9% 1000 ML 1,000 ML ONE (19:21)
[2021-03-02] MEDS ORDERED: MORPHINE SULFATE 4 MG INJ ONE (19:21)
[2021-03-02 19:57] LABS: Hematocrit 28.9 % (35-47); Hemoglobin 8.7 gm/dl (12.0-16.0); Mean Cell Volume 82.6 fl (78-100); Mean Corpuscular Hemoglobin 24.9 pg (26-32); Mean Corpuscular Hgb Concent. 30.1 g/dl (32-36); Mean Platelet Volume 11.4 fl (7.5-11.0); Platelet Count 242 K/mm3 (150-450); Red Cell Distribution Width 15.3 % (11.5-14.0); White Blood Count 11.7 K/mm3 (4.0-10.5)
[2021-03-02 20:11] LABS: ALBUMIN 3.8 g/dL (3.5-5.0); ALKALINE PHOSPHATASE 125 U/L (38-126); ANION GAP 21.8 MEQ/L (5-15); BILIRUBIN,TOTAL < 0.10 mg/dL (0.2-1.3); BLOOD UREA NITROGEN 15 mg/dL (7-17); CHLORIDE 92 mmol/L (98-107); Calcium 8.6 mg/dL (8.4-10.2); EST GLOMERULAR FILTRATION RATE > 60.0 ML/MIN; Glucose 413 mg/dL (74-106); LIPASE 23 U/L (23-300); Potassium 3.4 mmol/L (3.5-5.1); SGOT/AST 35 U/L (14-36); SODIUM 127 mmol/L (137-145); Total Protein 7.1 g/dL (6.3-8.2)
[2021-03-02 20:17] LABS: SGPT/ALT 23 U/L (0-35)
[2021-03-02 20:19] LABS: Carbon Dioxide 16 mmol/L (22-30)
[2021-03-02] MEDS ORDERED: Klor Con 10 MEQ PO ONE ×2 (20:25→20:49)
[2021-03-02] MEDS ORDERED: POTASSIUM CHLORIDE 20 mEq IN WATER 100ML 20 MEQ/100 ML BAG IV ONE (20:26)
[2021-03-02 20:49] LABS: VBG BASE EXCESS -5.7 (-2.0-2.0); VBG CARBOXYHEMOGLOBIN 5.8 % T HGB (0.0-6.9); VBG HCO3- 18.3 meq/L (22-28); VBG HEMOGLOBIN 9.2; VBG O2 SATURATION 92.6 (95-100); VBG POTASSIUM 3.5 (3.5-5.1); VBG pH 7.38 (7.32-7.42)
[2021-03-02] MEDS ORDERED: POTASSIUM CHLORIDE 20 mEq IN WATER 100ML 0 ML IV ONE (20:49)
[2021-03-02 20:53] LABS: Appearance CLEAR (CLEAR); Bilirubin NEGATIVE (NEGATIVE); Blood MODERATE Ery/ul (0-5); Epithelial Cells RARE /HPF (FEW); Glucose >=500 mg/dL (NEGATIVE); Ketones NEGATIVE (NEGATIVE); Leukocyte Esterase NEGATIVE (NEGATIVE); Nitrite NEGATIVE (NEGATIVE); Protein,Urine Dip 30 (Negative); Specific Gravity 1.011 (1.005-1.025); Urobilinogen NEGATIVE mg/dL (0-1)
[2021-03-02 22:19] LABS: CHLAMYDIA DNA DETECTED (NEGATIVE); GC DNA Probe DETECTED (NEGATIVE)
[2021-03-02] MEDS ORDERED: ROCEPHIN 2 Gm-D5w 50ML BAG** 2 G/50 ML IVPB IV ONE (22:29)
[2021-03-02] MEDS ORDERED: ROCEPHIN 2 Gm-D5w 50ML BAG** 2 G/50 ML IVPB IV STA (22:29)
[2021-03-02] MEDS ORDERED: Zithromax 250 MG TABLET PO ONE (22:41)
[2021-03-02 23:02] LABS: ANION GAP 16.3 MEQ/L (5-15); BLOOD UREA NITROGEN 12 mg/dL (7-17); CHLORIDE 99 mmol/L (98-107); Calcium 8.3 mg/dL (8.4-10.2); Carbon Dioxide 21 mmol/L (22-30); Creatinine 1 0.54 mg/dL (0.52-1.04); EST GLOMERULAR FILTRATION RATE > 60.0 ML/MIN; Glucose 164 mg/dL (74-106); Potassium 3.8 mmol/L (3.5-5.1); SODIUM 133 mmol/L (137-145)
[2021-03-02] MEDS ORDERED: Zithromax 250 MG TABLET ONE (23:09)
[2021-03-02 23:13] VITALS: BP 142/95; PULSE 111
[2021-03-02 23:35] VITALS: O2SAT 100
[2021-03-02 23:50] LABS: Lymphocytes 16 % (24-44); Monocyte 12 % (0.0-12.0); Neutrophils 72 % (36.0-66.0); Platelet Estimate NORMAL (NORMAL); Total Cells Counted 100
--- NOTE | 2021-03-03 08:51 | XRAY ---
Indication: Right lower quadrant pain and fever 5 days. Nausea. Multiple contiguous axial images obtained through the abdomen and pelvis using 80 cc Isovue 370 contrast. Comparison: January 02, 2021. Lung bases remain clear. Heart not enlarged. New small hiatal hernia. Noncontrasted stomach and bowel loops appear nonobstructed. Normal retrocecal appendix. Again cholecystectomy. No free fluid/air. Both kidneys enhance and excrete with bilateral patchy heterogeneous enhancement favoring pyelonephritis. Urinary bladder demonstrates a few tiny trauma air bubbles either from recent catheterization versus gas-forming bacterial infection. New tampon in situ. Right lobe of the liver demonstrates 1.6 and 1 cm hemangiomas not seen on previous noncontrast exam. Remaining liver, pancreas, spleen, adrenal glands, ureters, and uterus unremarkable. Again minimal aortic calcifications. No AAA or pathologic retroperitoneal lymphadenopathy. Osseous structures intact. Impression: 1. New bilateral renal heterogeneous enhancement favoring pyelonephritis. Also urinary bladder intraluminal air bubbles either iatrogenic versus gas-forming bacterial infection. 2. Incidental small hiatal hernia and hepatic hemangiomas.
== END 2021-03-02 23:48 | disposition home or self-care (01) ==
LOC: ED 18:09
DX: N10 Acute pyelonephritis (principal); A54.24 Gonococcal female pelvic inflammatory disease; A74.9 Chlamydial infection, unspecified
CPT/HCPCS: 36000; 36415; 74177; 80048; 80053; 81001; 82805; 82947; 83690; 84703; 85025; 87086; 87491; 87591; 96360; 96374; 99284; J0696; J2270; J2405; J3480; A9270-GY